=== PATIENT | female | born 1935 | race Caucasian/White ===

== ENCOUNTER → 2016-05-20 | Emergency (ER) | payer OTHER, MEDICARE ==
[~2016-05-20] VITALS: Ht 162.6 cm; Wt 76.2 kg
[~2016-05-20] MED LIST: ADVAIR HFA 45-218 GM IH; ATIVAN0.5 MG PO; AZITHROMYCIN 2250 MG PO; BACLOFEN 10MG T10 MG PO; BENADRYL25 MG PO; BENTYL 10 MG CA10 M1 PO; BENTYL10 MG PO; BIOTIN1 MG PO; BYSTOLIC 5 MG5 M1 PO; CALCIUM 500 +1 EACH PO; CARAFATE 1 GM TA1 G1 PO; CARAFATE1 GM PO; CEFDINIR300 MG PO; CELEXA 20 MG TA20 M1 PO; CELEXA10 MG PO; CELEXA40 MG PO; CITALOPRAM HBR40 MG PO; CLONAZEPAM 1 MG1 M1 PO; CYMBALTA20 MG PO; DICYCLOMINE HCL10 MG PO; DILAUDID 2 MG TA2 MG; DILAUDID 2 MG TA2 MG PO; DILAUDID1 MG/1 ML PO; DILAUDID2 M1 PO; DILAUDID2 MG PO; GABAPENTIN 100100 MG; GABAPENTIN 100100 MG PO; GAVISCON500 MG PO; HYDROXYZINE; HYOSCYAMINE0.125 MG PO; HYOSCYAMINE0.15 MG PO; IBUPROFEN 200200 M1 PO; IBUPROFEN PO; ILEVRO1.7 ML OP; INTRAT INTRATHECA; INTRATHECAL MED; IRON325 PO; KLOR-CON 1010 MEQ PO; LASIX 20 MG TAB20 MG PO; LASIX 40 MG TAB40 M2 PO; LEXAPRO 10 MG T10 M1 PO; LEXAPRO20 MG PO; MIRALAX17 GM PO; NORCO 5-325 TA1 EACH PO; ONDANSETRON HCL4 M2 PO; PEPCID40 MG PO; PERCOCET 10-321 EACH PO; PHENERGAN 25 MG25 M1 PO; PLAVIX 75 MG TA75 MG PO; POTASSIUM20 PO; PREDNISONE 10 M10 MG PO; PREVACID 30MG C30 M1 PO; PRILOSEC 20 MG20 MG PO; PROMETHAZINE/C118 ML PO; PROTONIX40 M1 PO; PROZAC10 MG PO; REFRESH LIQUIGE15 ML OP; REFRESH TEARS15 ML OP; RESTASIS1 EACH OPHTHALMIC; SAVAYSA30 MG PO; SAVAYSA60 MG PO; SENNA-S TABLET1 EACH PO; SENOKOT-S1 TA1 PO; TIMOLOL MA0.25 %/52 OPHTHALMIC; VALIUM5 MG PO; VITAMIN B-12100 MCG PO; VITAMIN D1000 UNI1 PO; WELLBUTRIN 100100 MG PO; ZOFRAN ODT4 MG PO; [UNRECOGNIZED DRUG - REMARK]
[2016-05-20 12:16] VITALS: BP 139/61
== END ==
LOC: ER 12:16
DX: M25.511 Pain in right shoulder (principal); K21.9 Gastro-esophageal reflux disease without esophagitis; G89.29 Other chronic pain; F32.9 Major depressive disorder, single episode, unspecified; I48.91 Unspecified atrial fibrillation; G47.30 Sleep apnea, unspecified; M19.90 Unspecified osteoarthritis, unspecified site; Z87.891 Personal history of nicotine dependence; Z86.2 Personal history of diseases of the blood and blood-forming organs and certain disorders involving the immune mechanism; Z86.73 Personal history of transient ischemic attack (TIA), and cerebral infarction without residual deficits; W01.0XXA Fall on same level from slipping, tripping and stumbling without subsequent striking against object, initial encounter; Y93.89 Activity, other specified; Y92.098 Other place in other non-institutional residence as the place of occurrence of the external cause; Y99.8 Other external cause status

== ENCOUNTER → 2016-06-04 | Outpatient (CLI) | payer OTHER, MEDICARE | LOC: RAD 12:23 | DX: R06.00 Dyspnea, unspecified (principal); R06.02 Shortness of breath ==

== ENCOUNTER → 2016-06-14 | Outpatient (CLI) | payer OTHER, MEDICARE | END | disposition home or self-care (01) | LOC: RAD 09:04 | DX: S46.111A Strain of muscle, fascia and tendon of long head of biceps, right arm, initial encounter (principal); X58.XXXA Exposure to other specified factors, initial encounter ==

== ENCOUNTER → 2016-07-02 | Outpatient (CLI) | payer OTHER, MEDICARE ==
[~2016-07-02] VITALS: Ht 154.9 cm; Wt 82.4 kg
[~2016-07-02] MED LIST changes: +CLONAZEPAM2 MG PO
--- NOTE | ~2016-07-02 | HPC ---
[facility] [place] [address] PAIN MANAGEMENT CONSULTATION Name: LESLEY PANDYA Room #: REG NIKKI Bennett#: [id number] Admission: 07/02/16 Attend Phys: Beau Medina DO Discharge: Date of : 35 Report #: [id number] THIS REPORT FOR: //name// CC: Brandon Medina The patient is a very pleasant 80-year-old female typically treated by Dr. Marcin Hernandez for lumbar radiculopathy status post decompressive laminectomy. She had a right L5-S1 transforaminal epidural injection with Dr. Marcin Hernandez in April with good efficacy, though pain has begun to recur. It is in the right low back, posterior thigh down to the leg. PHYSICAL EXAMINATION: Shows pleasant 80-year-old female, noting her pain is a 5/10. Rises from chair using armrest, modestly antalgic gait. Vital signs are generally stable as noted in the EMR with modest systolic hypertension at 164/78. Positive straight leg raise on the right with slight decreased plantar flexion strength. ASSESSMENT: Symptomatic lumbar radiculopathy. RECOMMENDATION: Proceed with epidural injection under fluoroscopy today, right L4-L5 transforaminal. PROCEDURE NOTE: After written informed consent was obtained, the patient taken to the fluoroscopy suite, placed in prone position. After sterile prep and drape, skin wheal was raised. A 22-gauge 4-1/4 inch Tuohy needle was placed from a right paramedian approach targeting the superior aspect to the right L5-S1 neural foramen. I was unable to get good access. We elected to abort and proceed with an L4-L5 transforaminal PROCEDURE: Transforaminal lumbar epidural injection under fluoroscopy. PROCEDURE NOTE: After both written and informed consent was obtained including risk of spinal cord damage, infection, increased pain and paralysis, the patient agreed to proceed. The patient was taken to the fluoroscopy suite, placed in a prone position with appropriate abdominal bolstering. After sterile prep with ChloraPrep and sterile drape, a skin wheal with 1% Xylocaine was raised. A 22 gauge 4-1/2 inch epidural Tuohy needle was inserted. From an oblique approach into the posterior-superior aspect of the right L4-L5 neural foramen with continuous pressure on the glass syringe plunger for loss of resistance. Glass syringe was filled with 2 cc of 0.1 Xylocaine. The glass loss of resistance syringe was removed. A low volume extension tubing was connected, negative aspiration was accomplished for cerebrospinal fluid or blood. 1 mL of Omnipaque was injected which showed spread both within the epidural space and laterally along the nerve root. This was followed with 80 mg of triamcinolone plus 1 mL of 1.5% preservative-free Xylocaine. Needle was partially withdrawn, 0.5 mL of Xylocaine was injected to clear the needle and the needle was removed. The [address] [address] PAIN MANAGEMENT CONSULTATION Name: MIRIAN PANDYAY Room #: REG NIKKI Bennett#: [id number] Admission: 07/02/16 Attend Phys: Beau Medina DO Discharge: Date of : 35 Report #: [id number] was cleansed, band-aid was applied. The patient was allowed to ambulate to the recovery room, discharged in good and stable condition. <ELECTRONICALLY SIGNED> By: Beau Mednia DO 07/04/16 0758 1549 [id number] Beau Medina DO /nt
[2016-07-02 10:32] VITALS: BP 164/78
== END | disposition home or self-care (01) ==
LOC: PAIN 06:45
DX: M54.16 Radiculopathy, lumbar region (principal); G89.29 Other chronic pain; I50.9 Heart failure, unspecified; Z87.891 Personal history of nicotine dependence; Z98.890 Other specified postprocedural states

== ENCOUNTER → 2016-08-09 | Outpatient (CLI) | payer OTHER, MEDICARE ==
[~2016-08-09] VITALS: Ht 154.9 cm; Wt 83.1 kg
--- NOTE | ~2016-08-09 | HPC ---
[facility] [place] [address] PAIN MANAGEMENT CONSULTATION Name: LESLEY PANDYA Room #: REG NIKKI Sabrina#: [id number] Admission: 08/09/16 Attend Phys: Marcin Hernandez MD Discharge: Date of : 35 Report #: [id number] THIS REPORT FOR: //name// CC: Brandon Hernandez DATE OF SERVICE: 08/09/2016 Followup visit for management of intrathecal infusion of bupivacaine, clonidine and hydromorphone. The patient returns today for refill of her intrathecal pump. This is a new pump placed about 2 years ago, she has 64 remaining months on the battery. Her refill date is 08/15/2016. She has PTM device, which will allow for 6-8 additional activations per day, but she says she does not use it very often. I have told her on many occasions that it will not work like a pill, she will not feel it working, but she can use it to increase her baseline if she would like to. Her dose is moderate. I have been slowly decreasing her dose with a little notice from these adjustments. Intended a repeat reduction again today by slight amount down from 4.6 to 4.1. She reports that she is doing well. She feels tired, although there have been no changes in her medication. She takes gabapentin in addition to her Dilaudid as supplemental medications for her intractable back pain with radiculopathy. Dr. Medina gave her a transforaminal epidural injection under fluoroscopic guidance at last visit. She thinks that might have provided for some relief. I have also given her injection. She had one in April. These seemed to be helpful when her pain becomes more severe allowing her to use less of her hydromorphone, which we are trying to avoid. PHYSICAL EXAMINATION: She is pleasant, alert and oriented. Her affect seems unchanged to me. Her vital signs, her blood pressure is 129/52, heart rate is 64. Her BMI is unchanged at 34.6. She is able to easily move from sitting to standing position and ambulates without difficulty. She has tenderness across her back scar. The pump is in the right lower quadrant, nontender. IMPRESSION: 1. Chronic intractable low back pain with radiculopathy on the right. 2. Intrathecal pump with management of complex infusion. PLAN: Refill on intrathecal infusion pump with a reprogramming session. PROCEDURE: Skin was prepped with ChloraPrep. Skin anesthetized and a 22-gauge non-coring needle advanced in the pump. Old medication removed and discarded and refilled with a combination clonidine, bupivacaine and hydromorphone. The [address] [address] PAIN MANAGEMENT CONSULTATION Name: LESLEY PANDYA Room #: REG NIKKI Bennett#: [id number] Admission: 08/09/16 Attend Phys: Marcin Hernandez MD Discharge: Date of : 35 Report #: [id number] pump was reprogrammed at a rate of 4.1 mg of hydromorphone per day, similarly lowing the other drugs by 9%. She was given a prescription for 60 hydromorphone, which is used only for breakthrough pain when severe. These 4 mg tablets are used very sparingly with good success. Safeguarding precautions under terms of our opioid agreement were reviewed. She will continue to use them carefully. Followup visit planned in 2 months. By: [id number] Marcin Hernandez MD /nt
[2016-08-09 11:12] VITALS: BP 129/52
== END | disposition home or self-care (01) ==
LOC: PAIN 06:42
DX: M54.16 Radiculopathy, lumbar region (principal); G89.29 Other chronic pain; I50.9 Heart failure, unspecified; Z79.899 Other long term (current) drug therapy; Z98.890 Other specified postprocedural states; Z87.891 Personal history of nicotine dependence

== ENCOUNTER → 2016-10-29 | Outpatient (CLI) | payer OTHER, MEDICARE ==
[~2016-10-29] VITALS: Ht 152.4 cm; Wt 83.3 kg
--- NOTE | ~2016-10-29 | HPC ---
[facility] [address] [place] [address] PAIN MANAGEMENT CONSULTATION Name: LESLEY PANDYA Room #: REG NIKKI Arellano.#: [id number] Admission: 10/29/16 Attend Phys: Marcin Hernandez MD Discharge: Date of : 35 Report #: [id number] THIS REPORT FOR: //name// CC: Brandon Hernandez DATE OF SERVICE: 10/29/2016 Followup visit for chronic back pain, post-laminectomy and fusion. SUBJECTIVE: The patient returns to pain clinic today for refill of her intrathecal infusion pump. She remains on relatively high doses of medication and has a PTM device as well. We have tried to minimize her use of systemic opioids and have done pretty good job, but I allowed her to use small doses of hydromorphone when the pain is quite severe. Her pump is infusing a combination of hydromorphone, bupivacaine and clonidine. Refill session is indicated today. For her radicular pain, she has also responded nicely at times to transforaminal epidural injection at L5-S1. This is the level where she had her laminectomy and she has L5-S1 cages in place for fusion. Her pain today radiates in that distribution. MEDICATIONS: Reviewed and reconciled. ALLERGIES: None. PAST MEDICAL HISTORY: The patient has been on Savaysa blood thinning medication. She discontinued it on 10/23 in anticipation of her injection, which is an appropriate interval. PHYSICAL EXAMINATION: GENERAL: She is pleasant and oriented. VITAL SIGNS: Blood pressure 123/43, heart rate is 58. BMI is 35.9. MUSCULOSKELETAL: She walks with pain and antalgic features to her gait. She complains of pain into her right leg. She has positive straight leg raising that radiates into the right buttock and down the right leg all the way to the calf and ankle. Sensation is intact. There is a generalized weakness throughout the right leg. IMPRESSION: 1. Chronic low back pain with radiculopathy, status post L5-S1 fusion. 2. Management of intrathecal infusion pump with complex infusion refill indicated today. 3. History of depression and transient ischemic attack. 4. Sleep apnea. [facility] [address] [place] [address] PAIN MANAGEMENT CONSULTATION Name: LESLEY PANDYA Room #: REG NIKKI Sabrina#: [id number] Admission: 10/29/16 Attend Phys: Marcin Hernandez MD Discharge: Date of : 35 Report #: [id number] 5. Atrial fibrillation. 6. Gastroesophageal reflux disease. PROCEDURE #1: Refill of intrathecal infusion pump. DESCRIPTION OF PROCEDURE: Skin was prepped with ChloraPrep, skin anesthetized and a 22-gauge non-coring needle advanced in the pump. Old medication removed and discarded. Anticipated 8 mL and retrieved the same. The pump was then refilled with a combination of hydromorphone, bupivacaine and clonidine daily dose with maximum activations will be hydromorphone 6.5, bupivacaine 4.3, clonidine 21 mcg per day. Refill interval is roughly 88 days. PROCEDURE #2: Transforaminal epidural injection L5-S1 on the right ____. DESCRIPTION OF PROCEDURE: The patient was taken to fluoroscopic suite, placed prone, skin prepped with ChloraPrep. Skin anesthetized over the L5-S1 neural foramen. Using triplanar fluoroscopic views, I advanced the needle into the neural foramen. A 1 mL of Omnipaque reproduced symptoms into the right leg. Injection was easy. There was no restriction. I then injected 3 mL of 0.5% lidocaine mixed with 80 mg triamcinolone. She tolerated the procedure with some discomfort, but was improved by the time she left the room. Followup visit is scheduled for refill of her intrathecal infusion pump at about 80 days. We will continue to provide her hydromorphone under terms of written opioid agreement. Safeguarding the medications and cautious use has been described at each visit. By: [id number] 0047 Marcin Hernandez MD /nt
[2016-10-29 12:41] VITALS: BP 123/43
== END | disposition home or self-care (01) ==
LOC: PAIN 07:23
DX: Z45.1 Encounter for adjustment and management of infusion pump (principal); M54.16 Radiculopathy, lumbar region; F32.9 Major depressive disorder, single episode, unspecified; Z86.73 Personal history of transient ischemic attack (TIA), and cerebral infarction without residual deficits; Z68.35 Body mass index [BMI] 35.0-35.9, adult; I48.91 Unspecified atrial fibrillation; K21.9 Gastro-esophageal reflux disease without esophagitis; Z87.891 Personal history of nicotine dependence

== ENCOUNTER 2017-02-04 11:16 | Inpatient (IN) | payer OTHER, MEDICARE ==
[~2017-02-04] VITALS: Ht 154.9 cm; Wt 80.7 kg
--- NOTE | ~2017-02-04 | EKG ---
[place] [address] [facility] [employer] [place] [address] ELECTROCARDIOGRAM REPORT Name: LESLEY PANDYA Room #: 433-I ADM IN M.R.#: [id number] Admission: 02/04/17 Attend Phys: Brandon Nascimento MD Discharge: Date of : 35 Report #: [id number] THIS REPORT FOR: //name// [facility] ED Test Date: 2017-02-04 Test Time: 11:38:49 Pat Name: LESLEY PANDYA Department: Room: 433 I Gender: F Peripatologist: GREG : 1935 Requested By: Antony Akins Order Number: [id number] MD: Darnell Yadav Measurements Intervals [place] Rate: 122 P: [place]: QRS: 10 QRSD: 87 T: 36 QT: 298 QTc: 425 Interpretive Statements Atrial fibrillation Ventricular premature complex Low voltage, precordial leads Compared to ECG 01/22/2016 09:09:50 Low QRS voltage now present Electronically Signed On 02-05-2017 8:28:02 ROUTE SPECIALIST by Darnell Yadav [email or web address] <ELECTRONICALLY SIGNED> By: Darnell Yadav MD, [facility] 02/05/17 0828 1138 113 Darnell Yadav MD, [facility] /EPI
[~2017-02-04 11:16] MED LIST changes: +OMEPRAZOLE40 MG PO
[2017-02-04 11:40] VITALS: BP 152/80
[2017-02-04 12:16] LABS: HEMATOCRIT 35.7 % (37.0-47.0); HEMOGLOBIN 11.7 gm/dL (12.0-15.0); MCH 31.2 pg (26.0-34.0); MCHC 32.7 g/dL (28.0-37.0); MCV 95.5 fL (80.0-100.0); RBC 3.74 mil/uL (4.20-5.00); RDW 14.8 % (10.5-14.5); WBC 7.2 thou/uL (4.0-11.0)
[2017-02-04 12:41] LABS: ANION GAP 7 mmol/L (7-16); BUN 20 mg/dL (7-18); CALCIUM 9.2 mg/dL (8.5-10.1); CHLORIDE 104 mmol/L (98-107); CO2 31 mmol/L (21-32); CREATININE 1.3 mg/dL (0.6-1.0); POTASSIUM 4.1 mmol/L (3.5-5.1); SODIUM 142 mmol/L (136-145)
[2017-02-04 12:50] LABS: MAGNESIUM 2.3 mg/dL (1.8-2.4); TROPONIN-I < 0.04 ng/mL (<0.06)
[2017-02-04 12:56] LABS: GLUCOSE 109 mg/dL (74-106)
[2017-02-04 13:18] VITALS: BP 152/80
[2017-02-04 13:53] LABS: URINE BILIRUBIN NEGATIVE (Negative); URINE BLOOD TRACE (Negative); URINE COLOR YELLOW; URINE GLUCOSE-RANDOM* NEGATIVE (Negative); URINE KETONES NEGATIVE (Negative); URINE LEUKOCYTES-REFLEX NEGATIVE (Negative); URINE PROTEIN (DIPSTICK) NEGATIVE (Negative); URINE SPECIFIC GRAVITY <= 1.005 (1.005-1.035); URINE UROBILINOGEN 0.2 E.U./dl (0.2-1.0)
[2017-02-04 14:53] VITALS: BP 132/63
[2017-02-04 17:05] VITALS: BP 121/56
[2017-02-04 20:40] VITALS: BP 121/42
[2017-02-05 00:54] VITALS: BP 113/60
[2017-02-05 06:24] VITALS: BP 120/31
[2017-02-05 06:36] LABS: CREATININE 1.3 mg/dL (0.6-1.0); POTASSIUM 4.6 mmol/L (3.5-5.1)
[2017-02-05 08:00] VITALS: BP 125/49
[2017-02-05 13:27] VITALS: BP 125/49
[2017-02-07] MEDS ORDERED: DILAUDID 2 MG TA2 MG PO (16:22)
[2017-02-14] MEDS ORDERED: DILAUDID 2 MG TA2 MG PO ×3 (14:04→14:07)
== END 2017-02-05 15:45 | disposition home or self-care (01) | DRG 292 ==
LOC: ER 11:16 → 4S 13:12 → EROBS 13:12 → 4S 15:07 → ENTRNSPT 02-05 13:46 → EDTRNSPTSTS 02-05 13:49 → 4S 02-05 15:45
PROVIDERS: Emergency Medicine; Family Medicine
DX: I11.0 Hypertensive heart disease with heart failure (principal); N17.9 Acute kidney failure, unspecified; I50.43 Acute on chronic combined systolic (congestive) and diastolic (congestive) heart failure; J44.9 Chronic obstructive pulmonary disease, unspecified; M19.90 Unspecified osteoarthritis, unspecified site; K21.9 Gastro-esophageal reflux disease without esophagitis; G89.29 Other chronic pain; F32.9 Major depressive disorder, single episode, unspecified; Z96.651 Presence of right artificial knee joint; M06.9 Rheumatoid arthritis, unspecified; I48.0 Paroxysmal atrial fibrillation; N28.9 Disorder of kidney and ureter, unspecified; I87.2 Venous insufficiency (chronic) (peripheral); Z90.49 Acquired absence of other specified parts of digestive tract; Z86.010 Personal history of colon polyps; Z86.73 Personal history of transient ischemic attack (TIA), and cerebral infarction without residual deficits; Z98.41 Cataract extraction status, right eye; Z98.42 Cataract extraction status, left eye; Z87.891 Personal history of nicotine dependence; Z79.01 Long term (current) use of anticoagulants
CPT/HCPCS: 10100

== ENCOUNTER → 2017-02-14 | Outpatient (CLI) | payer OTHER, MEDICARE ==
[~2017-02-14] VITALS: Ht 152.4 cm; Wt 83.9 kg
--- NOTE | ~2017-02-14 | HPC ---
[facility] [place] [address] PAIN MANAGEMENT CONSULTATION Name: LESLEY PANDYA Room #: REG NIKKI Arellano.#: [id number] Admission: 02/14/17 Attend Phys: Marcin Hernandez MD Discharge: Date of : 35 Report #: [id number] THIS REPORT FOR: //name// CC: Brandon Hernandez DATE OF SERVICE: 02/14/2017 Followup visit for chronic back pain and management of intrathecal infusion pump. The patient returns to Pain Clinic today for refill of her pump. She has a combination of Dilaudid, bupivacaine, and clonidine infusing. In addition, I provided with small amounts of hydromorphone, which she uses no more than about 2-3 tablets a day. These 2 mg tablets are helpful when her pain is severe. She has had no significant side effects from the medication. She is on opioid agreement, which we reviewed in detail today. The importance of managing side effects was reviewed and constipation has been managed effectively with Senokot-S. She has numerous medical problems and follows with her primary care physician, Dr. Brandon Nascimento. Dr. Abhilash Watson is her delivery director and helps with the cardiac issues including hypertension. She has COPD and wears nocturnal oxygen at times. PHYSICAL EXAMINATION: She is pleasant, alert and oriented. Blood pressure 124/62, heart rate 65, respirations 16, BMI 36.1. Her obesity was discussed and weight loss measures reviewed. She has tenderness across her low back. Pump is in the right lower quadrant and the abdomen nontender. IMPRESSION: 1. Chronic low back pain. 2. History of depression. 3. Sleep apnea. 4. Atrial fibrillation. 5. Gastroesophageal reflux disease. 6. Osteoarthritis. 7. Management of intrathecal infusion pump. 8. Management of high-risk opioid medication under terms of written opioid agreement. PROCEDURE: Refill and reprogram of intrathecal pump. Skin was prepped with ChloraPrep. Skin anesthetized and a 22-gauge non-coring needle advanced in the pump. Old medication removed and discarded. Pump was refilled with hydromorphone, clonidine and bupivacaine and reprogrammed. [facility] [address] [place] [address] PAIN MANAGEMENT CONSULTATION Name: LESLEY PANDYA Room #: REG CL Sabrina#: [id number] Admission: 02/14/17 Attend Phys: Marcin Hernandez MD Discharge: Date of : 35 Report #: [id number] DISCHARGE INFORMATION: Will be as follows: Maximum daily dose of Dilaudid 6.0, bupivacaine 4.0, clonidine 20 mcg. Refill interval 88 days on 05/13/2017. Estimated NIGEL is 58 months. By: [id number] [id number] Marcin Hernandez MD /nt
[2017-02-14 13:24] VITALS: BP 124/62
== END | disposition home or self-care (01) ==
LOC: PAIN 06:49
DX: Z45.1 Encounter for adjustment and management of infusion pump (principal); M54.5 Low back pain; G89.29 Other chronic pain; I50.9 Heart failure, unspecified; I48.91 Unspecified atrial fibrillation; G47.33 Obstructive sleep apnea (adult) (pediatric); K21.9 Gastro-esophageal reflux disease without esophagitis; M19.90 Unspecified osteoarthritis, unspecified site; Z79.891 Long term (current) use of opiate analgesic; Z79.899 Other long term (current) drug therapy

== ENCOUNTER 2017-02-20 13:06 | Inpatient (IN) | payer OTHER, MEDICARE ==
[~2017-02-20] VITALS: Ht 162.6 cm; Wt 81.7 kg
--- NOTE | ~2017-02-20 | EKG ---
[address] [place] [address] ELECTROCARDIOGRAM REPORT Name: LESLEY PANDYA Room #: 170-10 ADM IN M.R.#: [id number] Admission: 02/20/17 Attend Phys: Brandon Nascimento MD Discharge: Date of : 35 Report #: [id number] THIS REPORT FOR: //name// [facility] ED Test Date: 2017-02-20 Test Time: 13:27:20 Pat Name: LESLEY PANDYA Department: Room: 170 Gender: F Orchid Grower: NOEMY : 1935 Requested By: Antony Akins Order Number: [id number] MD: Carlo Webber Measurements Intervals [place] Rate: 68 P: 56 NC: 184 QRS: 2 QRSD: 117 T: 52 QT: 392 QTc: 417 Interpretive Statements Sinus rhythm Consider left atrial enlargement Nonspecific intraventricular conduction delay Low voltage, extremity and precordial leads Compared to ECG 02/04/2017 11:38:49 Intraventricular conduction delay now present Atrial fibrillation no longer present Ventricular premature complex(es) no longer present Electronically Signed On 02-20-2017 16:20:52 CASHIER COURTESY [employer]OTH by Carlo Webber [email or web address] <ELECTRONICALLY SIGNED> By: Carlo Webber MD 02/20/17 1620 1327 1327 Carlo Webber MD /EPI
[2017-02-20] MEDS ORDERED: RESTASIS1 EACH OPHTHALMIC (13:40)
[2017-02-20 14:14] LABS: HEMATOCRIT 32.9 % (37.0-47.0); HEMOGLOBIN 10.9 gm/dL (12.0-15.0); MCH 31.6 pg (26.0-34.0); MCHC 33.2 g/dL (28.0-37.0); RBC 3.46 mil/uL (4.20-5.00); RDW 14.5 % (10.5-14.5); WBC 7.8 thou/uL (4.0-11.0)
[2017-02-20 14:18] LABS: ANION GAP 8 mmol/L (7-16); BUN 27 mg/dL (7-18); CALCIUM 9.4 mg/dL (8.5-10.1); CHLORIDE 101 mmol/L (98-107); CO2 31 mmol/L (21-32); CREATININE 1.5 mg/dL (0.6-1.0); POTASSIUM 4.5 mmol/L (3.5-5.1); SODIUM 140 mmol/L (136-145)
[2017-02-20 14:28] LABS: TROPONIN-I < 0.04 ng/mL (<0.06)
[2017-02-20 14:37] LABS: GLUCOSE 106 mg/dL (74-106)
[2017-02-20 15:58] VITALS: BP 106/87
[2017-02-20 18:27] VITALS: BP 107/59
[2017-03-21] MEDS ORDERED: DILAUDID 2 MG TA2 MG PO (13:52)
[2017-05-23] MEDS ORDERED: VENTOLIN HFA 1818 GM INH (10:23)
[2017-05-23] MEDS ORDERED: DILAUDID 2 MG TA2 MG PO (10:35)
[2017-06-20] MEDS ORDERED: XARELTO20 MG PO (14:18)
[2017-06-20] MEDS ORDERED: CLONAZEPAM 1 MG1 M1 PO (14:19)
[2017-07-18] MEDS ORDERED: DILAUDID 2 MG TA2 MG PO (10:26)
[2017-08-23] MEDS ORDERED: DILAUDID 2 MG TA2 MG PO (13:05)
[2017-10-17] MEDS ORDERED: DILAUDID 2 MG TA2 MG PO (12:47)
[2017-11-07] MEDS ORDERED: HYDROCODON-ACE1 EAC5 PO (15:34)
[2017-12-02] MEDS ORDERED: HYDROCODON-ACE1 EAC5 PO (09:42)
== END 2017-02-20 18:27 | disposition home or self-care (01) | DRG 206 ==
LOC: ER 13:06 → EROBS 15:39
PROVIDERS: Emergency Medicine
DX: M94.0 Chondrocostal junction syndrome [Tietze] (principal); I48.91 Unspecified atrial fibrillation; J44.9 Chronic obstructive pulmonary disease, unspecified; I50.9 Heart failure, unspecified; F32.9 Major depressive disorder, single episode, unspecified; M19.90 Unspecified osteoarthritis, unspecified site; K21.9 Gastro-esophageal reflux disease without esophagitis; Z96.651 Presence of right artificial knee joint; Z86.73 Personal history of transient ischemic attack (TIA), and cerebral infarction without residual deficits; Z90.49 Acquired absence of other specified parts of digestive tract; Z98.42 Cataract extraction status, left eye; Z98.41 Cataract extraction status, right eye; Z98.1 Arthrodesis status; Z87.891 Personal history of nicotine dependence; Z79.899 Other long term (current) drug therapy

== ENCOUNTER → 2017-03-11 | Outpatient (CLI) | payer OTHER, MEDICARE ==
[~2017-03-11] MED LIST changes: +HYDROCODON-ACE1 EAC5 PO; +LEVAQUIN 500 M500 M2 PO; +SENNA-DOCUSATE1 EACH PO; +VENTOLIN HFA 1818 GM INH; +XARELTO20 MG PO
[2017-03-11 09:16] LABS: HEMOGLOBIN 11.6 gm/dL (12.0-15.0); MCH 30.8 pg (26.0-34.0); MCHC 32.2 g/dL (28.0-37.0); MCV 95.8 fL (80.0-100.0); RBC 3.75 mil/uL (4.20-5.00); RDW 14.6 % (10.5-14.5); WBC 6.7 thou/uL (4.0-11.0)
[2017-03-11 09:29] LABS: ALBUMIN 3.3 g/dL (3.4-5.0); CALCIUM 9.1 mg/dL (8.5-10.1); CREATININE 1.1 mg/dL (0.6-1.0); POTASSIUM 3.9 mmol/L (3.5-5.1); TOTAL BILIRUBIN 0.2 mg/dL (<0.1-1.0); TOTAL PROTEIN 6.2 g/dL (6.4-8.2)
== END ==
LOC: LABMALL 08:44 → 4E 12:38 → LABMALL 12:38
PROVIDERS: Family Medicine
DX: K86.89 Other specified diseases of pancreas (principal); Z90.49 Acquired absence of other specified parts of digestive tract

== ENCOUNTER 2017-03-12 16:57 | Inpatient (IN) | payer OTHER, MEDICARE ==
[~2017-03-12] VITALS: Ht 154.9 cm; Wt 83.5 kg
[~2017-03-12 16:57] MED LIST changes: -HYDROCODON-ACE1 EAC5 PO; -LEVAQUIN 500 M500 M2 PO; -SENNA-DOCUSATE1 EACH PO; -VENTOLIN HFA 1818 GM INH; -XARELTO20 MG PO
[2017-03-12 18:12] VITALS: BP 139/83
[2017-03-12 19:48] VITALS: BP 160/87
[2017-03-12 22:19] LABS: HEMATOCRIT 33.7 % (37.0-47.0); HEMOGLOBIN 11.1 gm/dL (12.0-15.0); MCH 31.5 pg (26.0-34.0); MCHC 32.9 g/dL (28.0-37.0); MCV 95.6 fL (80.0-100.0); RBC 3.52 mil/uL (4.20-5.00); RDW 14.6 % (10.5-14.5); WBC 6.9 thou/uL (4.0-11.0)
[2017-03-12 22:32] LABS: ALBUMIN 2.9 g/dL (3.4-5.0); CALCIUM 8.9 mg/dL (8.5-10.1); CREATININE 1.1 mg/dL (0.6-1.0); POTASSIUM 4.3 mmol/L (3.5-5.1); TOTAL BILIRUBIN 0.1 mg/dL (<0.1-1.0)
[2017-03-12 23:09] LABS: URINE BILIRUBIN NEGATIVE (Negative); URINE BLOOD 2+ (Negative); URINE CLARITY CLEAR; URINE COLOR YELLOW; URINE GLUCOSE-RANDOM* NEGATIVE (Negative); URINE KETONES NEGATIVE (Negative); URINE LEUKOCYTES-REFLEX NEGATIVE (Negative); URINE NITRITE-REFLEX NEGATIVE (Negative); URINE PROTEIN (DIPSTICK) NEGATIVE (Negative); URINE UROBILINOGEN 0.2 E.U./dl (0.2-1.0)
[2017-03-12 23:24] LABS: BACTERIA-REFLEX None Seen /HPF (None Seen); CASTS None Seen /LPF (None Seen); CRYSTALS None Seen /LPF (None Seen); MUCUS None Seen strn/LPF (None Seen); SQUAMOUS None Seen /LPF (0-3); URINE RBC 0-2 Rare /HPF (0-2); URINE WBC-REFLEX None Seen /HPF (0-5)
[2017-03-13 03:35] VITALS: BP 120/53
[2017-03-13 07:50] VITALS: BP 96/80
[2017-03-13 15:37] VITALS: BP 105/51
[2017-03-13 20:45] VITALS: BP 116/61
[2017-03-14 04:08] VITALS: BP 121/75
[2017-03-14 08:26] VITALS: BP 107/50
[2017-03-14 16:32] VITALS: BP 97/81
[2017-03-14 17:01] LABS: HEMATOCRIT 32.4 % (37.0-47.0); HEMOGLOBIN 10.7 gm/dL (12.0-15.0); MCH 31.7 pg (26.0-34.0); MCHC 33.1 g/dL (28.0-37.0); MCV 95.7 fL (80.0-100.0); RBC 3.38 mil/uL (4.20-5.00); RDW 14.6 % (10.5-14.5); WBC 6.8 thou/uL (4.0-11.0)
[2017-03-14 21:13] VITALS: BP 126/56
[2017-03-15 04:44] VITALS: BP 119/50
[2017-03-15] MEDS ORDERED: LEVAQUIN 500 M500 M2 PO (07:34)
[2017-03-15 13:02] VITALS: BP 119/50
[2017-03-21] MEDS ORDERED: DILAUDID 2 MG TA2 MG PO (13:52)
[2017-05-23] MEDS ORDERED: VENTOLIN HFA 1818 GM INH (10:23)
[2017-05-23] MEDS ORDERED: DILAUDID 2 MG TA2 MG PO (10:35)
[2017-06-20] MEDS ORDERED: XARELTO20 MG PO (14:18)
[2017-06-20] MEDS ORDERED: CLONAZEPAM 1 MG1 M1 PO (14:19)
[2017-07-18] MEDS ORDERED: DILAUDID 2 MG TA2 MG PO (10:26)
[2017-08-23] MEDS ORDERED: DILAUDID 2 MG TA2 MG PO (13:05)
[2017-10-17] MEDS ORDERED: DILAUDID 2 MG TA2 MG PO (12:47)
[2017-11-07] MEDS ORDERED: HYDROCODON-ACE1 EAC5 PO (15:34)
[2017-12-02] MEDS ORDERED: HYDROCODON-ACE1 EAC5 PO (09:42)
== END 2017-03-15 14:40 | disposition home health service (06) | DRG 392 ==
LOC: 4S 16:57
PROVIDERS: Family Medicine; Internal Medicine Gastroenterology
DX: K57.92 Diverticulitis of intestine, part unspecified, without perforation or abscess without bleeding (principal); Z96.651 Presence of right artificial knee joint; Z98.42 Cataract extraction status, left eye; K21.9 Gastro-esophageal reflux disease without esophagitis; I48.91 Unspecified atrial fibrillation; G89.29 Other chronic pain; J44.9 Chronic obstructive pulmonary disease, unspecified; I50.9 Heart failure, unspecified; F32.9 Major depressive disorder, single episode, unspecified; I11.0 Hypertensive heart disease with heart failure; K57.90 Diverticulosis of intestine, part unspecified, without perforation or abscess without bleeding; R13.10 Dysphagia, unspecified; K59.00 Constipation, unspecified; K76.0 Fatty (change of) liver, not elsewhere classified; M54.9 Dorsalgia, unspecified; Z79.899 Other long term (current) drug therapy; Z90.49 Acquired absence of other specified parts of digestive tract; Z98.1 Arthrodesis status; Z98.41 Cataract extraction status, right eye; Z86.73 Personal history of transient ischemic attack (TIA), and cerebral infarction without residual deficits; Z87.891 Personal history of nicotine dependence; Z86.010 Personal history of colon polyps
CPT/HCPCS: 10102

== ENCOUNTER → 2017-03-21 | Outpatient (CLI) | payer OTHER, MEDICARE ==
[~2017-03-21] VITALS: Ht 154.9 cm; Wt 82.6 kg
[~2017-03-21] MED LIST changes: +HYDROCODON-ACE1 EAC5 PO; +LEVAQUIN 500 M500 M2 PO; +SENNA-DOCUSATE1 EACH PO; +VENTOLIN HFA 1818 GM INH; +XARELTO20 MG PO
--- NOTE | ~2017-03-21 | HPC ---
[facility] [place] [address] PAIN MANAGEMENT CONSULTATION Name: LESLEY PANDYA Room #: REG RANJEETOfelia Arellano.#: [id number] Admission: 03/21/17 Attend Phys: Marcin Hernandez MD Discharge: Date of : 35 Report #: [id number] THIS REPORT FOR: //name// CC: Brandon Hernandez DATE OF SERVICE: 03/21/2017 DATE OF REGISTRATION: 03/21/2017 Followup visit for chronic pain, now with multiple pain generators. The patient was recently hospitalized with left lower quadrant abdominal pain. At first, it was felt this might be due to her back, but as time went on, it was considered that it may be an intra-abdominal pain. She was placed on Levaquin for possible diverticulitis. Her pain is eased somewhat, but was added on to my clinic today because her pain has continued to bother her at the level of 9/10. She reports it is worse with standing and walking and she will get some relief when she takes Dilaudid and assumes if she is lying in supine position or sits in a comfortable chair. In addition to the left lower quadrant abdominal pain, she complains of osteoarthritis pain of the right shoulder and the left shoulder as well as the left knee. Her son-in-law Dr. Juan Yeager provided her with some cortisone injections in all 3 of those joints with some improvement. She has had multiple surgeries including extensive lumbar surgery, colon resection, joint replacements, cervical fusion and intramedullary jessee of the right tibia following fracture in 2001. She has struggled with intermittent depression, chronic pain and anxiety. She lives with congestive heart failure, COPD, atrial fibrillation, gastroesophageal reflux disease. With all of her medical issues, she has been able to remain independent in her home with her . She has been able to provide for simple activities of daily living such as hygiene with minimal assistance. MEDICATIONS: Reviewed and reconciled, her list includes hydromorphone 2 mg 1-2 tablets as needed for breakthrough pain q. 4 hours, Lexapro 20 mg daily, omeprazole, gabapentin 100 mg t.i.d., potassium, Carafate, Savaysa, Bystolic, Lasix, MiraLax. ALLERGIES: None. PHYSICAL EXAMINATION: GENERAL: Her affect is anxious. This is typical. VITAL SIGNS: Her blood pressure is 117/57, heart rate 63, respirations 16, BMI [facility] [address] [place] [address] PAIN MANAGEMENT CONSULTATION Name: LESLEY PANDYA Room #: REG NIKKI ArellanoBlanca#: [id number] Admission: 03/21/17 Attend Phys: Marcin Hernandez MD Discharge: Date of : 35 Report #: [id number] is 34.4. MUSCULOSKELETAL: Bilateral shoulder pain is noted with restrictions in range of motion in all planes. She has tenderness in her knee with pain leg extension. Weightbearing increases pain dramatically in the back, lower extremities and in the abdomen. Her abdomen is soft. Bowel sounds are present. She has tenderness in the left lower quadrant, but there is no palpable mass. IMPRESSION: 1. Chronic intractable pain with osteoarthritis involving shoulders and the knee. 2. Post-laminectomy syndrome. 3. New onset left lower quadrant abdominal pain, possibly secondary to diverticulitis. She is on antibiotics at this time. 4. Management of intrathecal infusion pump containing a combination of medications, clonidine, bupivacaine, and hydromorphone. 5. Management of high risk opioid medication, hydromorphone. She is on modest doses with an MME at maximum daily dose of roughly 30-40. PLAN: 1. I have renewed her hydromorphone for her. 2. Increased her intrathecal pump by 19% to a total maximum daily dose of 6.8 of hydromorphone, 4.5 of bupivacaine, and 22 of clonidine assuming use of all PTM devices. Her baseline hydromorphone is 5.0 mg per day. 3. Prescribed an additional 60 hydromorphone 2 mg tablets with instructions regarding safeguarding and review of our opioid agreement. 4. I have been discussed by text with Dr. Nascimento the possibility of transitioning to a long-acting oral opioid. We will see what the increase in the intrathecal therapy does. <ELECTRONICALLY SIGNED> By: Marcin Hernandez MD 04/17/17 1640 1419 2249 Marcin Hernandez MD /nt
[2017-03-21 13:36] VITALS: BP 117/57
== END | disposition home or self-care (01) ==
LOC: PAIN 13:21
DX: G89.29 Other chronic pain (principal); M19.011 Primary osteoarthritis, right shoulder; M19.012 Primary osteoarthritis, left shoulder; M17.0 Bilateral primary osteoarthritis of knee; M96.1 Postlaminectomy syndrome, not elsewhere classified; R10.32 Left lower quadrant pain; I50.9 Heart failure, unspecified; I48.91 Unspecified atrial fibrillation; J44.9 Chronic obstructive pulmonary disease, unspecified; K21.9 Gastro-esophageal reflux disease without esophagitis; F41.8 Other specified anxiety disorders; Z98.0 Intestinal bypass and anastomosis status; Z79.891 Long term (current) use of opiate analgesic; Z79.899 Other long term (current) drug therapy; Z98.890 Other specified postprocedural states; Z87.891 Personal history of nicotine dependence

== ENCOUNTER → 2017-05-23 | Outpatient (CLI) | payer OTHER, MEDICARE ==
[~2017-05-23] VITALS: Ht 154.9 cm; Wt 80.7 kg
[~2017-05-23] MED LIST changes: -HYDROCODON-ACE1 EAC5 PO; -SENNA-DOCUSATE1 EACH PO; -XARELTO20 MG PO
--- NOTE | ~2017-05-23 | HPC ---
[facility] [address] [place] [address] PAIN MANAGEMENT CONSULTATION Name: LESLEY PANDYA Room #: REG NIKKI Arellano.#: [id number] Admission: 05/23/17 Attend Phys: Marcin Hernandez MD Discharge: Date of : 35 Report #: [id number] THIS REPORT FOR: //name// CC: Brandon Hernandez DATE OF SERVICE: 05/23/2017 Followup visit for management of chronic back pain and osteoarthritis. The patient returns today for refill of her intrathecal infusion pump. She has hydromorphone, bupivacaine and clonidine infusing. She is doing pretty well supplementing her intrathecal pump with no more than 2-4 mg of breakthrough hydromorphone. She has been on that for years, tolerates it well, has few side effects. There is some push back from family about using the oral opioid, but reflect back to her record, we have been giving her that for almost 10 years. She has shown no misuse, abuse or signs of addiction and seems to be helpful to her. I would suggest that we allow her to have the medication for breakthrough as it seems to be effective. She denies any significant side effects. PHYSICAL EXAMINATION: She is pleasant, alert and oriented, seems unchanged from previous visits and affect. Her blood pressure is 135/88, heart rate is 80. She is able to move independently from sitting to standing position, walks with mild antalgic gait. She has pain across her low back and tenderness from her previous laminectomy scars. She has pain in joints due to osteoarthritis involving mostly her left hip and her knees bilaterally. She describes her pain as "all over" and she has multi-joint arthritis. She has had previous knee replacement on the right in 2007. IMPRESSION: 1. Chronic intractable pain, status post laminectomy. 2. History of depression. 3. Sleep apnea. 4. Atrial fibrillation. 5. Gastroesophageal reflux disease. 6. History of arthritis. 7. Management of intrathecal infusion pump. 8. Management of high risk medications under terms of written opioid agreement. PROCEDURE: Refill and reprogramming of intrathecal pump. Skin prepped with ChloraPrep and anesthetized. A 22-gauge non-coring needle advanced in the pump. Old medication removed and discarded. Pump was refilled with hydromorphone, clonidine and bupivacaine and reprogramming. No changes were made in her medication. Discharge medications will be as follows; [address] [address] PAIN MANAGEMENT CONSULTATION Name: LESLEY PANDYA Room #: REG RANJEETOfelia Bennett#: [id number] Admission: 05/23/17 Attend Phys: Marcin Hernandez MD Discharge: Date of : 35 Report #: [id number] hydromorphone maximum daily dose with PTM 6.8, bupivacaine 4.5, clonidine 22. Low reservoir alarm date is now 08/09/2017 although it may continue out with her PTM if she does not use it frequently. I provided with prescription for 60 tablets of hydromorphone with instructions to use twice a day for breakthrough pain. Follow up as needed. <ELECTRONICALLY SIGNED> By: Marcin Hernandez MD 05/27/17 1408 1629 1947 Marcin Hernandez MD /nt
[2017-05-23 10:25] VITALS: BP 132/67
== END | disposition home or self-care (01) ==
LOC: PAIN 04-11 07:26
DX: Z45.2 Encounter for adjustment and management of vascular access device (principal); G89.29 Other chronic pain; F32.9 Major depressive disorder, single episode, unspecified; I48.91 Unspecified atrial fibrillation; K21.9 Gastro-esophageal reflux disease without esophagitis; M19.90 Unspecified osteoarthritis, unspecified site; Z87.891 Personal history of nicotine dependence

== ENCOUNTER → 2017-06-24 | Outpatient (CLI) | payer OTHER, MEDICARE ==
[~2017-06-24] VITALS: Ht 154.9 cm; Wt 81.4 kg
[~2017-06-24] MED LIST changes: +XARELTO20 MG PO
--- NOTE | ~2017-06-24 | HPC ---
[facility] [place] [address] PAIN MANAGEMENT CONSULTATION Name: LESLEY PANDYA Room #: REG NIKKI Adan.#: [id number] Admission: 06/24/17 Attend Phys: Marcin Hernandez MD Discharge: Date of : 35 Report #: [id number] THIS REPORT FOR: //name// CC: Brandon Hernandez DATE OF SERVICE: 06/24/2017 Followup visit for low back pain and bilateral lumbar radiculopathy. The patient is here today and she has specifically made an appointment to see if she can get an epidural injection, which has been helpful in the past. Over the last few weeks, she had increasing pain in her back that radiates down the posterior aspect of both legs. She is also noted to have increasing edema. Epidural injections have helped all of the above in the past and I have agreed to provide the injection. PAST MEDICAL HISTORY: As above, noted and reviewed on the electronic medical record. MEDICATIONS: Remain unchanged other than the discontinuation of her Xarelto four days ago in anticipation of injection. She takes hydromorphone 2 mg as needed twice a day for breakthrough pain. She has an intrathecal pump. Catheter goes in at L4-L5; to the right, we will need to be cautious in placing the epidural needle. PHYSICAL EXAMINATION: GENERAL: Pleasant female, in some distress. VITAL SIGNS: Blood pressure 138/50, heart rate 66. She is 5 feet 1 with a BMI of 33.9. EXTREMITIES: Examination of the lower extremities reveals 2-3+ pitting edema in bilateral lower extremities to the knee. Straight leg raising bilaterally reproduces pain in the L5-S1 distribution. Sensation is diminished with numbness bilaterally in the legs. IMPRESSION: Lumbar radiculopathy, post laminectomy and fusion. PROCEDURE: Epidural steroid injection L4-L5 under fluoroscopic guidance. PROCEDURE: The patient was taken to the fluoroscopic suite, placed prone, skin prepped with ChloraPrep. Skin anesthetized over L4-L5. A 20-gauge Tuohy epidural needle advanced, first attempt in the epidural space, loss of resistance technique. No blood or CSF aspirated. 1 mL of Omnipaque injected. Good spread of dye observed followed by 3 mL of 0.5% lidocaine mixed with 80 mg [facility] [address] [place] [address] PAIN MANAGEMENT CONSULTATION Name: LESLEY PANDYA Room #: REG [facility].#: [id number] Admission: 06/24/17 Attend Phys: Marcin Hernandez MD Discharge: Date of : 35 Report #: [id number] of triamcinolone. She tolerated the procedure well and was observed for 45 minutes and discharged. Followup as needed. By: [id number] Marcin Hernandez MD /nt
[2017-06-24 14:07] VITALS: BP 138/50
== END | disposition home or self-care (01) ==
LOC: PAIN 05:56
DX: M54.16 Radiculopathy, lumbar region (principal); Z68.33 Body mass index [BMI] 33.0-33.9, adult; Z79.899 Other long term (current) drug therapy; M96.1 Postlaminectomy syndrome, not elsewhere classified; Z98.890 Other specified postprocedural states; Z87.891 Personal history of nicotine dependence

== ENCOUNTER → 2017-07-11 | Outpatient (CLI) | payer OTHER, MEDICARE ==
[~2017-07-11] VITALS: Ht 154.9 cm; Wt 81.2 kg
--- NOTE | ~2017-07-11 | HPC ---
[facility] [place] [address] PAIN MANAGEMENT CONSULTATION Name: LESLEY PANDYA Room #: REG NIKKI Arellano.#: [id number] Admission: 07/11/17 Attend Phys: Marcin Hernandez MD Discharge: Date of : 35 Report #: [id number] THIS REPORT FOR: //name// CC: Brandon Yeager MD Followup visit for chronic low back pain with radiculopathy. The patient returns to pain clinic today and is complaining of pain exclusively in the low back. I gave her a lumbar epidural steroid injection at L4-L5 on 06/24/2017. I am pleased to report that this has completely eliminated the pain in her leg. She now complains of pain across the lumbosacral segment. It is worse on the right. There is localized tenderness in the area of curvature and scoliosis. Pain is worse with back extension. She scores her pain as 10/10. PQRS review shows generalized osteoarthritis with multiple joint aches and pains, a BMI of 33. She has no history of hypertension. She is on an opioid agreement with our clinic. Functional assessment tool is 55/70. She is a fall risk, needs help standing. She uses a walker. Physical exam of the lumbar spine reveals localized tenderness across the lumbosacral segment, pain with back extension. Straight leg raising is negative. IMPRESSION: 1. Chronic intractable low back pain with history of laminectomy and fusion. Fusion is at L5-S1 with interbody screws. 2. Spondylosis with right-sided low back pain. RECOMMENDATION: Medial branch nerve blocks. This may be a prelude to radiofrequency ablation if she responds well. PROCEDURE: She was taken to fluoroscopic suite, placed prone, skin prepped with ChloraPrep. Skin anesthetized on the right with 1% lidocaine. A 25-gauge needles were gently and carefully advanced into position at the L5, L4 and L3 transverse process. This correlates with the L4, L3 and L2 medial branch nerves. After negative aspiration, I injected each nerve with 1 mL of 0.5% bupivacaine mixed with 5 mg of triamcinolone. She tolerated the injections well and was observed for a short time and discharged. Pain score was reduced from 10 to 2 at discharge. Phone call was placed in the evening, but I was unable to [facility] [address] [place] [address] PAIN MANAGEMENT CONSULTATION Name: LESLEY PANDYA Room #: REG NIKKI Bennett#: [id number] Admission: 07/11/17 Attend Phys: Marcin Hernandez MD Discharge: Date of : 35 Report #: [id number] reach her regarding response. We will follow up in 1-2 weeks. May consider radiofrequency if the second diagnostic block is successful. By: [id number] Marcin Hernandez MD /nt
[2017-07-11 10:00] VITALS: BP 111/72
== END | disposition home or self-care (01) ==
LOC: PAIN 07:02
DX: M47.816 Spondylosis without myelopathy or radiculopathy, lumbar region (principal); G89.29 Other chronic pain; M54.5 Low back pain; I50.9 Heart failure, unspecified; Z98.890 Other specified postprocedural states; Z87.891 Personal history of nicotine dependence; Z79.899 Other long term (current) drug therapy; Z88.8 Allergy status to other drugs, medicaments and biological substances

== ENCOUNTER → 2017-08-08 | Outpatient (CLI) | payer OTHER, MEDICARE ==
[~2017-08-08] VITALS: Ht 154.9 cm; Wt 83.5 kg
--- NOTE | ~2017-08-08 | HPC ---
[facility] [address] [place] [address] PAIN MANAGEMENT CONSULTATION Name: LESLEY PANDYA Room #: REG NIKKI Sabrina#: [id number] Admission: 08/08/17 Attend Phys: Marcin Hernandez MD Discharge: Date of : 35 Report #: [id number] THIS REPORT FOR: //name// CC: Brandon Hernandez DATE OF SERVICE: 08/09/2017 Followup visit for chronic low back pain with spondylosis and radiculopathy. The patient returns to pain clinic today following medial branch nerve blocks at L2, L3, L4. I performed these with 5 mg triamcinolone to the joint capsule. She returns now almost a month out from those injections and reports that she has had pain score of 1 ever since! I have had several patients who have responded well to injections in and around the facet joint involving the capsule and the medial branch who had sustained response with local anesthetic and the anti-inflammatories and triamcinolone. When this occurs with such a straightforward injection, I typically wait to see how long the duration of response is. It is clearly diagnostic. She was miserable prior to her injections. She has considerably reduced her use of breakthrough hydromorphone. She continues to receive medication through an intrathecal pump maximizing with PTM at 6.8 mg of Dilaudid, 4.5 mg of bupivacaine and 22.8 mcg of clonidine. She is here today with her daughter, Kori. We reviewed the results of her injections. We discussed her medication in detail and I filled Kori in on the CDC guideline practice we follow. We discussed future plans, which may include a second diagnostic block as required and we will proceed only if we feel it is needed with radiofrequency ablation. Her targets are challenging and finding the exact medial branch nerve is always difficult with so much degenerative disease. PQRS review was completed as we do at each visit. She currently is not a fall risk. She seems to be more stabilized since her injections. She has generalized osteoarthritis involving multiple joints. Her BMI is 34.8 and is noted. She does not smoke nor use alcohol. She has an opioid agreement and has completed a risk assessment tool scoring 0 as well as a functional assessment tool 55/70. IMPRESSION: 1. Chronic low back pain with history of laminectomy and fusion. She has L5-S1 interbody screws. 2. Lumbar radiculopathy. 3. Spondylosis with right-sided low back pain, which has responded beautifully to injections. 4. Management of intrathecal infusion pump. [facility] [address] [place] [address] PAIN MANAGEMENT CONSULTATION Name: LESLEY PANDYA Room #: REG CLI Adan.#: [id number] Admission: 08/08/17 Attend Phys: Marcin Hernandez MD Discharge: Date of : 35 Report #: [id number] 5. Management of high risk medications under terms of written opioid agreement. I did not need to renew her hydromorphone given her reduced use. I plan to see her back in the clinic as needed for possible repeat diagnostic/therapeutic injections of the medial branch nerves. By: [id number] Marcin Hernandez MD /nt
[2017-08-08 12:41] VITALS: BP 99/63
== END | disposition home or self-care (01) ==
LOC: PAIN 07:00
DX: M47.26 Other spondylosis with radiculopathy, lumbar region (principal); Z45.1 Encounter for adjustment and management of infusion pump; M54.5 Low back pain; G89.29 Other chronic pain; I50.9 Heart failure, unspecified; Z79.899 Other long term (current) drug therapy; Z79.891 Long term (current) use of opiate analgesic; Z98.890 Other specified postprocedural states; Z87.891 Personal history of nicotine dependence

== ENCOUNTER → 2017-09-02 | Outpatient (CLI) | payer OTHER, MEDICARE ==
[~2017-09-02] VITALS: Ht 154.9 cm; Wt 80.8 kg
--- NOTE | ~2017-09-02 | HPC ---
[facility] [address] [address] PAIN MANAGEMENT CONSULTATION Name: LESLEY PANDYA Room #: REG NIKKI MBlancaWilfrid.#: [id number] Admission: 09/02/17 Attend Phys: Marcin Hernandez MD Discharge: Date of : 35 Report #: [id number] THIS REPORT FOR: //name// CC: Brandon Hernandez DATE OF SERVICE: 09/02/2017 Followup visit for low back pain with spondylosis. The patient returns to pain clinic today for renewal of her intrathecal infusion pump. She brought with her PTM which we had taken away previously. The batteries were . She even placed new batteries, and it did not start back up. It would have helped because we did not have a PTM programmed into the intrathecal pump. She was talking about possibly increasing oral medications, but I would prefer to use PTM at low dose, and so I have placed new batteries in her PTM, and we will program at basal rate as well as an additional bolus for her to utilize increasing her dose by up to 25% per day. Pain is similar as before, it is in her low back and radiates into her leg. She got great relief with an epidural injection performed in June and would like to get another one, we will schedule for that in a week or two. PQRS reviewed. She notes that she is doing well. She has not been a fall risk since earlier in the year. She has generalized osteoarthritis involving hips, knees and other joints. Her BMI is 34. She denies use of tobacco or alcohol. Her opioid agreement and risk tool were compared together. She has a functional assessment score of 55/70 suggesting significant interference of almost all activities of daily living from her chronic pain. IMPRESSION: 1. Chronic low back pain with history of laminectomy and fusion. 2. Lumbar radiculopathy. 3. Spondylosis with facet mediated lumbosacral pain. 4. Management of intrathecal infusion pump. RECOMMENDATION: 1. Return for an epidural steroid injection in 1-2 weeks. This will be about 3 months between injections. 2. Continue using hydromorphone for breakthrough 2 mg only as needed, lowest effective dose. Safeguard medications carefully per written agreement. 3. Refill and reprogramming of intrathecal infusion pump. DESCRIPTION OF PROCEDURE: Skin was prepped with ChloraPrep and anesthetized. A 22-gauge non-coring needle advanced in the pump. Old medication removed and discarded. Pump was refilled with hydromorphone, bupivacaine and clonidine and [facility] [address] [place] [address] PAIN MANAGEMENT CONSULTATION Name: LESLEY PANDYA Room #: REG NIKKI Sabrina#: [id number] Admission: 09/02/17 Attend Phys: Marcin Hernandez MD Discharge: Date of : 35 Report #: [id number] reprogrammed. Daily dose will be hydromorphone 5.0 mg per day, bupivacaine 3.3 and clonidine 16 mcg per day. She may increase that by 25% with her PTM, which was provided once again with new batteries today at discharge. Followup visit planned in about 2-3 months for pump refill, but I will see her back sooner for repeat lumbar epidural steroid injection when we can get her on the schedule. By: [id number] Marcin Hernandez MD /nt
[2017-09-02 14:35] VITALS: BP 148/55
== END | disposition home or self-care (01) ==
LOC: PAIN 06:42
DX: Z45.1 Encounter for adjustment and management of infusion pump (principal); M47.27 Other spondylosis with radiculopathy, lumbosacral region; G89.29 Other chronic pain; I11.0 Hypertensive heart disease with heart failure; I50.9 Heart failure, unspecified; Z79.899 Other long term (current) drug therapy; Z79.891 Long term (current) use of opiate analgesic; Z87.891 Personal history of nicotine dependence

== ENCOUNTER 2017-09-15 13:19 | Emergency (ER) | payer OTHER, MEDICARE ==
[~2017-09-15] VITALS: Ht 154.9 cm; Wt 79.4 kg
[2017-09-15 14:56] LABS: ABSOLUTE NEUTROPHILS 4.4 thou/uL (1.4-8.2); BASOPHILS 0.8 % (0.0-2.0); EOSINOPHILS 3.2 % (0.0-3.0); HEMATOCRIT 31.5 % (37.0-47.0); HEMOGLOBIN 10.6 gm/dL (12.0-15.0); LYMPHOCYTES 18.8 % (24.0-44.0); MCH 31.6 pg (26.0-34.0); MCHC 33.8 g/dL (28.0-37.0); MCV 93.6 fL (80.0-100.0); MONOCYTES 9.2 % (1.0-8.0); PLATELET COUNT 315 thou/uL (150-400); RBC 3.37 mil/uL (4.20-5.00); RDW 14.9 % (10.5-14.5); WBC 6.5 thou/uL (4.0-11.0)
[2017-09-15 15:07] LABS: POTASSIUM 4.3 mmol/L (3.5-5.1)
[2017-09-15 15:12] LABS: ALBUMIN 3.4 g/dL (3.4-5.0); TOTAL BILIRUBIN 0.5 mg/dL (<0.1-1.0); TOTAL PROTEIN 6.9 g/dL (6.4-8.2)
[2017-09-15 15:19] LABS: URINE BILIRUBIN NEGATIVE (Negative); URINE BLOOD 1+ (Negative); URINE CLARITY CLEAR; URINE COLOR YELLOW; URINE GLUCOSE-RANDOM* NEGATIVE (Negative); URINE KETONES NEGATIVE (Negative); URINE LEUKOCYTES-REFLEX NEGATIVE (Negative); URINE NITRITE-REFLEX NEGATIVE (Negative); URINE PROTEIN (DIPSTICK) NEGATIVE (Negative); URINE UROBILINOGEN 0.2 E.U./dl (0.2-1.0)
[2017-09-15 15:30] LABS: BACTERIA-REFLEX 1-9 Few /HPF (None Seen); CASTS None Seen /LPF (None Seen); CRYSTALS None Seen /LPF (None Seen); SQUAMOUS 0-3 Few /LPF (0-3); URINE RBC 0-2 Rare /HPF (0-2); URINE WBC-REFLEX None Seen /HPF (0-5)
[2017-09-15] MEDS ORDERED: SENNA-DOCUSATE1 EACH PO (17:54)
[2017-09-15 18:40] VITALS: BP 113/40
== END 2017-09-15 18:52 | disposition home or self-care (01) ==
LOC: ER 13:19
PROVIDERS: Emergency Medicine
DX: G89.29 Other chronic pain (principal); R10.32 Left lower quadrant pain; K21.9 Gastro-esophageal reflux disease without esophagitis; I48.91 Unspecified atrial fibrillation; J44.9 Chronic obstructive pulmonary disease, unspecified; F32.9 Major depressive disorder, single episode, unspecified; I11.0 Hypertensive heart disease with heart failure; I50.9 Heart failure, unspecified; Z90.49 Acquired absence of other specified parts of digestive tract; Z87.891 Personal history of nicotine dependence

== ENCOUNTER → 2017-09-19 | Outpatient (CLI) | payer OTHER, MEDICARE ==
[~2017-09-19] VITALS: Ht 154.9 cm; Wt 79.4 kg
[~2017-09-19] MED LIST changes: +SENNA-DOCUSATE1 EACH PO
--- NOTE | ~2017-09-19 | HPC ---
[facility] [address] [place] [address] PAIN MANAGEMENT CONSULTATION Name: LESLEY PANDYA Room #: REG NIKKI Sabrina#: [id number] Admission: 09/19/17 Attend Phys: Marcin Hernandez MD Discharge: Date of : 35 Report #: [id number] THIS REPORT FOR: //name// CC: THOM Hernandez DATE OF SERVICE: 09/19/2017 Followup visit for low back pain with radiculopathy. The patient presents to clinic today and would like an injection. She stopped her Xarelto for 3 days. She has previously done well with epidural injections and have also given her some good relief injecting along the lumbar facet joints. Today, she complains mostly of pain that radiates down into the left leg, although she does have bilateral pain. Pain intensity is as 8-9/10. She has an intrathecal pump and also is taking oral medications, which were reviewed and reconciled. No new medications were written for her today. PQRS review shows a pleasant 81-year-old in a wheelchair. Her affect is pleasant, mildly depressed. She is able to move from a sitting to standing position, but complains of pain on standing. She has pain with forward flexion and extension that radiates from her back to her hips, worse on the left and down into the leg and calf on the left. Straight leg raising is positive. Pump is on the right side and the intrathecal pump is nontender. Scars from her back from previous surgery noted. IMPRESSION: 1. Post-laminectomy syndrome with radiculopathy. 2. Intrathecal infusion pump. 3. Management of high risk oral medications for intractable pain. RECOMMENDATION: Epidural steroid injection under fluoroscopic guidance. PROCEDURE: The patient was taken to fluoroscopic suite, placed prone, skin prepped with ChloraPrep. Skin anesthetized over L4-L5 interspace. A 20-gauge Tuohy epidural needle advanced first attempt, the epidural space with loss of resistance technique. There was no blood or CSF aspirated. 1 mL of Omnipaque injected. Good spread of dye observed in the epidural space followed by 3 mL of [facility] [address] [place] [address] PAIN MANAGEMENT CONSULTATION Name: LESLEY PANDYA Room #: REG CL Adan.#: [id number] Admission: 09/19/17 Attend Phys: Marcin Hernandez MD Discharge: Date of : 35 Report #: [id number] 0.5% lidocaine mixed with 80 mg of triamcinolone. She tolerated the procedure well and was observed for 45 minutes and discharged. Follow up as needed. By: 1344 [id number] Marcin Hernandez MD /nt
[2017-09-19 12:47] VITALS: BP 107/51
== END | disposition home or self-care (01) ==
LOC: PAIN 06:39
DX: M54.16 Radiculopathy, lumbar region (principal); M96.1 Postlaminectomy syndrome, not elsewhere classified

== ENCOUNTER → 2017-11-07 | Outpatient (CLI) | payer OTHER, MEDICARE ==
[~2017-11-07] VITALS: Ht 152.4 cm; Wt 79.4 kg
[~2017-11-07] MED LIST changes: +HYDROCODON-ACE1 EAC5 PO
--- NOTE | ~2017-11-07 | HPC ---
[facility] [place] [place] [address] PAIN MANAGEMENT CONSULTATION Name: LESLEY PANDYA Room #: REG NIKKI ArellanoBlanca#: [id number] Admission: 11/07/17 Attend Phys: Marcin Hernandez MD Discharge: Date of : 35 Report #: [id number] THIS REPORT FOR: //name// CC: THOM Yeager MD DATE OF SERVICE: 11/07/2017 Followup visit for management of chronic intractable low back pain with radiculopathy. The patient returns to pain clinic today in followup. She has fallen twice within the last week or so. I queried her extensively about her falls. She reports that on one of her fall, she felt that she tripped in the bathroom rug. On the other one, she is not sure what happened. She was in the beauty shop and fell backwards. She has had no new medications. She has been on the same medications for chronic pain for a number of years. It is unlikely that these are the cause of her falls. We talked about diet and how much fluid she has been drinking. We talked about the likelihood of an orthostatic change that occurs frequently in elderly patients. I am concerned about her falls specifically due to the fact that she has been on blood thinners. She has been taking a slightly higher dose of oral pain medication because of these falls and increased pain. I would like to take her off of the hydromorphone and placed her on hydrocodone. I gave her hydrocodone tablets a day that will be an MME of 20. She currently is taking a bit higher dose of hydromorphone than prescribed and her daily use is around 30 MME. This would actually be a lower dose of hydrocodone, but opioid rotation typically is recommended with a slightly lower dose. I do not believe that this will be too much for her. Question is whether we will provide adequate relief. She has an intrathecal pump, which was interrogated today. We noted that her next refill is soon and we will reschedule her back in the pain clinic for refill in about 2 weeks. Medications will be ordered. In her intrathecal pump, she has a combination of bupivacaine, clonidine and hydromorphone, which has been stable for some time. PQRS review shows a pleasant female who is a fall risk. Her pain score is 9. She has new pain in her right shoulder. There is localized tenderness there. She has osteoarthritis in multiple joints including shoulders, hips and knees. She has blood pressure of 122/54, heart rate 69, respirations 14, O2 sat 91%. [address] [address] PAIN MANAGEMENT CONSULTATION Name: LESLEY PANDYA Room #: REG NIKKI Bennett#: [id number] Admission: 11/07/17 Attend Phys: Marcin Hernandez MD Discharge: Date of : 35 Report #: [id number] She denies use of tobacco or alcohol. She is on the blood thinner, Xarelto and cautioned regarding her recent falls was important part of her visit discussion today. She will make extra careful movements from sitting to standing. She has a history of hypertension. An opioid agreement has been signed through our clinic and she is at low risk for addiction through the opioid risk tool. BMI is 34.2. Weight loss has been discussed in the past and reviewed again today. IMPRESSION: 1. Chronic low back pain with radiculopathy. Post-laminectomy syndrome. 2. Recent falls. 3. Concern regarding falls and blood thinner. 4. Spondylosis, lumbosacral segment. 5. Osteoarthritis, left shoulder. 7. Management of high risk medications under terms of an opioid agreement. I renewed her medications with important safeguarding recommendations. She was given 1 month of hydrocodone. We will see her back in the pain clinic for pump refill to assess. By: 1644 [id number] Marcin Hernandez MD /nt
[2017-11-07 15:01] VITALS: BP 122/54
== END ==
LOC: PAIN 07:14
DX: M47.27 Other spondylosis with radiculopathy, lumbosacral region (principal); M19.012 Primary osteoarthritis, left shoulder; G89.29 Other chronic pain; M96.1 Postlaminectomy syndrome, not elsewhere classified; W19.XXXA Unspecified fall, initial encounter; Z79.891 Long term (current) use of opiate analgesic

== ENCOUNTER → 2017-12-02 | Outpatient (CLI) | payer OTHER, MEDICARE ==
[~2017-12-02] VITALS: Ht 154.9 cm; Wt 78.0 kg
--- NOTE | ~2017-12-02 | HPC ---
[facility] [address] [place] [address] PAIN MANAGEMENT CONSULTATION Name: LESLEY PANDYA Room #: REG RANJEETOfelia Bennett#: [id number] Admission: 12/02/17 Attend Phys: Teri Forte Discharge: Date of : 35 Report #: [id number] THIS REPORT FOR: //name// CC: Teri Hernandez MD DATE OF SERVICE: 12/02/2017 The patient's followup visit today for intrathecal pump fill for her low back pain with spondylosis. HISTORY OF PRESENT ILLNESS: The patient returns to the clinic today for her intrathecal pump refill for her low back pain. She states that she has fallen recently and was at [facility] and in rehab for a total of about 8 days. She states that she may have been dizzy, but unsure if that was the cause. She said she fell off the couch and hit her walker hurting her knee, so today, she complains of left leg pain and right shoulder pain that is sharp, achy with a pain score of 6/10 at its worse with activity, but better with her medicines and repositioning herself. She does use a walker today, and she is still living at home with her and is doing some therapy there now on her own. ALLERGIES: No known drug allergies. MEDICATIONS: For this patient are hydrocodone 10/325 half to one tablet twice daily, Senokot, clonazepam 1 mg once a day as needed, Xarelto 20 mg once a day, albuterol inhaler if needed, Restasis drops twice daily, Lexapro 20 mg once a day, omeprazole 40 mg once a day, Neurontin 100 mg twice a day, potassium 20 mEq a day, Carafate 1 g 4 times a day, Bystolic 5 mg once a day and Lasix 40 mg daily. The patient's PQRS, she does have a history of osteoarthritis in her bilateral shoulders and her back. Height 5 feet 1 inch, weight 172. The patient's BMI is 32.5. Vital signs 117/63, pulse 65, respirations 16, oxygen level is 97%. Pain score of 6/10. Fall risk. Denies dizziness currently, needs help walking and standing, uses a walker and has fallen in the last 3 months. The patient's blood thinner is Xarelto. She has a history of hypertension, opioid therapy is greater than 6 weeks and has an opioid signed contract on the chart. Her risk assessment tool is low. Her functional assessment is 55/70. Denies recreational drug use. She is a former tobacco smoker and does not use alcohol. [place] and [place], K-TRACS was performed on this patient and the patient is getting appropriate medications from Dr. Marcin Hernandez and no other doctors for narcotics, so they are appropriate with no aberrant behavior. [address] [address] PAIN MANAGEMENT CONSULTATION Name: LESLEY PANDYA Room #: REG [facility] Sabrina#: [id number] Admission: 12/02/17 Attend Phys: Teri Forte Discharge: Date of : 35 Report #: [id number] PHYSICAL EXAMINATION: This is an alert and oriented female. The lumbar spine reveals some tenderness as well as her knee and the patient states she does have some tenderness in both arms. ASSESSMENT: 1. Chronic intractable low back pain secondary to history of her laminectomy and fusion at L5-S1 with interbody screws. 2. Spondylosis, right side, low back pain. PROCEDURE: Today, refill of her intrathecal pump. Her skin was prepped with ChloraPrep and a 22 non-coring needle advanced into the pump. Old medication was removed and discarded. Pump was refilled with hydromorphone 30 mcg, bupivacaine 20 mg and clonidine 100 mcg and reprogrammed daily dose of her medication is Dilaudid 5 mg a day, bupivacaine 3.3 mg per day, clonidine 16.6 mcg a day. She does have a PTM that she is able to use 4 times in a 24-hour period. We did not increase her pump or her PTM today. Her PTM was then also linked to her new alarm date, which is 02/24/2018. The patient warned and instructed to refill her pump before this date. The patient denied any somnolence or irritation of the pump site before discharge. PLAN: Since the patient has had more recent falls, unsure if it was dizziness. We looked over her medications and decided at this time to stop her gabapentin, which is 100 mg twice a day. We told the patient that she could stop this and should not have any problems with side effects.The patient aslo given a script today for hydrocodone 10/325 one tablet twice a day as needed. She may take 1/2 a pill at a time if needed or 1 pill. The patient states this is beneficial and is liking it better than the Dilaudid oral pills that she was previously on while she was in the hospital for her recent fall. She was discharged with a Dilaudid prescription. Once the patient was home, family removed this medicine and she restarted her hydrocodone at that time. 2. The patient was discharged, states that she was feeling fine with no side effects from her pump refill. 3. The patient will return to the clinic as needed for either a possible epidural injection by Dr. Marcin Hernandez or a pump refill in February or earlier if medications are needed. 4. The patient was seen in collaboration with Dr. Marcin Hernandez who performed a pump refill today. <ELECTRONICALLY SIGNED> By: Teri Forte 12/03/17 0744 [id number] Teri Forte /nt
[2017-12-02 09:51] VITALS: BP 117/63
== END | disposition home or self-care (01) ==
LOC: PAIN 07:05
DX: Z45.1 Encounter for adjustment and management of infusion pump (principal); G89.29 Other chronic pain; M19.012 Primary osteoarthritis, left shoulder; M19.011 Primary osteoarthritis, right shoulder; M47.26 Other spondylosis with radiculopathy, lumbar region; I11.0 Hypertensive heart disease with heart failure; I50.9 Heart failure, unspecified; Z98.890 Other specified postprocedural states; Z98.1 Arthrodesis status; Z79.899 Other long term (current) drug therapy; Z79.01 Long term (current) use of anticoagulants; Z87.891 Personal history of nicotine dependence; Z79.891 Long term (current) use of opiate analgesic

== ENCOUNTER → 2018-01-21 | Outpatient (CLI) | payer OTHER, MEDICARE ==
[~2018-01-21] VITALS: Ht 154.9 cm; Wt 79.4 kg
--- NOTE | ~2018-01-21 | HPC ---
[facility] [address] [place] [address] PAIN MANAGEMENT CONSULTATION Name: LESLEY PANDYA Room #: REG NIKKI Arellano.#: [id number] Admission: 01/21/18 Attend Phys: Seun Medina DO Discharge: Date of : 35 Report #: [id number] THIS REPORT FOR: //name// CC: Seun Hernandez MD DATE OF SERVICE: 01/21/2018 CHIEF COMPLAINT: Low back pain, lower extremity pain and paresthesias. HISTORY OF PRESENT ILLNESS: As you know, the patient is an 82-year-old female who follows with my partner, Dr. Marcin Hernandez, for intrathecal pump therapy and intermittent epidural injections. Due to a conflict of schedules, the patient was placed on my clinic schedule to undergo epidural injection as Dr. Hernandez is out of town. She returns indicating a pain today of about 9-10/10. She has stopped her Xarelto in preparation for today's procedure. She returns today to undergo epidural injection under fluoroscopic guidance to address low back and bilateral lower extremity symptoms. ALLERGIES: No known drug allergies. CURRENT MEDICATIONS: Furosemide, Bystolic, sucralfate, potassium chloride, gabapentin, omeprazole, escitalopram, cyclobenzaprine, albuterol, Xarelto, clonazepam, Senokot, hydrocodone. Intrathecally, the patient is receiving clonidine, bupivacaine and hydromorphone. SOCIAL HISTORY: The patient denies tobacco, alcohol, IV or illicit drug use. She is retired, retired years ago, unaccompanied today. PQRS: The patient has known arthritic changes of the weightbearing joints including bilateral hips, bilateral knees and low back, placing pain intensity today at 9-10/10. She is a fall risk. She has had a fall in the last 3 months. She is on Xarelto for a blood thinner. She is treated for hypertension. She has been on opioids for an extended period of time. She reportedly has a low potential for addiction, placing pain impact score of 55/70, severe interference with daily activities secondary to pain. PHYSICAL EXAMINATION: VITAL SIGNS: Blood pressure 137/73, pulse 62, respiratory rate 18 and unlabored, the patient 92% on room air. Height 5 feet 2 inches tall, weighs 175 pounds, BMI calculated 33.1. GENERAL: Well-developed, well-nourished, well-hydrated 82-year-old kyphotic and scoliotic female, appearing stated age, placing current pain score 9-10/10. HEENT: Normocephalic, atraumatic. Pupils equal, round, reactive to light. [address] [address] PAIN MANAGEMENT CONSULTATION Name: LESLEY PANDYA Room #: REG CLOfelia Bennett#: [id number] Admission: 01/21/18 Attend Phys: Seun Medina DO Discharge: Date of : 35 Report #: [id number] EXTREMITIES: Show no clubbing, no cyanosis, no edema. MUSCULOSKELETAL: Lower extremity strength is symmetrical, but diminished bilaterally due to deconditioning. Seated straight leg raising negative. Supine straight leg raising negative. CHRIS test negative. Modified Gaenslen's positive for axial low back pain. Ankle clonus negative. Babinski is negative. ASSESSMENT: 1. Chronic lumbar radiculopathy. 2. Displacement of lumbar intervertebral disk with radiculopathy. 3. Lumbosacral spondylosis with radiculopathy. 4. Failed lumbar spine surgery. 5. Chronic intractable pain. PLAN: 1. The patient returns today in followup visit requesting to undergo a lumbar epidural injection under fluoroscopic guidance. The patient states that this in combination with medication management via intrathecal pump and oral medications works well for pain control. The patient is placing pain today at 9-10/10 and denying any injury or trauma that may have led to symptom recurrence. She returns today requesting this injection today. 2. The patient was provided the risks and benefits of a lumbar epidural injection. These risks include but are not necessarily limited to bleeding, bruising, infection, worsening pain, no relief of pain, also risk of temporary or permanent muscle weakness, temporary or permanent nerve damage, possible paralysis and . The patient states she understood and wished to proceed. 3. No medication changes made at today's visit. The patient to continue current medical therapy as previously prescribed. 4. We will see the patient back in followup visit on an as needed basis for the next in the series of epidural injections. PROCEDURE NOTE: DESCRIPTION OF PROCEDURE: Lumbar epidural steroid injection under fluoroscopic guidance. After obtaining written consent, the patient was taken back to fluoroscopy suite, placed in prone position with pillow under abdomen to decrease lumbar lordosis. Skin overlying lumbosacral area then prepped and draped in aseptic fashion. Lumbar intervertebral spaces were identified by AP fluoroscopy. Skin and subcutaneous tissue overlying target site of injection was anesthetized with 3 mL of 1% lidocaine. A 20-gauge 3-1/2 inch Tuohy needle advanced under fluoroscopic guidance towards the epidural space using a parasagittal approach. Epidural space identified using loss of resistance to air technique. After negative aspiration for heme or cerebrospinal fluid, 1 mL of Omnipaque injected. A lumbar epidurogram was confirmed using both AP and lateral fluoroscopy. After negative aspiration for [address] [address] PAIN MANAGEMENT CONSULTATION Name: LESLEY PANDYA Room #: REG NIKKI Bennett#: [id number] Admission: 01/21/18 Attend Phys: Seun Medina DO Discharge: Date of : 35 Report #: [id number] heme or cerebrospinal fluid, 4 mL of a solution containing 2 mL 40 mg per mL, 80 mg total triamcinolone, 2 mL of lidocaine 1% injected slowly. Needle retracted senior living, flushed with 1 mL of 1% lidocaine and removed. Sterile bandage placed over injection site. No new motor deficits present in lower extremity following the procedure. The patient tolerated procedure well, carefully escorted to recovery room in stable condition. No apparent complications. After meeting discharge criteria, the patient discharged home. By: [id number] Seun Medina DO /nt
[2018-01-21 13:00] VITALS: BP 137/73
== END | disposition home or self-care (01) ==
LOC: PAIN 11:58
DX: M51.16 Intervertebral disc disorders with radiculopathy, lumbar region (principal); M47.27 Other spondylosis with radiculopathy, lumbosacral region; M96.1 Postlaminectomy syndrome, not elsewhere classified; G89.29 Other chronic pain; I11.0 Hypertensive heart disease with heart failure; I50.9 Heart failure, unspecified; M19.90 Unspecified osteoarthritis, unspecified site; Z79.899 Other long term (current) drug therapy; Z79.01 Long term (current) use of anticoagulants; Z79.891 Long term (current) use of opiate analgesic; Z98.890 Other specified postprocedural states

== ENCOUNTER → 2018-03-06 | Outpatient (CLI) | payer OTHER, MEDICARE ==
[~2018-03-06] VITALS: Ht 154.9 cm; Wt 78.5 kg
--- NOTE | ~2018-03-06 | HPC ---
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 The patient returns to pain clinic today with her daughter, Kori. She is here today for refill of her intrathecal infusion pump and further discussion regarding other measures to provide relief for her. She now suffers with multiple pain generators including her low back, her right shoulder and her left knee. Her son-in-law, Dr. Juan Yeager has provided her with some subtherapeutic injections of the afflicted joints, but these have also shown diminishing benefits over the course of the last several months. She now complains regularly of uncontrolled pain despite our aggressive efforts with both intrathecal and systemic opioids and adjunct medications. She is also on gabapentin. She is on an antidepressant, but is not on norepinephrine serotonin antidepressant, I have suggested a low dose of Cymbalta 20 mg as an initiating dose. Rationale for use in pain management as well as depression was reviewed with the patient and Kori. She scores her daily pain as 8/9. She is obese with a BMI of 32.7, which is slightly down actually from previous visits. She is a fall risk and needs help standing and walking. She has been using a walker. This is concerning since she is on Xarelto. She has a history of hypertension. She has received oral opioids and is on an opioid agreement, which has been reviewed and signed. She is at low risk for addiction. Her functional assessment tool is 55/70 showing great interference of her pain with most of her activities of daily living. This has been fairly consistent score for her. She denies tobacco or alcohol. PHYSICAL EXAMINATION: Blood pressure is 114/55, heart rate is 65. She appears to be in some discomfort. She complains of pain across her low back in a broad distribution. She has tenderness there. She has limited motion. She has tenderness of the right shoulder and left knee and restricted motion. IMPRESSION: 1. Chronic intractable pain with multiple pain generators including low back, right shoulder, left knee. 2. Management of intrathecal infusion pump with refill and reprogramming. 3. Management of high risk medications under terms of written opioid agreement. 4. History of atrial fibrillation,, on anticoagulation therapy. [address] [address] PAIN MANAGEMENT CONSULTATION Name: LESLEY PANDYA Room #: REG NIKKI Bennett#: [id number] Admission: 03/06/18 Attend Phys: Marcin Hernandez MD Discharge: Date of : 35 Report #: [id number] 5. Depression. 6. Congestive heart failure. PROCEDURE: Refill reprogramming intrathecal infusion pump. Skin was prepped with ChloraPrep and anesthetized. A 22-gauge non-coring needle advanced in the pump. Old medication removed and discarded. Pump refilled with hydromorphone, clonidine and bupivacaine. An aggressive increase was performed today, but this is equal to what she is allowed currently with her PTM device up to a daily dose of 6.49. Her PTM device will allow her to increase her dose up to 9.4. PLAN: 1. Renewal of hydrocodone. Cautions regarding the dizziness associated with gabapentin and fall risk. 2. New prescription provided for Cymbalta 20 mg 1 tablet daily morning or evening depending on which seems to be preferable for her. The patient is instructed to continue to safeguard her medication carefully and we will see her back in the pain clinic for refill. Programming information provided. By: [id number] Marcin Hernandez MD /luana
[2018-03-06 14:34] VITALS: BP 114/55
--- NOTE | 2018-03-06 14:48 | NUR ---
Pain Clinic Assessment: 1. History of Osteoarthritis: GENERALIZED History of Rheumatoid Arthritis: Not Applicable 2. Height: 5 ft. 1 in. 154.9 cm. Weight: 173.0 lb. oz. 78.472 kg. Patient's BMI: 32.7 3. Vital Signs: BP: 114/55 Pulse: 65 Resp: 16 Temp: 02 Sat: 99 ECG Mon: 4. Pain Intensity: 8-9 5. Fall Risk: Dizziness: N Needs help standing or walking: Y Fallen in the last 3 months: N Fall risk comments: FELL TODAY 6. Patient on Blood Thinner: xarelto 7. History of Hypertension: Y 8. Opioid Therapy greater than 6 weeks: Y Opiate Contract Signed: 03/29/16 9. Risk Assessment Tool Provided: 0/low 10. Functional Assessment Tool: 55/ 11. Recreational Drug Use: Never Drug Type: Tobacco Use: Former Smoker Tobacco Type: Amount or Packs/day: How Many Years: Alcohol Use: No Frequency: Quant:
== END | disposition home or self-care (01) ==
LOC: PAIN 07:19
DX: Z45.1 Encounter for adjustment and management of infusion pump (principal); I48.91 Unspecified atrial fibrillation; F32.9 Major depressive disorder, single episode, unspecified; I50.9 Heart failure, unspecified; M19.011 Primary osteoarthritis, right shoulder; M17.12 Unilateral primary osteoarthritis, left knee; I10 Essential (primary) hypertension; Z79.01 Long term (current) use of anticoagulants; Z79.891 Long term (current) use of opiate analgesic; Z79.899 Other long term (current) drug therapy; Z87.891 Personal history of nicotine dependence

== ENCOUNTER 2018-04-10 13:58 | Inpatient (IN) | payer OTHER, MEDICARE ==
[~2018-04-10] VITALS: Ht 154.9 cm; Wt 76.7 kg
[2018-04-10 13:59] VITALS: BP 145/64
[2018-04-10 15:41] LABS: ABSOLUTE NEUTROPHILS 4.7 thou/uL (1.4-8.2); BASOPHILS 1.3 % (0.0-2.0); EOSINOPHILS 3.4 % (0.0-3.0); HEMATOCRIT 33.1 % (37.0-47.0); HEMOGLOBIN 10.8 gm/dL (12.0-15.0); LYMPHOCYTES 17.1 % (24.0-44.0); MCH 30.4 pg (26.0-34.0); MCHC 32.7 g/dL (28.0-37.0); MONOCYTES 8.7 % (1.0-8.0); PLATELET COUNT 349 thou/uL (150-400); POLYS 69.5 % (36.0-66.0); RBC 3.55 mil/uL (4.20-5.00); RDW 16.1 % (10.5-14.5); WBC 6.8 thou/uL (4.0-11.0)
[2018-04-10 15:48] VITALS: BP 145/64
[2018-04-10 15:49] LABS: CALCIUM 9.5 mg/dL (8.5-10.1); CREATININE 0.9 mg/dL (0.6-1.0); POTASSIUM 4.2 mmol/L (3.5-5.1)
[2018-04-10 15:55] LABS: ALBUMIN 3.5 g/dL (3.4-5.0); TOTAL BILIRUBIN 0.5 mg/dL (<0.1-1.0); TOTAL PROTEIN 7.5 g/dL (6.4-8.2)
[2018-04-10 16:35] VITALS: BP 145/64
[2018-04-10 17:26] VITALS: BP 150/54
[2018-04-10 19:58] VITALS: BP 137/55
[2018-04-11 04:25] VITALS: BP 143/57
--- NOTE | 2018-04-11 04:27 | NUR ---
ASSUMED CARE AT 1900, ASSESSMENT COMPLETED. PT DENIES PAIN EXCEPT WHEN SWALLOWING. DENIES NAUSEA OR SOB. PT HAS SHALLOW BREATHING WITH DIMINISHED LUNG SOUNDS, INITIALLY SATTING AROUND 85% ON RA, WITH DEEP BREATHING SHE CAME UP TO 93% BUT WOULD QUICKLY RETURN TO A SAT HOVERING BETWEEN 88-91%; NO SIGNS OF RESPIRATORY DISTRESS, WAS NOT WINDED WITH ACTIVITY, HANDS WERE WARM TO TOUCH. PLACED ON 2L NC TO MAINTAIN A SAT ABOVE 90%; PT REPORTS SHE VERY OCCASIONALLY WEARS 2L NC AT HOME. OBTAINED ONE TIME DOSE OF IV ATIVAN TO REPLACE HOME DOSE OF PO CLONAZEPAM. C/O ITCHING ON LEFT FOOT AND ANKLE, SITE IS RED BUT NO RASH OR OPEN AREAS PRESENT. NEEDS MODERATE ASSISTANCE TO GET UP AND DOWN FROM BED AND TOILET, MOVES SLOWLY, C/O PAIN AND REDUCED ROM IN RIGHT ARM FROM A TORN ROTATOR CUFF. PT SIGNED CONSENT FOR EGD TODAY, NPO AT MIDNIGHT. NO OTHER CONCERNS, WILL CONTINUE TO MONITOR.
[2018-04-11 07:35] VITALS: BP 133/56
--- NOTE | 2018-04-11 08:28 | NUR ---
PT ALERT XS 4 STATES NO PAIN AT PRESENT. THIS NURSE HELPED PATIENT TO CHANGE GOWN AND THEN ASSISTED TO BEDSIDE CHAIR. PT REMAINS NPO HAVING EDG THIS AM. GIVEN MOUTH SWABS TO WIPE MOUTH. PT PLEASANT AND COOPERATIVE WITH CARE.
--- NOTE | 2018-04-11 10:32 | NUR ---
ASSESSMENT-PT LIVES AT HOME IN A DUPLEX WITH HER WHO IS 85 YEARS OLD USES OXYGEN FOR EXERCISE AND AT NIGHT. HE DRIVES. PT USES A ROLLATOR WALKER TO GET AROUND. PT HAS O2 THAT SHE WEARS AT [facility]. PT HAS A SAT MONITOR AT HOME. DOES MOST OF THE HOUSEHOLD THINGS. THEY HAVE A CLEANING PERSON THAT COMES WEEKLY. PT HAS A LOCAL DTR [facility] AND ANOTHER DTR IN [place]. PT HAS HAD [facility]CS IN THE PAST. PT HAS A SHOWER CHAIR AND GRAB BARS. PT TO HAVE EGD DONE TODAY. FOLLOWING TO ASSIST WITH DC PLANNING.
[2018-04-11 16:19] VITALS: BP 133/56
[2018-04-11 16:59] VITALS: BP 133/56
== END 2018-04-11 17:00 | disposition home or self-care (01) | DRG 380 ==
LOC: ER 13:58 → EROBS 14:59 → 4E 14:59
PROVIDERS: Emergency Medicine; ADMIT Family Medicine
PROC: 0D738ZZ Dilation of Lower Esophagus, Via Natural or Artificial Opening Endoscopic (ICD-10-PCS; principal; 2018-04-11)
PROC: 0DB78ZX Excision of Stomach, Pylorus, Via Natural or Artificial Opening Endoscopic, Diagnostic (ICD-10-PCS; principal; 2018-04-11)
DX: K22.10 Ulcer of esophagus without bleeding (principal); E43 Unspecified severe protein-calorie malnutrition; K22.2 Esophageal obstruction; K44.9 Diaphragmatic hernia without obstruction or gangrene; K29.70 Gastritis, unspecified, without bleeding; G89.29 Other chronic pain; M54.9 Dorsalgia, unspecified; I50.9 Heart failure, unspecified; I10 Essential (primary) hypertension; I48.91 Unspecified atrial fibrillation; Z96.659 Presence of unspecified artificial knee joint; Z86.010 Personal history of colon polyps; Z90.49 Acquired absence of other specified parts of digestive tract; Z79.899 Other long term (current) drug therapy
CPT/HCPCS: 10084; 62110; 62900; 70005

== ENCOUNTER → 2018-05-08 | Outpatient (CLI) | payer OTHER, MEDICARE ==
[~2018-05-08] VITALS: Ht 154.9 cm; Wt 76.2 kg
[~2018-05-08] MED LIST changes: +LIDOCARE1 EACH TRANSDERM; +NORCO 10-325 T1 EACH PO
[2018-05-08 13:10] VITALS: BP 110/61
--- NOTE | 2018-05-08 13:19 | NUR ---
Pain Clinic Assessment: 1. History of Osteoarthritis: GENERALIZED History of Rheumatoid Arthritis: Not Applicable 2. Height: 5 ft. 1 in. 154.9 cm. Weight: 168.0 lb. oz. 76.204 kg. Patient's BMI: 31.8 3. Vital Signs: BP: 110/61 Pulse: 62 Resp: 14 Temp: 02 Sat: 95 ECG Mon: 4. Pain Intensity: 6 5. Fall Risk: Dizziness: N Needs help standing or walking: Y Fallen in the last 3 months: Y Fall risk comments: FELL YESTERDAY- OFF [facility] CAME AND GOT HER UP. SHE REFUSED TO GO TO ER 6. Patient on Blood Thinner: xarelto 7. History of Hypertension: Y 8. Opioid Therapy greater than 6 weeks: Y Opiate Contract Signed: 03/29/16 9. Risk Assessment Tool Provided: 0/low 10. Functional Assessment Tool: 55/70 11. Recreational Drug Use: Never Drug Type: Tobacco Use: Former Smoker Tobacco Type: Amount or Packs/day: How Many Years: Alcohol Use: No Frequency: Quant:
--- NOTE | 2018-05-14 15:29 | HPC ---
[facility] [address] [place] [address] PAIN MANAGEMENT CONSULTATION Name: LESLEY PANDYA Room #: REG NIKKI ArellanoBlanca#: [id number] Admission: 05/08/18 ������������������ Attend Phys: Marcin Hernandez MD Discharge: ������������������ Date of : 35 Report #: [id number] THIS REPORT FOR: //name// CC: Brandon Hernandez DATE OF SERVICE: 05/08/2018 REASON FOR VISIT: Followup visit for chronic low back pain and osteoarthritis, shoulder and knee. HISTORY OF PRESENT ILLNESS: The patient returns to Pain Clinic today for renewal of her intrathecal medications and oral medications. She is here today with her . I will say that this is one of the best visits I have seen from her in the long time. She states she is doing well. She is pleasant, upbeat and positive. She is not complaining of pain much at all today, although this translates to a pain score 6/10 for her. She describes pain in her right shoulder and left leg but states that even though she has fallen twice, she did not injure herself and did not need to go to the Emergency Room. The emergency medical services were called but she did not go. All medications reviewed and reconciled. There is no use of tobacco or alcohol. She is on Xarelto and Bystolic for treatment of hypertension. There is no use of tobacco or alcohol. She is clearly a fall risk. MEDICATIONS: All medications are reviewed and reconciled. PHYSICAL EXAMINATION: GENERAL: Again she is pleasant and upbeat today. VITAL SIGNS: Her blood pressure 110/61, heart rate 62, respirations 14 and BMI is 31.8. Her intrathecal pump is in the right lower abdomen and is nontender. IMPRESSION: 1. Chronic intractable pain with low back, right shoulder, left knee pain. Chronic arthropathy. 2. Management of intrathecal infusion pump with reprogramming. 3. Management of high risk oral medication, which she takes at modest dose for breakthrough hydrocodone 10/325, no more than one to two tablets daily for a morphine milligram equivalent of 20. 4. History of depression. 5. History of atrial fibrillation, on anticoagulation therapy. 6. Congestive heart failure. PROCEDURE: Refill and reprogramming of an intrathecal infusion pump. [facility] [address] [place] [address] PAIN MANAGEMENT CONSULTATION Name: LESLEY PANDYA Room #: REG [facility].#: [id number] Admission: 05/08/18 ������������������ Attend Phys: Marcin Hernandez MD Discharge: ������������������ Date of : 35 Report #: [id number] DESCRIPTION OF PROCEDURE: Skin was prepped with ChloraPrep and anesthetized at her request. A 22-gauge non-coring needle advanced into the pump. Old medication removed and discarded per protocol. Pump was refilled and reprogrammed. A PTM had been discontinued and she asked about it. We reprogrammed it into the mix. Her daily dose without the PTM will be 6.6 mg per day and with the PTM up to 9.6. I do not know if she has a device at home and she did not have it with her. Records show that we had talked about discontinuing altogether. I renewed her oral medication. She will continue to safeguard these medications carefully. She has completed an opioid risk tool and is at low risk for addiction. Followup visit is scheduled in June for refill of her intrathecal pump. ��������������������������������������������� <ELECTRONICALLY SIGNED> ���������������������������������������� By: Marcin Hernandez MD ��������������������������������������������� 05/14/18 1529 [id number] Marcin Hernandez MD /nt
== END | disposition home or self-care (01) ==
LOC: PAIN 06:49
DX: Z45.1 Encounter for adjustment and management of infusion pump (principal); G89.29 Other chronic pain; I48.91 Unspecified atrial fibrillation; F32.9 Major depressive disorder, single episode, unspecified; M17.10 Unilateral primary osteoarthritis, unspecified knee; M19.019 Primary osteoarthritis, unspecified shoulder; I11.0 Hypertensive heart disease with heart failure; I50.9 Heart failure, unspecified; Z79.01 Long term (current) use of anticoagulants; Z87.891 Personal history of nicotine dependence; Z79.899 Other long term (current) drug therapy

== ENCOUNTER 2018-05-13 10:25 | Emergency (ER) | payer OTHER, MEDICARE ==
[~2018-05-13] VITALS: Ht 154.9 cm; Wt 76.2 kg
[~2018-05-13 10:25] MED LIST changes: -LIDOCARE1 EACH TRANSDERM
[2018-05-13 11:37] LABS: ABSOLUTE NEUTROPHILS 4.4 thou/uL (1.4-8.2); BASOPHILS 1.2 % (0.0-2.0); EOSINOPHILS 5.3 % (0.0-3.0); HEMOGLOBIN 10.2 gm/dL (12.0-15.0); LYMPHOCYTES 15.4 % (24.0-44.0); MCH 30.4 pg (26.0-34.0); MCV 92.1 fL (80.0-100.0); MONOCYTES 10.4 % (1.0-8.0); PLATELET COUNT 407 thou/uL (150-400); POLYS 67.7 % (36.0-66.0); RBC 3.36 mil/uL (4.20-5.00); RDW 14.8 % (10.5-14.5); WBC 6.5 thou/uL (4.0-11.0)
[2018-05-13 11:44] LABS: CALCIUM 9.4 mg/dL (8.5-10.1); CREATININE 1.3 mg/dL (0.6-1.0)
[2018-05-13 11:50] LABS: ALBUMIN 3.1 g/dL (3.4-5.0); TOTAL BILIRUBIN 0.2 mg/dL (<0.1-1.0); TOTAL PROTEIN 7.3 g/dL (6.4-8.2)
[2018-05-13 12:36] LABS: URINE BILIRUBIN NEGATIVE (Negative); URINE BLOOD TRACE (Negative); URINE CLARITY CLEAR; URINE COLOR YELLOW; URINE GLUCOSE-RANDOM* NEGATIVE (Negative); URINE KETONES NEGATIVE (Negative); URINE LEUKOCYTES-REFLEX NEGATIVE (Negative); URINE NITRITE-REFLEX NEGATIVE (Negative); URINE PROTEIN (DIPSTICK) NEGATIVE (Negative); URINE UROBILINOGEN 0.2 E.U./dl (0.2-1.0)
[2018-05-13] MEDS ORDERED: LIDOCARE1 EACH TRANSDERM (13:47)
[2018-05-13 13:49] VITALS: BP 107/44
== END 2018-05-13 14:00 | disposition home or self-care (01) ==
LOC: ER 10:25
PROVIDERS: Physician Assistant
DX: N17.9 Acute kidney failure, unspecified (principal); M54.5 Low back pain; G89.29 Other chronic pain; K21.9 Gastro-esophageal reflux disease without esophagitis; J44.9 Chronic obstructive pulmonary disease, unspecified; I50.9 Heart failure, unspecified; I48.91 Unspecified atrial fibrillation; Z87.891 Personal history of nicotine dependence; Z98.890 Other specified postprocedural states; Z86.2 Personal history of diseases of the blood and blood-forming organs and certain disorders involving the immune mechanism; Z90.49 Acquired absence of other specified parts of digestive tract; W18.39XA Other fall on same level, initial encounter; Y93.89 Activity, other specified; Y92.89 Other specified places as the place of occurrence of the external cause; Y99.8 Other external cause status

== ENCOUNTER → 2018-06-09 | Outpatient (CLI) | payer OTHER, MEDICARE ==
[~2018-06-09] VITALS: Ht 154.9 cm; Wt 76.7 kg
[~2018-06-09] MED LIST changes: +LIDOCARE1 EACH TRANSDERM
[2018-06-09 10:42] VITALS: BP 122/65
[2018-06-09 10:44] VITALS: BP 122/65
--- NOTE | 2018-06-09 10:53 | NUR ---
Pain Clinic Assessment: 1. History of Osteoarthritis: GENERALIZED History of Rheumatoid Arthritis: Not Applicable 2. Height: 5 ft. 1 in. 154.9 cm. Weight: 169.0 lb. oz. 76.658 kg. Patient's BMI: 31.9 3. Vital Signs: BP: 122/65 Pulse: 74 Resp: 20 Temp: 02 Sat: 97 ECG Mon: 4. Pain Intensity: 8-9 5. Fall Risk: Dizziness: Y Needs help standing or walking: Y Fallen in the last 3 months: N Fall risk comments: FELL YESTERDAY- OFF [facility] CAME AND GOT HER UP. SHE REFUSED TO GO TO ER 6. Patient on Blood Thinner: xarelto 7. History of Hypertension: Y 8. Opioid Therapy greater than 6 weeks: Y Opiate Contract Signed: 03/29/16 9. Risk Assessment Tool Provided: 0/low 10. Functional Assessment Tool: 55/70 11. Recreational Drug Use: Never Drug Type: Tobacco Use: Former Smoker Tobacco Type: Amount or Packs/day: How Many Years: Alcohol Use: No Frequency: Quant:
--- NOTE | 2018-06-12 12:23 | HPC ---
[facility] [place] [address] PAIN MANAGEMENT CONSULTATION Name: LESLEY PANDYA Room #: REG NIKKI Sabrina#: [id number] Admission: 06/09/18 ������������������ Attend Phys: Marcin Hernandez MD Discharge: ������������������ Date of : 35 Report #: [id number] THIS REPORT FOR: //name// CC: Brandon Hernandez DATE OF SERVICE: 06/09/2018 Followup visit for chronic intractable left knee pain. The patient is here today in consultation. We spent most of the time today discussing her upcoming surgery. Dr. Patrica Garibay will be replacing her left knee. She is very apprehensive about surgery. I spent a lot of time today talking to her about the good things that will happen from knee replacement. After knee has healed, she should see improvements in her day to day pain, significant improvements. There will be a short period of recovery, which will last days, perhaps weeks, but during that time as long she is stoic and goes through her rehabilitation, she should at the end of the day feel better. This is a far different type of pain than the chronic pain she deals with does not have a chance for typically going away. The chance to replace the knee is one of great optimism. She should view it as such. While much of the visit today was cheerleading and hopefully helping her get through the acute pain associated with her surgery, we also discussed her chronic management with intrathecal pump and oral medication. I think she will be fine increasing her use of oral medications during the recovery period. I have counseled her that she will have pain, it is to be expected and this pain will continue to get better each day. The hospital will treat her pain effectively and I know that her daughter, Sangeeta and her son-in-law Juan will make sure that they treat her appropriately during the acute phase of recovery. I reviewed all her medications including the blood thinner, Xarelto and Bystolic she takes for hypertension. She denies use of tobacco and alcohol. She has, however, a fall risk. OBJECTIVE: Her BMI is elevated, she has tried to control weight, BMI is 31.9. She is not hypertensive today. Blood pressure is 122/65, heart rate 74, respirations 20. She moves from sitting to standing position, walks with antalgic features. Her knee is swollen and tender, there is crepitus. IMPRESSION: 1. Chronic intractable low back pain, right shoulder pain and left knee pain. The pain in her right knee is predominant. 2. Management of intrathecal infusion pump. She does not need any adjustment or reprogramming today. She has about a month and a half remaining in her current infusion. [address] [address] PAIN MANAGEMENT CONSULTATION Name: LESLEY PANDYA Room #: REG NIKKI Bennett#: [id number] Admission: 06/09/18 ������������������ Attend Phys: Marcin Hernandez MD Discharge: ������������������ Date of : 35 Report #: [id number] 3. Management of high risk oral medication. She has current hydrocodone. We may switch her back to hydromorphone for the post-surgical period for a short time. 4. History of depression. 5. Atrial fibrillation, on Xarelto. 6. History of congestive heart failure. PLAN: Follow up after surgery. ��������������������������������������������� <ELECTRONICALLY SIGNED> ���������������������������������������� By: Marcin Hernandez MD ��������������������������������������������� 06/12/18 1223 [id number] Marcin Hernandez MD /nt
== END ==
LOC: PAIN 07:09
DX: G89.29 Other chronic pain (principal); M25.562 Pain in left knee; M54.5 Low back pain; M19.011 Primary osteoarthritis, right shoulder; I48.91 Unspecified atrial fibrillation; I50.9 Heart failure, unspecified; F32.9 Major depressive disorder, single episode, unspecified; Z79.899 Other long term (current) drug therapy

== ENCOUNTER → 2018-07-17 | Outpatient (CLI) | payer OTHER, MEDICARE ==
[~2018-07-17] VITALS: Ht 154.9 cm; Wt 75.1 kg
[2018-07-17 13:13] VITALS: BP 125/58
--- NOTE | 2018-07-17 13:16 | NUR ---
Pain Clinic Assessment: 1. History of Osteoarthritis: GENERALIZED History of Rheumatoid Arthritis: Not Applicable 2. Height: 5 ft. 1 in. 154.9 cm. Weight: 165.6 lb. oz. 75.116 kg. Patient's BMI: 31.3 3. Vital Signs: BP: 125/58 Pulse: 64 Resp: 16 Temp: 02 Sat: 90 ECG Mon: 4. Pain Intensity: 8-9 5. Fall Risk: Dizziness: N Needs help standing or walking: Y Fallen in the last 3 months: N Fall risk comments: FELL YESTERDAY- OFF [facility] CAME AND GOT HER UP. SHE REFUSED TO GO TO ER 6. Patient on Blood Thinner: xarelto 7. History of Hypertension: Y 8. Opioid Therapy greater than 6 weeks: Y Opiate Contract Signed: 03/29/16 9. Risk Assessment Tool Provided: 0/low 10. Functional Assessment Tool: 55/70 11. Recreational Drug Use: Never Drug Type: Tobacco Use: Former Smoker Tobacco Type: Amount or Packs/day: How Many Years: Alcohol Use: No Frequency: Quant:
--- NOTE | 2018-07-21 18:13 | HPC ---
[facility] [address] [place] [address] PAIN MANAGEMENT CONSULTATION Name: LESLEY PANDYA Room #: REG NIKKI Sabrina#: [id number] Admission: 07/17/18 ������������������ Attend Phys: Marcin Hernandez MD Discharge: ������������������ Date of : 35 Report #: [id number] THIS REPORT FOR: //name// CC: Brandon Hernandez DATE OF SERVICE: 07/17/2018 Followup visit for management of chronic intractable pain with intrathecal pump. The patient returns to pain clinic today in followup for refill of her intrathecal infusion pump. She is doing much better, I believe. She walked in today with her walker. She has recently had her knee replaced. She is doing well. She still scores her pain as an 8-9/10, but I feel that her demeanor as a more positive and upbeat. She continues on a combination of hydromorphone, bupivacaine and clonidine. It is time for refill of her intrathecal infusion pump. She has generalized osteoarthritis, has done well now with status post knee replacement. Her BMI is 31.3. She is a fall risk. She fell yesterday off her scooter and medics came and got her up. She refused to go to the Emergency Room and this seems to be doing okay today. She is clearly a fall risk concern while on Xarelto. She has a history of hypertension under treatment and we provided with a small amount of hydrocodone when she has been using less, she signed an opioid agreement. She denies use of tobacco and alcohol. She lives in her own home with her . Her daughter, Kori Comfrey, RN checks on her and is a primary family caregiver. PHYSICAL EXAMINATION: Again, she is pleasant, alert and oriented, does not seem to be anxious. Her blood pressure 125/58, heart rate 64, respirations 16. Her pump is in the ____ angle in the right lower abdomen slightly tender. She complains of pain across her low back with some radiating pain into the legs bilaterally. IMPRESSION: 1. Chronic low back pain with radiculopathy. 2. Management of a refill of intrathecal infusion pump. PROCEDURE: Skin was prepped with ChloraPrep and 22-gauge non-coring needle advanced into the intrathecal pump. Old medication was removed and discarded per protocol. Pump was then refilled with a combination of hydromorphone, bupivacaine and clonidine. Reprogramming session was performed. At the conclusion of the process and before she was discharged, she complained [facility] [address] [place] [address] PAIN MANAGEMENT CONSULTATION Name: LESLEY PANDYA Room #: REG NIKKI FrenchRalf#: [id number] Admission: 07/17/18 ������������������ Attend Phys: Marcin Hernandez MD Discharge: ������������������ Date of : 35 Report #: [id number] of some itching the area of the pump refill and complained that she was feeling tired than usual. We watched her for 1 full hour. She did seem a different after the pump refill and perhaps more tired, but certainly there was no significant overdose. Her vital signs were stable. Blood pressure remained unchanged in the range of 120-130/60 with a heart rate is 60-70 in the recovery room, O2 sats also unchanged. She was discharged under the care of her . We called back to the home later and also received a phone call from her daughter, Kori, who said that she was slightly drowsy, but not markedly so. It is a concern of mine that she might have had a partial pocket absorption. Before she was discharged, I did once again prepped the area, placed a 22-gauge non-coring needle within the pump and withdrew a bit over 19 mL what we had anticipated to be returned and then reinstilled back into the pump. It does not appear that she has had a substantial pump pocket fill if any. We will followup through the night with Kori, she has my phone number. ��������������������������������������������� <ELECTRONICALLY SIGNED> ���������������������������������������� By: Marcin Hernandez MD ��������������������������������������������� 07/21/18 1813 1716 [id number] Marcin Hernandez MD /nt
== END | disposition home or self-care (01) ==
LOC: PAIN 07-03 07:01
DX: Z45.1 Encounter for adjustment and management of infusion pump (principal); M54.16 Radiculopathy, lumbar region; G89.29 Other chronic pain; I11.0 Hypertensive heart disease with heart failure; I50.9 Heart failure, unspecified; M19.90 Unspecified osteoarthritis, unspecified site; Z79.891 Long term (current) use of opiate analgesic; Z87.891 Personal history of nicotine dependence; Z96.659 Presence of unspecified artificial knee joint; Z79.01 Long term (current) use of anticoagulants

== ENCOUNTER → 2018-09-15 | Outpatient (CLI) | payer OTHER, MEDICARE ==
[~2018-09-15] VITALS: Ht 154.9 cm; Wt 73.6 kg
--- NOTE | ~2018-09-15 | HPC ---
[facility] [address] [place] [address] PAIN MANAGEMENT CONSULTATION Name: LESLEY PANDYA Room #: REG NIKKI Arellano.#: [id number] Admission: 09/15/18 ������������������ Attend Phys: Marcin Hernandez MD Discharge: ������������������ Date of : 35 Report #: [id number] THIS REPORT FOR: //name// CC: Brandon Hernandez DATE OF SERVICE: 09/15/2018 Followup visit for management of chronic intractable pain with intrathecal infusion pump. The patient returns to pain clinic today for refill. She seems to be doing pretty well today. She and her have recently moved into an assisted living home in [place]. It has been a bit dramatic, but is seeming to settle down a little bit here since the last time I talked to her. She reports today that her pain is fairly stable. She does not need an adjustment in her intrathecal settings. Daily dose currently is hydromorphone 6.6 mg, bupivacaine 4.4 and clonidine 22.1. PQRS REVIEW: 1. Positive for osteoarthritis. She has widespread joint complaints and has had an arthroplasty of the knee. She complains of shoulder pain mostly today. 2. BMI is 30.7. 3. VITAL SIGNS: Blood pressure 119/63, heart rate is 66, O2 sat 93, respirations 16. 4. Pain intensity 8-9 when up walking. 5. She is a fall risk. She fell off her scooter yesterday. She had some assistance returning to her scooter and refused to go to the Emergency Room. 6. She is on blood thinner, Xarelto. 7. She is treated for hypertension by Dr. Nascimento. Medications were reviewed and reconciled. 8. She is on an opioid agreement, last signed in 2017. She has completed also a risk tool and is considered at low risk for addiction score of 0. 9. She denies use of tobacco and alcohol. IMPRESSION: 1. Chronic intractable low back pain with radiculopathy. 2. Widespread degenerative osteoarthritis. 3. Management of intrathecal infusion pump. 4. Management of oral high risk medications. PROCEDURE: Skin was prepped with ChloraPrep. Skin was anesthetized and a 22-gauge non-coring needle advanced into the intrathecal pump. Old medication removed and discarded. There were no discrepancies. Medications were discarded [address] [address] PAIN MANAGEMENT CONSULTATION Name: LESLEY PANDYA Room #: REG [facility] Adan.#: [id number] Admission: 09/15/18 ������������������ Attend Phys: Marcin Hernandez MD Discharge: ������������������ Date of : 35 Report #: [id number] per protocol. Pump was then refilled with a combination of hydromorphone, bupivacaine and clonidine. Reprogramming session was performed. The medication programming was confirmed and initialed by myself, a copy provided to the patient and discharged. She does not need medications, having received those recently from our clinic and we reviewed the importance of safeguarding our opioid agreement. I did renew her clonazepam, which she uses at bedtime and has been on chronically and safely. She will carefully safeguard all medications. ��������������������������������������������� ���������������������������������������� By: ��������������������������������������������� 1823 1351 Marcin Hernandez MD /nt
[2018-09-15 13:34] VITALS: BP 119/63
--- NOTE | 2018-09-15 13:37 | NUR ---
Pain Clinic Assessment: 1. History of Osteoarthritis: GENERALIZED History of Rheumatoid Arthritis: Not Applicable 2. Height: 5 ft. 1 in. 154.9 cm. Weight: 162.2 lb. oz. 73.573 kg. Patient's BMI: 30.7 3. Vital Signs: BP: 119/63 Pulse: 66 Resp: 16 Temp: 02 Sat: 93 ECG Mon: 4. Pain Intensity: 8-9 WHEN UP 5. Fall Risk: Dizziness: N Needs help standing or walking: N Fallen in the last 3 months: N Fall risk comments: FELL YESTERDAY- [facility] CAME AND GOT HER UP. SHE REFUSED TO GO TO ER 6. Patient on Blood Thinner: xarelto 7. History of Hypertension: Y 8. Opioid Therapy greater than 6 weeks: Y Opiate Contract Signed: 03/29/16 9. Risk Assessment Tool Provided: 0/low 10. Functional Assessment Tool: 55/70 11. Recreational Drug Use: Never Drug Type: Tobacco Use: Former Smoker Tobacco Type: Amount or Packs/day: How Many Years: Alcohol Use: No Frequency: Quant:
== END | disposition home or self-care (01) ==
LOC: PAIN 06:58
DX: Z45.1 Encounter for adjustment and management of infusion pump (principal); M54.16 Radiculopathy, lumbar region; G89.29 Other chronic pain; M19.90 Unspecified osteoarthritis, unspecified site; I11.0 Hypertensive heart disease with heart failure; I50.9 Heart failure, unspecified; Z87.891 Personal history of nicotine dependence; Z79.01 Long term (current) use of anticoagulants; Z79.891 Long term (current) use of opiate analgesic; Z87.19 Personal history of other diseases of the digestive system; Z98.890 Other specified postprocedural states; Z79.899 Other long term (current) drug therapy

== ENCOUNTER 2018-10-25 08:42 | Inpatient (IN) | payer OTHER, MEDICARE ==
[~2018-10-25] VITALS: Ht 154.9 cm; Wt 76.5 kg
[2018-10-25 08:42] VITALS: BP 152/59
[2018-10-25 09:22] LABS: URINE BILIRUBIN NEGATIVE (Negative); URINE BLOOD 1+ (Negative); URINE CLARITY CLEAR; URINE COLOR YELLOW; URINE GLUCOSE-RANDOM* NEGATIVE (Negative); URINE KETONES NEGATIVE (Negative); URINE LEUKOCYTES-REFLEX NEGATIVE (Negative); URINE NITRITE-REFLEX NEGATIVE (Negative); URINE PROTEIN (DIPSTICK) TRACE (Negative); URINE UROBILINOGEN 0.2 E.U./dl (0.2-1.0)
[2018-10-25 09:32] LABS: BACTERIA-REFLEX 1-9 Few /HPF (None Seen); CASTS None Seen /LPF (None Seen); CRYSTALS None Seen /LPF (None Seen); SQUAMOUS 0-3 Few /LPF (0-3); URINE RBC 0-2 Rare /HPF (0-2); URINE WBC-REFLEX 0-5 Rare /HPF (0-5)
--- NOTE | 2018-10-25 12:46 | NUR ---
KEYSHA HOLDER (DAUGHTER) [phone]
[2018-10-25 12:56] VITALS: BP 141/53
[2018-10-25 13:47] LABS: HEMATOCRIT 34.5 % (37.0-47.0); HEMOGLOBIN 11.2 gm/dL (12.0-15.0); MCH 30.7 pg (26.0-34.0); MCHC 32.5 g/dL (28.0-37.0); MCV 94.3 fL (80.0-100.0); RBC 3.65 mil/uL (4.20-5.00); RDW 16.5 % (10.5-14.5); WBC 7.9 thou/uL (4.0-11.0)
[2018-10-25 13:54] VITALS: BP 141/53
[2018-10-25 13:55] LABS: CALCIUM 9.2 mg/dL (8.5-10.1); CREATININE 0.9 mg/dL (0.6-1.0); POTASSIUM 5.2 mmol/L (3.5-5.1)
[2018-10-25 14:33] VITALS: BP 147/62
--- NOTE | 2018-10-25 15:35 | NUR ---
Admitted from the Emergency room due to back pain, patient very drowsy but rousable- unable to obtain data from the patient as she falls back to sleep right away. Pt seen by Dr Hernandez at ER as per ER nurse's report. Falls risk- falls bundle in place. On room air. A+O. Vital signs stable. Medication Reconcilation not done at ER as per nurse as patient is drowsy. For Abdomen Ct Scan- patient taken down by Radiology staff via wheelchar.
[2018-10-25 16:06] VITALS: BP 126/41
[2018-10-25 19:24] VITALS: BP 127/59
--- NOTE | 2018-10-26 04:43 | NUR ---
ASSUMED CARE OF PT @1900. PT A&OX4. PT HAD A VERY RESTFUL NIGHT WITH NO C/O PAIN. PT AMBULATES TO THE BR WITH STANDBY ASSIST AND A ROLLING WALKER. FALL PREC IN PLACE. PT RINGS APPROP FOR ASSISTANCE TO THE BR. PT C/O OF A HEADACHE AND WAS GIVEN TYLENOL. PT HAS BEEN SLEEPING SINCE THEN. PT REFUSED AM V/S. WILL ATTEMPT AGAIN AT A LATER TIME. V/S WERE STABLE LAST NIGHT. CALL KANG WITHIN REACH
[2018-10-26 08:00] VITALS: BP 129/55
[2018-10-26] MEDS ORDERED: VALIUM5 MG PO (09:23)
[2018-10-26] MEDS ORDERED: LIDODERM1 EACH TRANSDERM (09:32)
[2018-10-26 11:05] VITALS: BP 129/55
--- NOTE | 2018-10-26 16:53 | NUR ---
PATIENT ALERT AND ORIENTED WITH AT BEDSIDE. PATIENT DISCHARGED HOME IN STABLE CONDITION WITH DISCHARGE ORDERS, INSTRUCTIONS, AND PRESCRIPTIONS AND ALL PERSONAL BELONGINGS. PATIENT DISCHARGED VIA WHEELCHAIR AND HOME WITH .
== END 2018-10-26 14:08 | disposition home or self-care (01) | DRG 552 ==
LOC: ER 08:42 → EROBS 12:54 → 4W 14:33
PROVIDERS: Emergency Medicine; ADMIT Family Medicine
DX: M62.830 Muscle spasm of back (principal); Z98.1 Arthrodesis status; M19.90 Unspecified osteoarthritis, unspecified site; I48.91 Unspecified atrial fibrillation; J44.9 Chronic obstructive pulmonary disease, unspecified; I50.9 Heart failure, unspecified; Z96.651 Presence of right artificial knee joint; K21.9 Gastro-esophageal reflux disease without esophagitis; G89.29 Other chronic pain; F32.9 Major depressive disorder, single episode, unspecified; R10.9 Unspecified abdominal pain; M06.9 Rheumatoid arthritis, unspecified; Z90.89 Acquired absence of other organs; Z90.49 Acquired absence of other specified parts of digestive tract; Z98.42 Cataract extraction status, left eye; Z98.41 Cataract extraction status, right eye; Z86.73 Personal history of transient ischemic attack (TIA), and cerebral infarction without residual deficits; Z99.81 Dependence on supplemental oxygen; Z87.891 Personal history of nicotine dependence; Z79.899 Other long term (current) drug therapy
CPT/HCPCS: 10040

== ENCOUNTER → 2018-11-20 | Outpatient (CLI) | payer OTHER, MEDICARE ==
[~2018-11-20] VITALS: Ht 154.9 cm; Wt 73.1 kg
[~2018-11-20] MED LIST changes: +LIDODERM1 EACH TRANSDERM
[2018-11-20 11:18] VITALS: BP 147/75
--- NOTE | 2018-11-20 11:52 | NUR ---
Pain Clinic Assessment: 1. History of Osteoarthritis: GENERALIZED History of Rheumatoid Arthritis: Not Applicable 2. Height: 5 ft. 1 in. 154.9 cm. Weight: 161.2 lb. oz. 73.120 kg. Patient's BMI: 30.5 3. Vital Signs: BP: 147/75 Pulse: 61 Resp: 20 Temp: 02 Sat: 100 ECG Mon: 4. Pain Intensity: 8-9 WHEN UP 5. Fall Risk: Dizziness: N Needs help standing or walking: Y Fallen in the last 3 months: Y Fall risk comments: FELL YESTERDAY- [facility] CAME AND GOT HER UP. SHE REFUSED TO GO TO ER 6. Patient on Blood Thinner: xarelto 7. History of Hypertension: Y 8. Opioid Therapy greater than 6 weeks: Y Opiate Contract Signed: 03/29/16 9. Risk Assessment Tool Provided: 0/low 10. Functional Assessment Tool: 55/70 11. Recreational Drug Use: Never Drug Type: Tobacco Use: Former Smoker Tobacco Type: Amount or Packs/day: How Many Years: Alcohol Use: Yes Frequency: Quant:
--- NOTE | 2018-11-27 16:52 | HPC ---
[facility] [address] [place] [address] PAIN MANAGEMENT CONSULTATION Name: LESLEY PANDYA Room #: REG NIKKI Sabrina#: [id number] Admission: 11/20/18 Attend Phys: Marcin Hernandez MD Discharge: Date of : 35 Report #: [id number] THIS REPORT FOR: //name// CC: Brandon Hernandez DATE OF SERVICE: 11/20/2018 REASON FOR VISIT: Followup visit for chronic low back pain with radiculopathy, management of intrathecal infusion pump. The patient returns to pain clinic today for refill of her intrathecal infusion pump. She has an additional widespread osteoarthritis. She was in the hospital Emergency Room with back spasms in early October. This was treated with benzodiazepine. We had cautious course with the combination of her opioids and benzodiazepine medications, but something needed to be done. Today, she is doing fairly well. She comes in her walker. She has had one fall since her last visit. Pain is at its usual level of intensity. PQRS REVIEW: 1. Generalized osteoarthritis involving multiple joints including hips, knees, and upper extremity. 2. BMI is 30.5. 3. Blood pressure 147/95, heart rate 61. 4. Pain intensity is 8-9/10 at its worst; it is a 3-4 today. 5. She has fallen and is a fall risk. She fell yesterday and had to have the medics can get her up. She refused to go to the Emergency Room. 6. She is on Xarelto. 7. History of hypertension, under treatment by primary physician 8. She is on an opioid agreement. 9. She has completed an opioid risk tool with a 0 score. 10. Functional assessment score is high at 55/70 suggesting high impact of her pain. 11. She denies tobacco, drinks alcohol on occasion. PHYSICAL EXAMINATION: VITAL SIGNS: As noted above. GENERAL: Pleasant, alert and oriented. She ambulates with a walker. Her gait is steady and she appears stable. CHEST: Clear. CARDIAC: Rhythm is regular. ABDOMEN: Pump is in the right lower quadrant, nontender. MUSCULOSKELETAL: She has pain across her low back and tenderness. Straight leg raising is mildly positive bilaterally, worse on the right. [facility] [address] [place] [address] PAIN MANAGEMENT CONSULTATION Name: LESLEY PANDYA Room #: REG [facility] GillianWilfrid.#: [id number] Admission: 11/20/18 Attend Phys: Marcin Hernandez MD Discharge: Date of : 35 Report #: [id number] IMPRESSION: 1. Chronic low back pain with spondylosis and radiculopathy. 2. Osteoarthritis. 3. Management of intrathecal infusion pump. 4. Management of high-risk breakthrough medication. I provided her with hydrocodone 10/325, 60 tablets, which lasts usually about a month. DESCRIPTION OF PROCEDURE: Refill and reprogramming of intrathecal infusion pump. Skin was prepped with ChloraPrep. Skin was anesthetized and a 22-gauge non-coring needle advanced into the intrathecal pump. Old medication removed and discarded. There were no discrepancies. Medication was discarded per protocol. The pump was then refilled with a combination of hydromorphone, bupivacaine, clonidine and refill programming session was performed. There were no changes. Her maximum daily dose including her PTM device allows her up to a maximum of 6.6 mg of hydromorphone, 4.4 of bupivacaine, and 22 mcg of clonidine per day. Her next scheduled refill is 01/13/2019. Her last prescription for hydrocodone was in August. I provided with hydrocodone /325, #60 tablets 1 tablet p.o. b.i.d. p.r.n. breakthrough pain. <ELECTRONICALLY SIGNED> By: Marcin Hernandez MD 11/27/18 1652 1525 1603 Marcin Hernandez MD /nt
== END | disposition home or self-care (01) ==
LOC: PAIN 06:53
DX: Z45.1 Encounter for adjustment and management of infusion pump (principal); M47.26 Other spondylosis with radiculopathy, lumbar region; G89.29 Other chronic pain; M19.90 Unspecified osteoarthritis, unspecified site; I10 Essential (primary) hypertension; Z87.891 Personal history of nicotine dependence; Z79.899 Other long term (current) drug therapy

== ENCOUNTER → 2018-12-29 | Outpatient (CLI) | payer OTHER, MEDICARE ==
[~2018-12-29] VITALS: Ht 154.9 cm; Wt 71.7 kg
--- NOTE | ~2018-12-29 | HPC ---
[facility] [place] [address] PAIN MANAGEMENT CONSULTATION Name: LESLEY PANDYA Room #: REG NIKKI Arellano.#: [id number] Admission: 12/29/18 Attend Phys: Marcin Hernandez MD Discharge: Date of : 35 Report #: [id number] THIS REPORT FOR: //name// CC: Brandon Hernandez DATE OF SERVICE: 12/29/2018 REASON FOR VISIT: Followup visit for epidural steroid injection. The patient is here today hoping for an injection to provide some relief of the pain in her low back and legs. She has noticed improvement following many of these injections in the past. Today, she scores her pain as an 8/10, worse with walking and standing. Pain radiates into both legs with tingling. She also has pain in her left knee. PQRS REVIEW: 1. Generalized osteoarthritis. 2. BMI of 29.9. 3. Vital signs: Blood pressure 141/54, heart rate 61. 4. Pain intensity 8. 5. She is a fall risk and uses a walker. Her gait seemed pretty stable today during her exam. 6. She is on Xarelto, but discontinued it for 3 days in anticipation of injection. 7. She is under treatment for hypertension. 8. Opioid agreement signed in 2017. She carefully safeguards medication. She is grateful for the pain relief it provides and denies side effects. 9. Opioid risk tool assessment score is 0 and her functional assessment score is 55/70. Pain dramatically affects her day-to-day activities. 10. She denies use of tobacco, drinks alcohol occasionally in social setting. IMPRESSION: Chronic low back pain with spondylosis and radiculopathy. RECOMMENDATION: Epidural steroid injection under fluoroscopic guidance. PROCEDURE: After informed consent, she was taken to fluoroscopic suite, placed prone, skin prepped with ChloraPrep. Skin anesthetized over the L3-L4 interspace. A 20-gauge Tuohy epidural needle was advanced into the epidural space to the left of midline. There was no blood or CSF aspirated. A 1 mL of Omnipaque was injected. Good spread of dye observed into the epidural space followed by 3 mL of 0.5% lidocaine mixed with 80 mg of triamcinolone. She tolerated the procedure well and was observed for 45 minutes and discharged. [address] [address] PAIN MANAGEMENT CONSULTATION Name: LESLEY PANDYA Room #: REG NIKKI Bennett#: [id number] Admission: 12/29/18 Attend Phys: Marcin Hernandez MD Discharge: Date of : 35 Report #: [id number] Followup visit is planned on an as needed basis. She has a scheduled appointment for her intrathecal pump refill. No oral medications were ordered today. By: 14 Marcin Hernandez MD /nt
[2018-12-29 12:43] VITALS: BP 141/54
--- NOTE | 2018-12-29 12:49 | NUR ---
Pain Clinic Assessment: 1. History of Osteoarthritis: GENERALIZED History of Rheumatoid Arthritis: Not Applicable 2. Height: 5 ft. 1 in. 154.9 cm. Weight: 158.0 lb. oz. 71.668 kg. Patient's BMI: 29.9 3. Vital Signs: BP: 141/54 Pulse: 61 Resp: 15 Temp: 02 Sat: 95 ECG Mon: 4. Pain Intensity: 8 WALKING 5. Fall Risk: Dizziness: N Needs help standing or walking: Y Fallen in the last 3 months: N Fall risk comments: WALKER 6. Patient on Blood Thinner: xarelto 7. History of Hypertension: Y 8. Opioid Therapy greater than 6 weeks: Y Opiate Contract Signed: 03/29/16 9. Risk Assessment Tool Provided: 0/low 10. Functional Assessment Tool: 55/70 11. Recreational Drug Use: Never Drug Type: Tobacco Use: Former Smoker Tobacco Type: Amount or Packs/day: How Many Years: Alcohol Use: Yes Frequency: Quant:
== END | disposition home or self-care (01) ==
LOC: PAIN 06:56
DX: M47.26 Other spondylosis with radiculopathy, lumbar region (principal); G89.29 Other chronic pain; I10 Essential (primary) hypertension; Z87.891 Personal history of nicotine dependence; Z79.899 Other long term (current) drug therapy; Z98.890 Other specified postprocedural states

== ENCOUNTER → 2019-02-13 | Outpatient (CLI) | payer OTHER, MEDICARE ==
--- NOTE | 2019-02-13 11:59 | NUR ---
Pain Clinic Assessment: 1. History of Osteoarthritis: GENERALIZED History of Rheumatoid Arthritis: Not Applicable 2. Height: ft. in. cm. Weight: lb. oz. kg. Patient's BMI: 3. Vital Signs: BP: Pulse: Resp: Temp: 02 Sat: ECG Mon: 4. Pain Intensity: 8 WALKING 5. Fall Risk: Dizziness: N Needs help standing or walking: Y Fallen in the last 3 months: N Fall risk comments: WALKER 6. Patient on Blood Thinner: xarelto 7. History of Hypertension: Y 8. Opioid Therapy greater than 6 weeks: Y Opiate Contract Signed: 03/29/16 9. Risk Assessment Tool Provided: 0/low 10. Functional Assessment Tool: 55/70 11. Recreational Drug Use: Never Drug Type: Tobacco Use: Former Smoker Tobacco Type: Amount or Packs/day: How Many Years: Alcohol Use: Yes Frequency: Quant:
--- NOTE | 2019-02-16 12:21 | HPC ---
[facility] [place] [address] PAIN MANAGEMENT CONSULTATION Name: LESLEY PANDYA Room #: REG NIKKI Arellano.#: [id number] Admission: 02/13/19 Attend Phys: Marcin Hernandez MD Discharge: Date of : 35 Report #: [id number] THIS REPORT FOR: //name// CC: Brandon Hernandez Followup visit for chronic intractable low back pain with spondylosis and radiculopathy, osteoarthritis, management of intrathecal infusion pump. The patient returns to pain clinic today late for refill of her intrathecal infusion pump. She had been in and out of the hospital. She missed a refill date. Her pump is near empty. In fact interrogating the pump, we find that her alarm was activated around 02/12/2019. She has not experienced any withdrawal. I am assuming that the pump is continuing to provide some medication with 2 mL puffer. She reports that her pain management is adequate. She wants no adjustments in her intrathecal pump. PQRS REVIEW: 1. Multiple joint osteoarthritis involving hips, knees and upper extremity. 2. BMI is 30.5. 3. Blood pressure is 135/85. 4. Pain score is 8. 5. No falls recently. She uses a walker. 6. The patient is on Xarelto. 7. History of hypertension, treated by Dr. Nascimento. 8. She is on an opioid agreement and is considered at low risk for addiction by the opioid risk tool. 9. Functional assessment score 55. 10. She denies use of tobacco, but occasionally has alcohol, is cautious in her use. PHYSICAL EXAMINATION: VITAL SIGNS: As noted. Pump is in the right lower quadrant, nontender. Her gait is antalgic. She can move with her walker. She does seem a bit unstable. Tenderness across her low back. Bilateral mild straight leg raising, worse on the right than the left. IMPRESSION: 1. Chronic intractable low back pain with spondylosis and radiculopathy. 2. Osteoarthritis, multiple joints. 3. Chronic management with intrathecal infusion pump and management of high risk medications through an opioid agreement. We use hydrocodone as breakthrough and she uses small amounts. [facility] [address] [place] [address] PAIN MANAGEMENT CONSULTATION Name: LESLEY PANDYA Room #: REG RANJEETOfelia Bennett#: [id number] Admission: 02/13/19 Attend Phys: Marcin Hernandez MD Discharge: Date of : 35 Report #: [id number] PROCEDURE: Refill and reprogramming of intrathecal infusion pump. She was taken to the fluoroscopic suite for the procedure due to the fact that her pump was completely dry. I want to ensure that we were in the pump since no volume could be aspirated. The skin was prepped and a 22-gauge non-coring needle advanced in the pump. Old medication removed and discarded per protocol. In fact, there was no medication, only a small amount of liquid was seen in the very starting portion of the tube to indicate. I felt a good loss of resistance through the center of the pump diaphragm. I then carefully aspirated every 5 mL and every 10 mL. The entire volume back to confirm that we were in the pump since there was no confirmatory aspirant. I injected it. The total volume in the pump and reprogramming session of probe was performed. A copy of the information was provided to the patient. Her NIGEL is now 35 months. She will remain on hydromorphone 6.6, bupivacaine 4.4 and clonidine 22.1 on a daily basis. She does have a PTM device, which she can utilize 6 times daily. She was discharged in good condition after checking her pump information. Follow up as needed. <ELECTRONICALLY SIGNED> By: Marcin Hernandez MD 02/16/19 1221 0932 1047 Marcin Hernandez MD /nt
== END | disposition home or self-care (01) ==
LOC: PAIN 01-22 06:52
DX: Z45.1 Encounter for adjustment and management of infusion pump (principal); G89.29 Other chronic pain; M47.26 Other spondylosis with radiculopathy, lumbar region; M19.90 Unspecified osteoarthritis, unspecified site; I50.9 Heart failure, unspecified; Z98.890 Other specified postprocedural states; Z79.899 Other long term (current) drug therapy; Z79.891 Long term (current) use of opiate analgesic; Z79.01 Long term (current) use of anticoagulants; Z87.891 Personal history of nicotine dependence; Z87.19 Personal history of other diseases of the digestive system

== ENCOUNTER 2019-03-21 13:28 | Inpatient (IN) | payer OTHER, MEDICARE ==
[~2019-03-21] VITALS: Ht 154.9 cm; Wt 72.6 kg
[2019-03-21 13:29] VITALS: BP 141/54
[2019-03-21 14:23] LABS: ABSOLUTE NEUTROPHILS 3.2 thou/uL (1.4-8.2); BASOPHILS 1.3 % (0.0-2.0); EOSINOPHILS 8.4 % (0.0-3.0); HEMATOCRIT 30.7 % (37.0-47.0); HEMOGLOBIN 9.9 gm/dL (12.0-15.0); LYMPHOCYTES 22.2 % (24.0-44.0); MCH 30.9 pg (26.0-34.0); MCHC 32.3 g/dL (28.0-37.0); MCV 95.6 fL (80.0-100.0); MONOCYTES 10.2 % (1.0-8.0); PLATELET COUNT 252 thou/uL (150-400); POLYS 57.9 % (36.0-66.0); RBC 3.21 mil/uL (4.20-5.00); RDW 15.5 % (10.5-14.5); WBC 5.5 thou/uL (4.0-11.0)
[2019-03-21 14:41] LABS: ANION GAP < 0 mmol/L (7-16); BUN 20 mg/dL (7-18); CALCIUM 8.7 mg/dL (8.5-10.1); CHLORIDE 102 mmol/L (98-107); CO2 35 mmol/L (21-32); GLUCOSE 97 mg/dL (74-106); POTASSIUM 4.6 mmol/L (3.5-5.1); SODIUM 136 mmol/L (136-145)
[2019-03-21 14:45] LABS: ALBUMIN 3.3 g/dL (3.4-5.0); LIPASE 24 U/L (73-393); SGOT 15 U/L (15-37); SGPT 13 U/L (30-65); TOTAL BILIRUBIN 0.3 mg/dL (<0.1-1.0)
[2019-03-21 17:55] VITALS: BP 155/51
[2019-03-21 18:42] VITALS: BP 135/66
--- NOTE | 2019-03-21 20:29 | NUR ---
Received report from ER at 1835. Transferred to room safely, vital signs taken. With pain pump at right abdomen. Kept safe and comfortable. On clear liquids. Report given to rn night nurse, to start admission protocol on patient.
[2019-03-21 20:30] VITALS: BP 138/59
--- NOTE | 2019-03-21 23:41 | NUR ---
PT WAS ADMITTED TO THE UNIT FROM ER AT APPROX 1855 IN A STABLE CONDITION.ADMISSION HX,EDUCATION AND ASSESSMENT COMPLETED.MED REC DONE BY AM NURSE.PT RECEIVED MAG CITRATE.PT UP TO BSC WITH ASSIST X1.PT C/O PAIN ON HER RLQ,MANAGED WITH MED.NO BM YET.PT RESTING ON HER BED AT THIS TIME.FALL PRECAUTIONS IN PLACE,CALL LIGHT WITHIN REACH.
[2019-03-22 03:00] VITALS: BP 136/52
[2019-03-22 03:38] LABS: URINE BILIRUBIN NEGATIVE (Negative); URINE BLOOD TRACE (Negative); URINE CLARITY CLEAR; URINE COLOR YELLOW; URINE GLUCOSE-RANDOM* NEGATIVE (Negative); URINE KETONES NEGATIVE (Negative); URINE LEUKOCYTES-REFLEX NEGATIVE (Negative); URINE NITRITE-REFLEX NEGATIVE (Negative); URINE PROTEIN (DIPSTICK) NEGATIVE (Negative); URINE UROBILINOGEN 0.2 E.U./dl (0.2-1.0)
[2019-03-22 04:52] LABS: HEMATOCRIT 31.6 % (37.0-47.0); HEMOGLOBIN 10.2 gm/dL (12.0-15.0); MCHC 32.3 g/dL (28.0-37.0); RBC 3.29 mil/uL (4.20-5.00); RDW 15.6 % (10.5-14.5); WBC 6.8 thou/uL (4.0-11.0)
[2019-03-22 05:08] LABS: CALCIUM 9.2 mg/dL (8.5-10.1); CREATININE 0.8 mg/dL (0.6-1.0); POTASSIUM 4.6 mmol/L (3.5-5.1)
[2019-03-22 08:13] VITALS: BP 124/60
[2019-03-22 10:47] VITALS: BP 124/60
--- NOTE | 2019-03-22 13:40 | NUR ---
Assumed care of pt at 0700. Pt a&ox4. Denies pain. Able to have a bowel movement. Provider saw pt in am. States pt ok to discharge to home. Call light within reach. Fall precautions in place.
== END 2019-03-22 11:00 | disposition home or self-care (01) | DRG 392 ==
LOC: ER 13:28 → EROBS 17:46 → 4S 18:59
PROVIDERS: Physician Assistant; ADMIT Hospitalist
DX: K59.00 Constipation, unspecified (principal); I50.9 Heart failure, unspecified; I48.91 Unspecified atrial fibrillation; J44.9 Chronic obstructive pulmonary disease, unspecified; M19.90 Unspecified osteoarthritis, unspecified site; K21.9 Gastro-esophageal reflux disease without esophagitis; K44.9 Diaphragmatic hernia without obstruction or gangrene; M54.9 Dorsalgia, unspecified; G89.29 Other chronic pain; F32.9 Major depressive disorder, single episode, unspecified; Z90.49 Acquired absence of other specified parts of digestive tract; Z79.01 Long term (current) use of anticoagulants; Z90.89 Acquired absence of other organs; Z98.1 Arthrodesis status; Z98.42 Cataract extraction status, left eye; Z98.41 Cataract extraction status, right eye; Z89.511 Acquired absence of right leg below knee; Z99.81 Dependence on supplemental oxygen; Z79.899 Other long term (current) drug therapy; Z87.891 Personal history of nicotine dependence
CPT/HCPCS: 10100

== ENCOUNTER → 2019-04-13 | Outpatient (CLI) | payer OTHER, MEDICARE ==
[~2019-04-13] VITALS: Ht 154.9 cm; Wt 77.7 kg
[2019-04-13 15:30] VITALS: BP 121/77
--- NOTE | 2019-04-13 15:45 | NUR ---
Pain Clinic Assessment: 1. History of Osteoarthritis: GENERALIZED History of Rheumatoid Arthritis: Not Applicable 2. Height: 5 ft. 1 in. 154.9 cm. Weight: 171.2 lb. oz. 77.656 kg. Patient's BMI: 32.4 3. Vital Signs: BP: 121/77 Pulse: 74 Resp: 20 Temp: 02 Sat: 99 ECG Mon: 4. Pain Intensity: 7-8 5. Fall Risk: Dizziness: N Needs help standing or walking: Y Fallen in the last 3 months: N Fall risk comments: WALKER 6. Patient on Blood Thinner: xarelto 7. History of Hypertension: Y 8. Opioid Therapy greater than 6 weeks: Y Opiate Contract Signed: 03/29/16 9. Risk Assessment Tool Provided: 0/low 10. Functional Assessment Tool: 55/70 11. Recreational Drug Use: Never Drug Type: Tobacco Use: Former Smoker Tobacco Type: Amount or Packs/day: How Many Years: Alcohol Use: Yes Frequency: Quant:
--- NOTE | 2019-04-16 14:31 | HPC ---
[facility] [place] [address] PAIN MANAGEMENT CONSULTATION Name: LESLEY PANDYA Room #: REG NIKKI Arellano.#: [id number] Admission: 04/13/19 Attend Phys: Marcin Hernandez MD Discharge: Date of : 35 Report #: [id number] THIS REPORT FOR: cc: Brandon Nascimento MD, Neal A. MD Morgan,Marcin Sanz MD ~ THIS REPORT FOR: //name// CC: Brandon Hernandez DATE OF SERVICE: 04/13/2019 Followup visit for chronic intractable pain, management of intrathecal infusion pump. The patient returns to pain clinic today and was quite patient waiting. We had a long afternoon and I did not see her for about an hour. She was quite pleasant. She reports that her pain score is about a 6/10 and this is stable for her. PQRS: She has a history of generalized osteoarthritis involving multiple joints. Her BMI is stable at 32.4. Pain intensity is 7-8/10 and she is a fall risk, using a walker. She is on Xarelto, need to be cautious about any falls. She is treated for hypertension. I provided with a small amount of opioids, but she has really limited dose for the most part of the last several months. She is at low risk for addiction by the ORT. Her functional assessment score is high at 55/70. This would suggest significant impact of her pain on day-to-day activities and interactions with others. She denies tobacco, but still uses a little bit of alcohol in the social setting with her . PHYSICAL EXAMINATION: VITAL SIGNS: Blood pressure 121/77, heart rate 74, respirations 20, O2 sat 99. HEENT: Pupils are equal, round, reactive to light. EOMs are intact. Mucous membranes are moist. NECK: Supple. CHEST: Clear. CARDIAC: Rhythm regular. MUSCULOSKELETAL: She moves independently from sitting to standing position, walks with antalgic gait. She has some difficulty getting up into the bed. ABDOMEN: Examination of the abdomen reveals pump in the right lower quadrant and nontender. IMPRESSION: 1. Chronic intractable low back pain with spondylosis and radiculopathy. [facility] [address] [place] [address] PAIN MANAGEMENT CONSULTATION Name: LESLEY PANDYA Room #: REG [facility].#: [id number] Admission: 04/13/19 Attend Phys: Marcin Hernandez MD Discharge: Date of : 35 Report #: [id number] 2. Multi-joint osteoarthritis. 3. Management of intrathecal infusion pump. PROCEDURE: Refill and reprogramming. After informed consent, the skin was prepped with ChloraPrep and a 22-gauge non-coring needle advanced without local anesthetic into the pump upon the first attempt. Old medication was removed and discarded per protocol. The pump was then refilled with hydromorphone, bupivacaine and clonidine. Reprogramming session performed. It was checked by myself and the nurse. Her daily dose will be hydromorphone 6.6, bupivacaine 4.4 and clonidine 22. She does have a PTM device which allows her additional doses up to 6 per 24 hours and she does use them. She activated her PTM 19 times since 02/13, states she does not use it all that often. She is scheduled for a refill of her intrathecal pump in 2-3 months. No medications were ordered at today's visit. Followup visit planned in June. <ELECTRONICALLY SIGNED> By: Marcin Hernandez MD 04/16/19 1431 [id number] 0000 Marcin Hernandez MD /nt
== END | disposition home or self-care (01) ==
LOC: PAIN 06:47
DX: Z45.1 Encounter for adjustment and management of infusion pump (principal); G89.29 Other chronic pain; M47.22 Other spondylosis with radiculopathy, cervical region; M19.90 Unspecified osteoarthritis, unspecified site; Z98.890 Other specified postprocedural states; Z79.891 Long term (current) use of opiate analgesic; Z79.899 Other long term (current) drug therapy

== ENCOUNTER 2019-04-30 15:17 | Inpatient (IN) | payer OTHER, MEDICARE ==
[~2019-04-30] VITALS: Ht 154.9 cm; Wt 72.6 kg
[~2019-04-30 15:17] MED LIST changes: +BYSTOLIC10 MG PO; +HYDROMORPHONE INTRATHECA; +[UNRECOGNIZED DRUG - OTHER] INTRATHECA
[2019-04-30 16:55] VITALS: BP 114/49
--- NOTE | 2019-04-30 20:25 | NUR ---
ASSUMMED PT CARE AT APPROXIMATELY 1700. PT A&O X4. ASSESSMENT CHARTED. FALL PRECAUTIONS IN PLACE. PT DENIES HAVING CHEST PAIN. PT DENIES HAVING SOB. PT DENIED HAVING ACUTE PAIN. PT STATED SHE HAD OCCASIONAL CHRONIC LOWER BACK PAIN. PT IN ISOLATION CONTACT/A[place]NE/ENHANCED FOR POSSIBLE COVID-19. PT AND PT'S FAMILY EDUCATED ABOUT POC. PT AND PT'S FAMILY STATED UNDERSTANDING. PT STATED SHE WAS UNSURE WHY SHE WAS HERE BEING TESTED. INFORMED DR. DELGADO OF PT NOT UNDERSTANDING WHY SHE WAS HERE. DR. DELGADO STATED UNDERSTANDING AND STATED "SHE'S PROBABLY JUST TIERD." INFECTIOUS DISEASE RN STATED TO COLLECT NASAL, THROAT, AND SPEUTUM CULTURES. CULTURES OBTAINED. PT STATED SHE HAD NOT BEEN COUGHING UP A LOT OF SPEUTUM. INFECTIOUS DISEASE RN STATED TO ASK PT THE CDC QUESTIONARE AND TO SEND THE QUESTIONARE C LABS. QUESTIONARE AND CULTURES DELIEVERED TO LAB. PT REQUESTING TO NOT BE STUCK IN CERTAIN PLACES AND TO COMPLETE ADL'S WITHOUT INTERRUPTION. THIS IS WHY FLUIDS, ABX, AND BLOOD LABS HAVE NOT BEEN STARTED/COLLECTED. VITAL SIGNS STABLE. PT AFEBRILE. PT DENIES HAVING FURTHER CONCERNS. PT'S COMPUTER IN THE ROOM WAS NOT WORKING. TO COMPLETE ADMISSION, I CALLED ROSE MUSTAFA ON THE FLOOR TO ENTER THE ADMISSION INTO THE COMPUTER AT THE NURSING STATION WHILE I DICTATED THE ADMISSION AND PT'S ADMISSION VITAL SIGNS.
[2019-04-30 21:25] VITALS: BP 97/46
[2019-04-30 23:40] VITALS: BP 124/52
[2019-05-01 00:24] LABS: HEMATOCRIT 29.7 % (37.0-47.0); HEMOGLOBIN 9.6 gm/dL (12.0-15.0); MCH 31.2 pg (26.0-34.0); MCHC 32.5 g/dL (28.0-37.0); MCV 96.1 fL (80.0-100.0); RBC 3.09 mil/uL (4.20-5.00); RDW 15.8 % (10.5-14.5); WBC 3.8 thou/uL (4.0-11.0)
[2019-05-01 00:36] LABS: ALBUMIN 3.3 g/dL (3.4-5.0); CREATININE 1.8 mg/dL (0.6-1.0); TOTAL BILIRUBIN 0.3 mg/dL (<0.1-1.0); TOTAL PROTEIN 6.7 g/dL (6.4-8.2)
[2019-05-01 00:46] LABS: URINE BILIRUBIN NEGATIVE (Negative); URINE BLOOD 1+ (Negative); URINE CLARITY CLEAR; URINE COLOR YELLOW; URINE GLUCOSE-RANDOM* NEGATIVE (Negative); URINE KETONES NEGATIVE (Negative); URINE LEUKOCYTES-REFLEX NEGATIVE (Negative); URINE NITRITE-REFLEX NEGATIVE (Negative); URINE PROTEIN (DIPSTICK) NEGATIVE (Negative); URINE UROBILINOGEN 0.2 E.U./dl (0.2-1.0)
[2019-05-01 00:54] LABS: CASTS None Seen /LPF (None Seen); MUCUS 0-3 Light strn/LPF (None Seen); SQUAMOUS 0-3 Few /LPF (0-3); URINE RBC 0-2 Rare /HPF (0-2); URINE WBC-REFLEX None Seen /HPF (0-5)
[2019-05-01 00:55] LABS: BACTERIA-REFLEX None Seen /HPF (None Seen); CRYSTALS None Seen /LPF (None Seen); TRANSITIONAL EPITHEL CELL 0-3 Few /LPF (None Seen)
[2019-05-01 04:15] VITALS: BP 142/68
--- NOTE | 2019-05-01 05:30 | NUR ---
ASSUMED PT CARE AROUND 1900. PT IN ROOM EATING. PT HAD NO C/O PAIN, SOA, N/V/D. PATIENT STARTED ON ANTIBIOTICS, LABS COLLECTED AND SENT TO LAB. ASSESSMENTS CHARTED. PT RESTED THRU NIGHT ONLY AWAKENED TO PROVIDE CARES ACCORDING TO ORDERS. EDUCATED PATIENT ON WHY CARES ARE BEING PROVIDED. PT EXPRESSED UNDERSTANDING. PT OXYGEN SATURATION LEVEL DROPPED TO 88% PT PLACED ON 2-3L OF OXYGEN AND LEVEL INCREASED TO 98-100%. PT ABLE TO WALK WITH WALKER TO BATHROOM. WILL CONTINUE TO CLOSELY MONITOR.
[2019-05-01 08:30] VITALS: BP 115/47
--- NOTE | 2019-05-01 10:43 | NUR ---
PATIENT UP TO THE BATHROOM WITH ASSIST X1 AND WALKER. SLOW MOVING IN THE AM AFTER THE NIGHT IS HER TYPICAL. GAIT STEADY. VOIDED ADEQUATELY, CLEAR YELLOW UNINE. SAT ON THE EDGE ON THE BED AND ATE BREAKFAST, 80%. TOOK MORNING MEDS. GAVE TYLENOL FOR BODY ACHES. BACK TO BED, ADEQUATE STRENGTH. REDRESSED PIV DUE TO LEAKING. PIV REMAINS INTACT. PATIENT O2 CHECK ON ROOM AIR, 88%, 99% ON 2L. NO RESP DISTRESS NOTED. COUGHING UP CLEAR/PALE YELLOW SPUTUM. SPOKE TO WHO IS UPSTAIRS ON THE 3RD FLOOR. SEE REASSESSMENT FOR DETAILS. CONTINUE TO MONITOR.
--- NOTE | 2019-05-01 13:28 | NUR ---
Chart reviewed and case discussed with the care team. Pt is in enhanced isolation for r/o covid 19. Tests are pending. Pt's spouse is also here on another floor. Space And Storage Clerk spoke with the pt's dtr Kori. Cm role introduced and assessment completed with her via phone. The pt lives in indep living apt with her spouse at [facility]. She uses a rollator walker and is normally indep with transfers, gait and basic adl's. They have 2/3 meals in the dinning room and dinner in their apt. The pt has home o2 per [place] and uses 2Lnc PRN d/t COPD. Nursing notes she is sba for transfers and seems to move slower in the mornings. The pt has not had any hh needs in the past 6mos although her spouse has therapy coming in 2xwkly. No cm interventions indicated at this time. Will follow along for possible therapy evals/or hh referral at [facility].
[2019-05-01 15:27] VITALS: BP 109/49
--- NOTE | 2019-05-01 16:38 | NUR ---
PT CARE ASSUMED APPROX 0900. ASSESSMENT CHARTED. PT DENIES SOA. REPORTS ADEQUATE PAIN MANAGEMENT OF HEADACHE. VSS. UP WITH MIN ASSIST AND WALKER. MAINTAINING ENHANCED ISOLATION PRECAUTIONS. PT DENIES QUESTIONS OR CONCERNS REGARDING POC. PROGRAM DIRECTOR/MORNING SHOW HOST AND ADMINISTRATION HAD LENGTHY CONVERSATION WITH PT'S DAUGHTER THIS SHIFT REGARDING HER CONCERNS FOR TESTING AND PROTOCOLS. PT'S DAUGHTER ALSO RECEIVED CLINICAL UPDATE. AFTER DISCUSSION SHE DENIED QUESTIONS AND/OR CONCERNS. NO DISTRESS NOTED.
[2019-05-01 20:10] VITALS: BP 124/57
--- NOTE | 2019-05-02 04:30 | NUR ---
ASSUMED PT CARE AT 1900. PT IS ALERT AND ORIENTED. NO SIGN OF DISTRESS NOTED. PT IS ON ISOLATION. NO FAMILY AT BEDSIDE. PT IS STABLE, PT COMPLIANS OF A HEADACHE. TYLENOL ADMINISTERED. NO FEVER NOTED. ASSESSMENT COMPLETED AND DOCUMENTED. OXYGEN ON. SCHEDULED MEDS ADMINISTERED TO PT. CONTINUE SUPPORTIV CARE AND MONITOR PT.
[2019-05-02 04:44] LABS: HEMATOCRIT 27.8 % (37.0-47.0); HEMOGLOBIN 8.9 gm/dL (12.0-15.0); RBC 2.87 mil/uL (4.20-5.00); RDW 15.7 % (10.5-14.5); WBC 3.6 thou/uL (4.0-11.0)
[2019-05-02 04:54] LABS: CALCIUM 8.3 mg/dL (8.5-10.1); POTASSIUM 4.3 mmol/L (3.5-5.1)
[2019-05-02 04:55] LABS: CREATININE 0.8 mg/dL (0.6-1.0)
[2019-05-02 06:10] VITALS: BP 110/48
[2019-05-02 08:30] VITALS: BP 114/59
[2019-05-02] MEDS ORDERED: CEFDINIR300 MG PO (08:37)
[2019-05-02 08:38] VITALS: BP 114/59
[2019-05-02] MEDS ORDERED: AZITHROMYCIN 2250 MG PO (08:38)
--- NOTE | 2019-05-02 09:34 | NUR ---
REPORT RECEIVED FROM ROSE JEAN. PT ASLEEP AT CHANGE OF SHIFT. [address] DELGADO, REVIEWED POC, PT AWARE OF PLAN FOR DISCHARGE LATER THIS AFTERNOON, VERBALIZED UNDERSTANDING, MEDS GIVEN, VSS, PT EATING MEAL TRAY, UP TO BEDSIDE COMMODE WITH ASSIST. PCXR DONE. SPOKE WITH DAUGHTER, ROSALINA. LEFT MESSAGE WITH DAUGHTER, KEYSHA. WILL MONITOR.
[2019-05-02 11:59] VITALS: BP 132/61
--- NOTE | 2019-05-02 12:44 | HC ---
[facility] [place] [address] CONSULTATION Name: LESLEY PANDYA Room #: 200-I ADM IN M.R.#: [id number] Admission: 04/30/19 Attend Phys: Brandon Nascimento MD Discharge: Date of : 35 Report #: [id number] THIS REPORT FOR: cc: Brandon Nascimento MD, Neal A. MD Geha, Daniel J. MD ~ CC: Brandon Nascimento DATE OF SERVICE: 04/30/2019 INFECTIOUS DISEASE CONSULTATION REASON FOR CONSULTATION: I was asked to evaluate concerning community-acquired pneumonia in the setting of COPD and congestive heart failure. HISTORY OF PRESENT ILLNESS: The patient is an 83 year old with underlying history of COPD, atrial fibrillation and a compensated congestive heart failure. She was hospitalized last month for abdominal pain. She was in for 1 day, found to have constipation, which was corrected. She now notes a 2-day history of progressive shortness of breath associated with cough, occasional yellow sputum production. No hemoptysis. No pleuritic chest pain. Denies any fever, chills or sweats. She lives in assisted living with her who is immunosuppressed. He has developed similar symptoms. They have had no travel. There children visit them, but review of their history notes no recent respiratory tract infections or recent travel outside the [place]. They have been vaccinated for influenza. She reports no headache, chest pain, nausea, vomiting or diarrhea. No dysuria or frequency. She has chronic low back and arthritis pain. ALLERGIES: None known. MEDICATIONS: As noted on her MAR, now on azithromycin and ceftriaxone. Previously on Xarelto, Lasix, potassium, Neurontin, Bystolic, Protonix, Cymbalta and Restasis. PAST MEDICAL AND SURGICAL HISTORY: Tonsillectomy, cervical fusion, low back surgery, colon resection for polyps, right tib-fib intramedullary nailing, bilateral cataract surgery, right total knee arthroplasty, anemia, right rotator cuff repair, intrathecal pump, gastroesophageal reflux, degenerative joint disease, chronic pain syndrome, cholecystectomy, TIA, depression, incisional herniorrhaphy, atrial fibrillation, hiatal hernia, COPD on 2 liters of oxygen per nasal cannula as needed, congestive heart failure. FAMILY HISTORY: No tuberculosis. SOCIAL HISTORY: Past smoker. Drinks on occasion. No tuberculosis exposure. [address] [address] CONSULTATION Name: LESLEY PANDYA Room #: 200-I [facility] IN M.R.#: [id number] Admission: 04/30/19 Attend Phys: Brandon Nascimento MD Discharge: Date of : 35 Report #: [id number] REVIEW OF SYSTEMS: 14-point review was negative other than what has been described above. PHYSICAL EXAMINATION: VITAL SIGNS: Afebrile and hemodynamically stable. GENERAL: She was alert and cooperative and pleasant, in no acute distress. She was on room air with adequate oxygen saturation. SKIN: Without rash or decubitus. No palpable adenopathy. She was of normal weight. HEENT: Eyes without scleral icterus or conjunctivitis. Mouth without mucositis. NECK: Supple with no thyromegaly or mass. LUNGS: Crackles heard in the bases bilaterally. No consolidation or rub. HEART: Irregular without murmur, gallop or rub. ABDOMEN: Soft, nontender, no hepatosplenomegaly or mass appreciated. GENITAL RECTAL: Not performed. BACK: Spine was nontender to percussion. No CVA tenderness. EXTREMITIES: Without clubbing, cyanosis or edema. NEUROLOGIC: Cranial nerves intact with strength in the upper and lower extremities, symmetric and within normal limits. Sensation to touch in the upper and lower extremities was within normal limits and symmetric. Mood was without anxiety or depression. LABORATORY AND DIAGNOSTIC DATA: Laboratory and chest x-ray are pending. IMPRESSION: An 83 year old with community-acquired pneumonia in the setting of chronic obstructive pulmonary disease, cardiomyopathy and atrial fibrillation along with degenerative arthritis and chronic pain syndrome. We will evaluate for both bacterial and viral etiologies. Currently, experiencing epidemic of coronavirus and influenza in our region. RECOMMENDATIONS: We will continue evaluation for etiology. Await chest x-ray and initial blood studies. Control atrial fibrillation. Serial laboratory studies and chest x-ray. Continue with broad antibiotic coverage, pending studies. I have discussed with nursing staff and patient's family. We will discuss with [facility] regarding coronavirus testing. <ELECTRONICALLY SIGNED> By: Shashank Lim MD 05/02/19 1244 [id number] Shashank Lim MD /nt
--- NOTE | 2019-05-02 16:37 | NUR ---
IV REMOVED, TELE REMOVED, DISCHARGE INSTRUCTIONS REVIEWED, PT'S DAUGHTER AND PT VERBALIZED UNDERSTANDING, PT LEFT WITH DAUGHTER AND TOOK ALL BELONGINGS.
== END 2019-05-02 16:23 | disposition home or self-care (01) | DRG 190 ==
LOC: 2N 15:17
PROVIDERS: Specialist; ADMIT Family Medicine
DX: J44.0 Chronic obstructive pulmonary disease with (acute) lower respiratory infection (principal); J18.9 Pneumonia, unspecified organism; I48.20 Chronic atrial fibrillation, unspecified; I42.9 Cardiomyopathy, unspecified; I13.0 Hypertensive heart and chronic kidney disease with heart failure and stage 1 through stage 4 chronic kidney disease, or unspecified chronic kidney disease; R09.02 Hypoxemia; G89.4 Chronic pain syndrome; Z96.651 Presence of right artificial knee joint; K21.9 Gastro-esophageal reflux disease without esophagitis; M19.90 Unspecified osteoarthritis, unspecified site; F32.9 Major depressive disorder, single episode, unspecified; F41.9 Anxiety disorder, unspecified; I50.9 Heart failure, unspecified; D63.8 Anemia in other chronic diseases classified elsewhere; N18.9 Chronic kidney disease, unspecified; Z90.49 Acquired absence of other specified parts of digestive tract; Z98.42 Cataract extraction status, left eye; Z98.41 Cataract extraction status, right eye; Z86.73 Personal history of transient ischemic attack (TIA), and cerebral infarction without residual deficits; Z87.891 Personal history of nicotine dependence
CPT/HCPCS: 10081

== ENCOUNTER 2019-06-06 16:47 | Inpatient (IN) | payer OTHER, MEDICARE ==
[~2019-06-06] VITALS: Ht 152.4 cm; Wt 69.9 kg
--- NOTE | ~2019-06-06 | HC ---
[facility] [place] [address] CONSULTATION Name: LESLEY PANDYA Room #: 447-P ADM IN M.R.#: [id number] Admission: 06/06/19 Attend Phys: Josh Zepeda MD Discharge: Date of : 35 Report #: [id number] THIS REPORT FOR: cc: Brandon Nascimento MD, Neal A. MD Thesing, John A. MD ~ CC: Josh Nascimento MD REASON FOR CONSULTATION: The patient is an 83-year-old woman with complaints of right lateral mid abdominal pain. HISTORY OF PRESENT ILLNESS: The patient known to me from previous evaluations and interventions. She has a longstanding history of chronic abdominal pain. As a matter of fact, going through the radiology file, the patient has had 16 CTs of the abdomen and pelvis since 2004. I did not read all the reports, but the most recent ones were all nondiagnostic. She does have a history of multiple abdominal surgeries including what sounds like a colon resection for diverticular disease many years ago at ____ [facility]. She has also had a cholecystectomy and appendectomy. She had complaints of left lower quadrant abdominal pain on her most recent admission to [facility]. CT at that time was nondiagnostic. She reports that 3 days ago she started with what she called a new pain. It is a deep throbbing pain in the right mid abdomen in the vicinity of her pain pump. It is not high in the subcostal area. It is not low deep in the pelvis. The pain at times is quite intense. She has not had any nausea or vomiting. She has not had any fever or chills. She presented to [facility] and labs were obtained, which revealed a white count of 5.5, hemoglobin 10.1 and platelet count of 351,000. Electrolytes unremarkable. Creatinine 1.2, BUN of 24. AST and ALT are normal, alkaline phosphatase slightly elevated at 135, bilirubin normal at 0.3, albumin 3.8, lipase of 32. Again, she had a CT of the abdomen and pelvis. This was done with IV contrast. She does have mild bile duct dilation which has been noted in the past and was consistent with previous cholecystectomy. Gallbladder has been removed. No adenopathy or fluid was seen. She does have spondylosis and scoliosis. There were no findings of obstruction. There is stool within the colon. The patient does report she has problems with constipation. She does use some MiraLax and also does use Senokot. She reports her last stool was yesterday. She does report that that stool was small in size. She has not had any rectal bleeding. It is noted she does have chronic back pain and has had a chronic hydromorphone pump and she also has hydromorphone which she takes at home as well for severe [facility] [address] [place] [address] CONSULTATION Name: LESLEY PANDYA Room #: 447-P ADM IN M.R.#: [id number] Admission: 06/06/19 Attend Phys: Josh Zepeda MD Discharge: Date of : 35 Report #: [id number] pain. PAST MEDICAL HISTORY: Chronic back pain with pain pump; degenerative joint disease; scoliosis; spondylosis; depression; atrial fibrillation, on anticoagulation; COPD, former cigarette smoker, quit 30 years ago. She does have chronic lung disease and requires 2 liters of oxygen at night. She has also been treated for congestive heart failure in the past. Reflux disease. PAST SURGICAL HISTORY: Tonsillectomy, cervical fusion, back fusion, colon resection, right tib-fib fracture repair, bilateral cataract extractions. Right total knee, I believe, also a left total knee, right rotator cuff surgery, pain pump placement, degenerative joint disease, cholecystectomy, incisional hernia repair. MEDICATIONS: Potassium chloride 40 mEq daily, gabapentin 100 mg daily, Xarelto 20 mg daily, pantoprazole 40 mg daily, Cymbalta 20 mg at bedtime, clonazepam as needed for anxiety, Restasis eyedrops twice daily, furosemide 40 mg daily, Bystolic 10 mg daily, hydromorphone pump. She also uses Advil 2 daily. FAMILY HISTORY: Notable for heart disease. No family history of colon cancer. SOCIAL HISTORY: Occasional alcohol use, 1 or 2 monthly. She quit smoking more than 30 years ago. She lives at home with her . REVIEW OF SYSTEMS: GENERAL: She may have lost a few pounds. No fever or chills. HEENT: No recent change in vision, hearing, or sores in the mouth. PULMONARY: Chronic lung disease, oxygen dependent at nighttime. No history of tuberculosis. CARDIOVASCULAR: Has had congestive heart failure in the past. She sees Dr. Watson on a regular basis, has not had any recent problems. GASTROINTESTINAL: No nausea or vomiting. She has had reflux. She has had issues with constipation. Her recall for colonoscopy is in 2020. GENITOURINARY: Without dysuria, pyuria, kidney stones, contracture or infections. MUSCULOSKELETAL: Degenerative joint disease, chronic back pain. SKIN: Without rashes. PSYCHIATRIC: No depression, anxiety or bipolar illness. ENDOCRINE: No thyroid problems or diabetes. HEMATOLOGIC: No bleeding, bruising or malignancies. PHYSICAL EXAMINATION: GENERAL: The patient is a well-developed, well-nourished, pleasant woman. She is in no acute distress, but she is very anxious about her pain. VITAL SIGNS: Blood pressure 139/70, pulse of 99. HEENT: Anicteric. Pupils equal and round. Oropharynx clear. [facility] [address] [place] [address] CONSULTATION Name: LESLEY PANDYA Room #: 447-P ADM IN M.R.#: [id number] Admission: 06/06/19 Attend Phys: Josh Zepeda MD Discharge: Date of : 35 Report #: [id number] NECK: Supple. CHEST: Clear. HEART: Regular rate and rhythm, normal S1, normal S2. ABDOMEN: Little obese, soft with normal bowel sounds. No bruits. Pain pump is in the mid right lateral abdomen. There is mild tenderness around the pain pump, but above and below the pain pump there is no significant tenderness. No masses or hernias were felt. RECTAL: Not done. EXTREMITIES: Without cyanosis, clubbing or edema. NEUROLOGIC: Oriented to person, place, and time. Moves all 4 extremities well. ASSESSMENT: 1. Right mid lateral abdominal pain. 2. History of chronic abdominal pain. 3. History of multiple abdominal surgeries. 4. History of chronic use of narcotics with intrathecal pump and oral narcotics. 5. Chronic obstructive pulmonary disease, oxygen dependent. 6. History of congestive heart failure. 7. Atrial fibrillation, on anticoagulation. 8. History of dysphagia with last dilation in 03/2018. Etiology of pain is not entirely clear. She has had chronic pain and interestingly going back to old notes and reports, location of the pain varies. She reports this is a new pain. She has a completely benign abdomen. CT was nondiagnostic. She does have constipation which may be an issue. Her narcotics may be a contributing factor as well. She does take nonsteroidals. RECOMMENDATIONS: 1. We will have her use MiraLax twice daily. 2. Try to reduce narcotics if at all possible. 3. Cautious with nonsteroidals. 4. Continue PPI. 5. If no better, consider upper endoscopy, although I doubt it would add much at this point in time. By: [id number] Agustin Sands MD /luana
[2019-06-06 16:51] VITALS: BP 184/92
[2019-06-06 17:17] LABS: ABSOLUTE NEUTROPHILS 2.6 thou/uL (1.4-8.2); BASOPHILS 1.3 % (0.0-2.0); EOSINOPHILS 8.4 % (0.0-3.0); HEMATOCRIT 30.8 % (37.0-47.0); HEMOGLOBIN 10.1 gm/dL (12.0-15.0); LYMPHOCYTES 29.8 % (24.0-44.0); MCH 31.6 pg (26.0-34.0); MCHC 32.9 g/dL (28.0-37.0); MONOCYTES 12.3 % (1.0-8.0); PLATELET COUNT 351 thou/uL (150-400); POLYS 48.2 % (36.0-66.0); RBC 3.21 mil/uL (4.20-5.00); RDW 15.5 % (10.5-14.5); WBC 5.5 thou/uL (4.0-11.0)
[2019-06-06 17:24] LABS: ANION GAP 7 mmol/L (7-16); BUN 24 mg/dL (7-18); CALCIUM 9.3 mg/dL (8.5-10.1); CHLORIDE 101 mmol/L (98-107); CO2 31 mmol/L (21-32); CREATININE 1.2 mg/dL (0.6-1.0); GLUCOSE 113 mg/dL (74-106); POTASSIUM 4.6 mmol/L (3.5-5.1); SODIUM 139 mmol/L (136-145)
[2019-06-06 17:34] LABS: ALBUMIN 3.8 g/dL (3.4-5.0); LIPASE 32 U/L (73-393); SGOT 20 U/L (15-37); SGPT 17 U/L (30-65); TOTAL BILIRUBIN 0.3 mg/dL (<0.1-1.0); TROPONIN-I <0.06 ng/mL (<0.06)
[2019-06-06 18:32] LABS: URINE BILIRUBIN NEGATIVE (Negative); URINE BLOOD 1+ (Negative); URINE CLARITY CLEAR; URINE COLOR YELLOW; URINE GLUCOSE-RANDOM* NEGATIVE (Negative); URINE KETONES NEGATIVE (Negative); URINE LEUKOCYTES-REFLEX NEGATIVE (Negative); URINE NITRITE-REFLEX NEGATIVE (Negative); URINE PROTEIN (DIPSTICK) NEGATIVE (Negative); URINE UROBILINOGEN 0.2 E.U./dl (0.2-1.0)
[2019-06-06 18:55] LABS: BACTERIA-REFLEX None Seen /HPF (None Seen); CASTS None Seen /LPF (None Seen); CRYSTALS None Seen /LPF (None Seen); SQUAMOUS 0-3 Few /LPF (0-3)
[2019-06-06 18:56] LABS: URINE RBC 0-2 Rare /HPF (0-2); URINE WBC-REFLEX 0-5 Rare /HPF (0-5)
--- NOTE | 2019-06-06 20:20 | NUR ---
ATTEMPTED TO CALL PT'S W/O ANY SUCCESS. WILL TRY AGAIN IN 15 MINS.
--- NOTE | 2019-06-06 20:42 | NUR ---
PT'S DAUGHTER MRS.RITA SHAHPADMINI WHO IS ALSO DPOA CALLED FOR HER CURRENT UPDATES.
[2019-06-06 21:54] VITALS: BP 130/55
[2019-06-06 22:14] VITALS: BP 143/63
--- NOTE | 2019-06-06 23:50 | NUR ---
2229 ASSUMED CARE OF PT AFTER REPORT FROM BERNARD ROSE, PT RESTING IN BED AND FALLING ASLEEP DURING ADMISSION ASSESSMENT, ABD SOFT WITH PAIN PUMP PALPABLE TO RLQ, PT IS UP TO BEDSIDE COMMODE AND PASSING FLATUS, ATATES PAIN TO ABDOMEN IS A CRAMPING FEELING. DENIES N/V. LAST BM TODAY STATES SOFT. NO OTHER COMPLAINTS AT THIS TIME, BILAT LOWER LEGS RED, WITH TRACE EDEMA. PT STATES LEGS HAVE BEEN THAT WAY FOR A COUPLE MONTHS, FALL PRECAUTIONS IN PLACE, SCD'S ON, WILL CONTINUE TO MONITOR WITH HOURLY ROUNDING.
[2019-06-07 04:26] VITALS: BP 133/86
[2019-06-07 07:23] VITALS: BP 139/70
[2019-06-07 09:59] LABS: POTASSIUM 4.3 mmol/L (3.5-5.1)
--- NOTE | 2019-06-07 11:15 | EKG ---
[facility] [place] [address] ELECTROCARDIOGRAM REPORT Name: LESLEY PANDYA Room #: 447-P ADM IN M.R.#: [id number] Admission: 06/06/19 Attend Phys: Josh Zepeda MD Discharge: Date of : 35 Report #: [id number] THIS REPORT FOR: cc: Brandon Nascimento MD, Neal A. MD Lundgren,Darnell Mullins MD [facility] ~ THIS REPORT FOR: //name// [facility] ED Test Date: 2019-06-06 Test Time: 19:59:48 Pat Name: LESLEY PANDYA Department: Room: [facility] Gender: F Gm Video: katherine martin : 1935 Requested By: Laureen Gamez Order Number: [id number] MD: Darnell Yadav Measurements Intervals [place] Rate: 71 P: 73 VA: 185 QRS: 2 QRSD: 96 T: 35 QT: 389 QTc: 423 Interpretive Statements Sinus rhythm Low voltage, precordial leads Compared to ECG 02/20/2017 13:27:20 No significant change was found Electronically Signed On 06-07-2019 11:14:15 CDT by Darnell Yadav [email or web address] <ELECTRONICALLY SIGNED> By: Darnell Yadav MD, [facility] 06/07/19 1114 58 58 Darnell Yadav MD, [facility] /EPI
[2019-06-07] MEDS ORDERED: MIRALAX17 GM PO (13:37)
[2019-06-07] MEDS ORDERED: SENNA-TIME S T1 EACH PO (13:37)
[2019-06-07 13:46] VITALS: BP 139/70
== END 2019-06-07 15:01 | disposition home or self-care (01) | DRG 683 ==
LOC: ER 16:47 → EROBS 19:19 → 4S 21:54
PROVIDERS: Nurse Practitioner Family; ADMIT Hospitalist
DX: N17.9 Acute kidney failure, unspecified (principal); J96.11 Chronic respiratory failure with hypoxia; R65.10 Systemic inflammatory response syndrome (SIRS) of non-infectious origin without acute organ dysfunction; K59.00 Constipation, unspecified; K21.9 Gastro-esophageal reflux disease without esophagitis; M54.9 Dorsalgia, unspecified; G89.29 Other chronic pain; F32.9 Major depressive disorder, single episode, unspecified; M19.90 Unspecified osteoarthritis, unspecified site; F41.9 Anxiety disorder, unspecified; I48.91 Unspecified atrial fibrillation; K44.9 Diaphragmatic hernia without obstruction or gangrene; J44.9 Chronic obstructive pulmonary disease, unspecified; I50.9 Heart failure, unspecified; I11.0 Hypertensive heart disease with heart failure; Z98.41 Cataract extraction status, right eye; Z79.2 Long term (current) use of antibiotics; Z79.01 Long term (current) use of anticoagulants; Z90.49 Acquired absence of other specified parts of digestive tract; Z90.89 Acquired absence of other organs; Z98.1 Arthrodesis status; Z98.42 Cataract extraction status, left eye; Z99.81 Dependence on supplemental oxygen; Z79.899 Other long term (current) drug therapy; Z87.891 Personal history of nicotine dependence
CPT/HCPCS: 10195

== ENCOUNTER → 2019-06-11 | Outpatient (CLI) | payer OTHER, MEDICARE ==
[~2019-06-11] VITALS: Ht 154.9 cm; Wt 72.2 kg
[~2019-06-11] MED LIST changes: +SENNA-TIME S T1 EACH PO
--- NOTE | ~2019-06-11 | HPC ---
[facility] [place] [address] PAIN MANAGEMENT CONSULTATION Name: LESLEY PANDYA Room #: REG NIKKI Arellano.#: [id number] Admission: 06/11/19 Attend Phys: Marcin Hernandez MD Discharge: Date of : 35 Report #: [id number] THIS REPORT FOR: cc: Brandon Nascimento MD, Neal A. MD Morgan,Marcin Sanz MD ~ CC: Brandon Hernandez DATE OF SERVICE: 06/11/2019 Followup visit for chronic intractable pain with refill and reprogramming of intrathecal infusion pump. The patient returns to clinic today for refill of her pump. Her pump is currently infusing bupivacaine, clonidine and hydromorphone. Her last refill was on 04/13/2019. She reports that she currently is doing fine. She did have some difficulties during April. We are trying to retrieve the records from her hospitalization. She was in for just a few days, returned home back close to baseline. She reports today that her pain management is adequate. No adjustment or increases in medication through the pump or orally are requested. PQRS: Positive for diffuse osteoarthritis. BMI of 30.1. Vital signs: Blood pressure 142/70, heart rate 66, respirations 20, O2 sat 98. Pain intensity 7-8/10. She needs help walking, standing and uses a walker. She is a fall risk, but has not fallen in the last 3 months by her report. She is on Xarelto, is treated for hypertension by her primary care physician. She does have an opioid agreement on her chart. We periodically provided with oral opioids, which she is taking carefully under the prescription monitoring program. Functional assessment score remains high at 55, suggesting high impact of her pain on day-to-day activities and mood. She denies use of tobacco and alcohol. IMPRESSION: 1. Chronic intractable low back pain with spondylosis and radiculopathy. 2. Multi-joint arthritis. 3. Management of intrathecal pump with refill and reprogramming. PROCEDURE: After informed consent, she was taken to the procedure area, where the skin was prepped with ChloraPrep. Skin was anesthetized with lidocaine at her request. A 22-gauge non-coring needle advanced in pump. Old medication removed and discarded per protocol. Pump refilled then with her current medications, the combination of hydromorphone, bupivacaine and clonidine. No adjustments were made in volume. Her next refill is scheduled for 08/04/2019. She will be receiving 6.6 mg of hydromorphone, 4.4 mg of bupivacaine, and 22 [place] [address] PAIN MANAGEMENT CONSULTATION Name: LESLEY PANDYA Room #: REG NIKKI Bennett#: [id number] Admission: 06/11/19 Attend Phys: Marcin Hernandez MD Discharge: Date of : 35 Report #: [id number] of clonidine. Followup visit planned in the pain clinic at that time, she was discharged with a copy of reprogramming information for her records. It was confirmed by myself and the nurse prior to discharge. By: 1618 [id number] Marcin Hernandez MD /nt
[2019-06-11 13:43] VITALS: BP 142/70
--- NOTE | 2019-06-11 13:53 | NUR ---
Pain Clinic Assessment: 1. History of Osteoarthritis: GENERALIZED History of Rheumatoid Arthritis: Not Applicable 2. Height: 5 ft. 1 in. 154.9 cm. Weight: 159.2 lb. oz. 72.213 kg. Patient's BMI: 30.1 3. Vital Signs: BP: 142/70 Pulse: 66 Resp: 20 Temp: 02 Sat: 98 ECG Mon: 4. Pain Intensity: 7-8 5. Fall Risk: Dizziness: N Needs help standing or walking: Y Fallen in the last 3 months: N Fall risk comments: WALKER 6. Patient on Blood Thinner: xarelto 7. History of Hypertension: Y 8. Opioid Therapy greater than 6 weeks: Y Opiate Contract Signed: 03/29/16 9. Risk Assessment Tool Provided: 0/low 10. Functional Assessment Tool: 55/70 11. Recreational Drug Use: Never Drug Type: Tobacco Use: Never Smoker Tobacco Type: Amount or Packs/day: How Many Years: Alcohol Use: No Frequency: Quant:
== END | disposition home or self-care (01) ==
LOC: PAIN 12:56
DX: Z45.1 Encounter for adjustment and management of infusion pump (principal); G89.29 Other chronic pain; M47.26 Other spondylosis with radiculopathy, lumbar region; M19.90 Unspecified osteoarthritis, unspecified site; I10 Essential (primary) hypertension; Z98.890 Other specified postprocedural states; Z79.01 Long term (current) use of anticoagulants; Z79.899 Other long term (current) drug therapy; Z79.891 Long term (current) use of opiate analgesic

== ENCOUNTER → 2019-06-18 | Outpatient (CLI) | payer OTHER, MEDICARE ==
[~2019-06-18] VITALS: Ht 154.9 cm; Wt 70.8 kg
--- NOTE | 2019-06-19 08:26 | P ---
[facility] [place] [address] PROCEDURE REPORT Name: LESLEY PANDYA Room #: REG NIKKI Jayne.#: [id number] Admission: 06/18/19 Attend Phys: Agustin Sands MD Discharge: Date of : 35 Report #: [id number] THIS REPORT FOR: cc: Brandon Nascimento MD, Neal A. MD Thesing,Agustin Horton MD ~ CC: Agustin Nascimento DATE OF SERVICE: 06/18/2019 OUTPATIENT COLONOSCOPY REPORT BRIEF HISTORY: The patient is an 83-year-old woman with multiple medical problems including previous surgery for diverticular disease as well as chronic abdominal pain. She has an indwelling pain pump. She has had recent change in bowel habits with change in stool caliber and frequency. PREOPERATIVE DIAGNOSIS: Change in bowel habits. POSTOPERATIVE DIAGNOSES: 1. Diverticulosis coli. 2. Unremarkable rectosigmoid anastomosis. MEDICATIONS: Deep sedation with propofol per anesthesia. SPECIMEN: None. ESTIMATED BLOOD LOSS: None. PROCEDURE: Colonoscopy to cecum. FINDINGS: Prior to propofol sedation, procedure of colonoscopy discussed with the patient as well as potential risks and its complications. She indicates she understands and desires to proceed. DESCRIPTION OF PROCEDURE: With the patient in left lateral decubitus position, digital examination was completed, which revealed no abnormalities. Subsequently, the Olympus video colonoscope was introduced into the rectum, advanced under direct vision to the cecum. Done with minimal difficulty. Cecum was identified by the ileocecal valve and the appendiceal orifice. I attempted to advance the scope into the distal terminal ileum. However, due to looping the scope, I could not cross the ileocecal valve. I was briefly able to see the mouth of the ileocecal valve and see a villous pattern, but we could not intubate. I believe this is secondary to looping. Obvious obstructing lesion [facility] [address] [place] [address] PROCEDURE REPORT Name: LESLEY PANDYA Room #: REG NIKKI Arellano.#: [id number] Admission: 06/18/19 Attend Phys: Agustin Sands MD Discharge: Date of : 35 Report #: [id number] was not seen. At that point, the scope was slowly withdrawn and careful circumferential views were obtained. Overall, the prep was good. The mucosa within normal limits, normal vascular pattern, normal light reflex. As we withdrew the scope, an occasional diverticulum was seen in the proximal colon. There was no endoscopic evidence of diverticulitis. No neoplastic lesions were seen. She has somewhat of a tortuous colon, but no obstructing lesions were seen. In the descending colon, a few scattered diverticula were seen as well. At the rectosigmoid junction, a double barrel surgical anastomosis was seen. The anastomosis was unremarkable. There is no evidence of ulcerations or neoplastic changes. The blind end of the anastomosis was entered and noted to be unremarkable other than a few scattered diverticula. The scope was withdrawn into the rectum, no abnormalities were seen. Upon retroflexion, no abnormalities were seen. Scope was withdrawn. The patient tolerated the procedure well. CONDITION OF THE PATIENT UPON DISCHARGE: Following procedure, the patient drowsy and arousable. She will be discharged home when fully ambulatory. INSTRUCTIONS TO THE PATIENT AND FAMILY AT THE TIME OF DISCHARGE: The patient with findings as noted above. I do not see any obstructing lesions or neoplastic lesions. She has chronic abdominal pain, but more recently she has had problems with bowel habits with change in bowel habits. Her pain pump is likely contributing fact with regard to both her chronic abdominal pain as well as her change in bowel habits and worsening constipation. She has used a number of things in the past and right now she is trying to lie on senna. She thinks Linzess was helpful in the past and suggests she use Linzess rather than senna. May also use MiraLax as well. She has had Linzess in the past and I believe she has some at home. I do not know the dosage, will have to clarify with her or her daughter. We will have her return to see me in followup in the office in about 6 weeks. As far as her chronic abdominal pain, hopefully improvement of her bowel function will result in improvement of pain. I would like to avoid anticholinergics in this 83-year-old patient. <ELECTRONICALLY SIGNED> By: Agustin Sands MD 06/19/19 0826 [id number] [id number] Agustin Sands MD /nt
== END | disposition home or self-care (01) ==
LOC: GI 08:47
DX: R19.4 Change in bowel habit (principal); K57.30 Diverticulosis of large intestine without perforation or abscess without bleeding; I11.0 Hypertensive heart disease with heart failure; I50.9 Heart failure, unspecified; I48.91 Unspecified atrial fibrillation; J43.9 Emphysema, unspecified; E78.5 Hyperlipidemia, unspecified; K21.9 Gastro-esophageal reflux disease without esophagitis; M19.90 Unspecified osteoarthritis, unspecified site; F32.9 Major depressive disorder, single episode, unspecified; F41.9 Anxiety disorder, unspecified; Z98.890 Other specified postprocedural states; Z79.899 Other long term (current) drug therapy; Z86.73 Personal history of transient ischemic attack (TIA), and cerebral infarction without residual deficits; Z96.653 Presence of artificial knee joint, bilateral; Z98.41 Cataract extraction status, right eye; Z98.42 Cataract extraction status, left eye; Z98.0 Intestinal bypass and anastomosis status; Z90.49 Acquired absence of other specified parts of digestive tract; Z79.01 Long term (current) use of anticoagulants
CPT/HCPCS: 62110; 62900

== ENCOUNTER → 2019-08-06 | Outpatient (CLI) | payer OTHER, MEDICARE ==
[~2019-08-06] VITALS: Ht 154.9 cm; Wt 75.4 kg
[~2019-08-06] MED LIST changes: +LINZESS72 MCG PO
[2019-08-06 11:06] VITALS: BP 111/52
--- NOTE | 2019-08-06 11:27 | NUR ---
Pain Clinic Assessment: 1. History of Osteoarthritis: GENERALIZED History of Rheumatoid Arthritis: Not Applicable 2. Height: 5 ft. 1 in. 154.9 cm. Weight: 166.2 lb. oz. 75.388 kg. Patient's BMI: 31.4 3. Vital Signs: BP: 111/52 Pulse: 62 Resp: 16 Temp: 02 Sat: 100 ECG Mon: 4. Pain Intensity: 1-2 5. Fall Risk: Dizziness: N Needs help standing or walking: Y Fallen in the last 3 months: Y Fall risk comments: WALKER 6. Patient on Blood Thinner: xarelto 7. History of Hypertension: Y 8. Opioid Therapy greater than 6 weeks: Y Opiate Contract Signed: 03/29/16 9. Risk Assessment Tool Provided: 0/low 10. Functional Assessment Tool: 55/70 11. Recreational Drug Use: Never Drug Type: Tobacco Use: Never Smoker Tobacco Type: Amount or Packs/day: How Many Years: Alcohol Use: Yes Frequency: Special Occasions Quant:
--- NOTE | 2019-08-14 15:51 | HPC ---
[facility] [place] [place] [address] PAIN MANAGEMENT CONSULTATION Name: LESLEY PANDYA Room #: REG NIKKI EwelinaWilfrid.#: [id number] Admission: 08/06/19 Attend Phys: Marcin Hernandez MD Discharge: Date of : 35 Report #: [id number] THIS REPORT FOR: cc: Brandon Nascimento MD, Neal A. MD Morgan,Marcin Sanz MD ~ CC: Brandon Hernandez DATE OF SERVICE: 08/06/2019 Followup visit for chronic intractable pain refill and reprogramming of intrathecal infusion pump. The patient returns to pain clinic today with her daughter. 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 She is nearly completely eliminated it. She still has quite a bit of daily complaint; however, her intrathecal pump has a PTM device, which she does not use it as often as she could in order to control pain. We talked about the importance of exercise and physical therapy and see if we can arrange for some of that. PQRS: Positive for generalized diffuse osteoarthritis. Her BMI is 31.4, blood pressure is 111/52, heart rate 62, respirations 16, and O2 sat 100. She has a low pain score today 1-2/10. She needs some help standing or walking. She is using a walker, so aggressively that her shoulders have really taken a beating and she is possibly in line for some sort of shoulder procedure. We talked about it today, but Kori her daughter who is a registered nurse is not interested in surgery for her mother and is discouraging surgical approaches. Reverse shoulder would require some period of recovery. She did have her knee replaced and recovered effectively. She is on Xarelto and has a history of hypertension. She is on an opioid agreement, which was signed last in 2017. Her ORT score is 0. Functional assessment score is 55. She denies use of tobacco, occasionally has alcohol in a social setting. IMPRESSION: 1. Chronic intractable low back pain, post-laminectomy syndrome. 2. 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 3. Intrathecal infusion pump. PROCEDURE: Refill and reprogramming of intrathecal infusion pump. Skin was prepped with ChloraPrep. A 22-gauge non-coring needle advanced in the pump. Old medication removed and discarded per protocol. Pump was then [facility] [address] [place] [address] PAIN MANAGEMENT CONSULTATION Name: LESLEY PANDYA Room #: REG NIKKI Bennett#: [id number] Admission: 08/06/19 Attend Phys: Marcin Hernandez MD Discharge: Date of : 35 Report #: [id number] refilled with a combination of clonidine, bupivacaine and hydromorphone. Her hydromorphone dose is relatively high at 6.6, but this is adequate for her, clonidine at 22.15, and bupivacaine 4.4. Reprogramming session was checked and she will be followed up in 1 month. <ELECTRONICALLY SIGNED> By: Marcin Hernandez MD 08/14/19 1551 1703 1941 Marcin Hernandez MD /nt
== END | disposition home or self-care (01) ==
LOC: PAIN 07:59
PROVIDERS: ATTEND Anesthesiology Pain Medicine
DX: Z45.1 Encounter for adjustment and management of infusion pump (principal); G89.29 Other chronic pain; M54.5 Low back pain; M96.1 Postlaminectomy syndrome, not elsewhere classified; M19.011 Primary osteoarthritis, right shoulder; M19.012 Primary osteoarthritis, left shoulder; I11.0 Hypertensive heart disease with heart failure; I50.9 Heart failure, unspecified; M19.90 Unspecified osteoarthritis, unspecified site; Z98.890 Other specified postprocedural states; Z79.899 Other long term (current) drug therapy; Z79.891 Long term (current) use of opiate analgesic; Z79.01 Long term (current) use of anticoagulants

== ENCOUNTER → 2019-08-14 | Outpatient (CLI) | payer OTHER, MEDICARE | LOC: SJCVC 12:27 | PROVIDERS: ATTEND Internal Medicine Cardiovascular Disease | DX: I48.0 Paroxysmal atrial fibrillation (principal); R94.31 Abnormal electrocardiogram [ECG] [EKG]; I87.2 Venous insufficiency (chronic) (peripheral); I11.0 Hypertensive heart disease with heart failure; I50.33 Acute on chronic diastolic (congestive) heart failure; R53.83 Other fatigue; J44.9 Chronic obstructive pulmonary disease, unspecified; D68.59 Other primary thrombophilia; M19.90 Unspecified osteoarthritis, unspecified site; Z86.73 Personal history of transient ischemic attack (TIA), and cerebral infarction without residual deficits; Z79.899 Other long term (current) drug therapy; Z87.891 Personal history of nicotine dependence; Z82.49 Family history of ischemic heart disease and other diseases of the circulatory system ==

== ENCOUNTER → 2019-09-28 | Outpatient (CLI) | payer OTHER, MEDICARE ==
[~2019-09-28] VITALS: Ht 154.9 cm; Wt 73.8 kg
--- NOTE | ~2019-09-28 | HPC ---
[facility] [place] [address] PAIN MANAGEMENT CONSULTATION Name: LESLEY PANDYA Room #: REG NIKKI EwelinaWilfrid.#: [id number] Admission: 09/28/19 Attend Phys: Marcin Hernandez MD Discharge: Date of : 35 Report #: [id number] THIS REPORT FOR: cc: Brandon Nascimento MD, Neal A. MD Morgan,Marcin Sanz MD ~ CC: BRANDON Hernandez DATE OF SERVICE: 09/28/2019 Followup visit for chronic low back pain with radiculopathy, the patient returns to pain clinic today specifically for an epidural steroid injection. This is part of the protocol we have utilized to provide pain relief for her chronic low back pain with post-laminectomy syndrome. When she develops radicular symptoms, which for her is numbness and pain into the legs, weakness; an epidural steroid injection has provided relief for her. Today, she has presented with those symptoms and has asked for an injection. She discontinued her Xarelto for 3 days in anticipation of the injection. PQRS: Positive for diffuse osteoarthritis with lumbar spondylosis. BMI is 30.8, blood pressure 136/61, heart rate 72, respirations 20, pain intensity 8/10; pain with walking and standing. She has had a fall within the last several weeks, landing on her right side. She did not go to the hospital. She uses a walker and we discussed the importance of being cautious, particularly in light of the fact that she is using Xarelto. She has a history of hypertension. She is on opioid therapy. We provided some preventative medicine for her, which she uses very carefully and cautiously; the doses have been reduced over the years as we rely more heavily on her intrathecal pump. She denies use of tobacco, denies use of alcohol. All medications have been reviewed and are reconciled. Her risk score for opioids is 1. IMPRESSION: Chronic low back pain, post-laminectomy syndrome with radiculopathy. PROCEDURE: L3-L4 epidural injection under fluoroscopic guidance. Using guidance from previous injections she was taken to the fluoroscopic suite and placed in the prone position. Skin was prepped with ChloraPrep. Skin was anesthetized over the L3-L4 interspace. A 20-gauge Tuohy epidural needle was advanced in the epidural space with loss of resistance. There was no blood or CSF aspirated. A 1 mL of Omnipaque injected. Good spread of dye was observed [address] [address] PAIN MANAGEMENT CONSULTATION Name: LESLEY PANDYA Room #: REG RANJEETOfelia Bennett#: [id number] Admission: 09/28/19 Attend Phys: Marcin Hernandez MD Discharge: Date of : 35 Report #: [id number] into the epidural space. It was then followed by 3 mL of 0.5% lidocaine mixed with 80 mg of triamcinolone. She tolerated the procedure well. There were no complications. She was taken to recovery room for short observation and discharged. Followup visit planned as needed. By: 1536 1643 Marcin Hernandez MD /nt
[2019-09-28 14:44] VITALS: BP 136/61
--- NOTE | 2019-09-28 14:57 | NUR ---
Pain Clinic Assessment: 1. History of Osteoarthritis: GENERALIZED History of Rheumatoid Arthritis: Not Applicable 2. Height: 5 ft. 1 in. 154.9 cm. Weight: 162.8 lb. oz. 73.846 kg. Patient's BMI: 30.8 3. Vital Signs: BP: 136/61 Pulse: 72 Resp: 20 Temp: 02 Sat: 96 ECG Mon: 4. Pain Intensity: 8 5. Fall Risk: Dizziness: N Needs help standing or walking: Y Fallen in the last 3 months: Y Fall risk comments: WALKER 6. Patient on Blood Thinner: xarelto 7. History of Hypertension: Y 8. Opioid Therapy greater than 6 weeks: Y Opiate Contract Signed: 03/29/16 9. Risk Assessment Tool Provided: LOW RISK 02/20 10. Functional Assessment Tool: 11. Recreational Drug Use: Never Drug Type: Tobacco Use: Never Smoker Tobacco Type: Amount or Packs/day: How Many Years: Alcohol Use: Yes Frequency: Weekly Quant: 1
== END ==
LOC: PAIN 06:59
PROVIDERS: ATTEND Anesthesiology Pain Medicine
DX: M54.16 Radiculopathy, lumbar region (principal); M96.1 Postlaminectomy syndrome, not elsewhere classified; G89.29 Other chronic pain; I50.9 Heart failure, unspecified; Z87.891 Personal history of nicotine dependence; Z79.899 Other long term (current) drug therapy; Z98.890 Other specified postprocedural states

== ENCOUNTER → 2019-10-29 | Outpatient (CLI) | payer OTHER, MEDICARE ==
[~2019-10-29] VITALS: Ht 154.9 cm; Wt 73.9 kg
--- NOTE | ~2019-10-29 | HPC ---
[facility] [place] [address] PAIN MANAGEMENT CONSULTATION Name: LESLEY PANDYA Room #: REG NIKKI Arellano.#: [id number] Admission: 10/29/19 Attend Phys: Marcin Hernandez MD Discharge: Date of : 35 Report #: [id number] THIS REPORT FOR: cc: Brandon Nascimento MD, Neal A. MD Morgan,Marcin Sanz MD ~ CC: Brandon Hernandez DATE OF SERVICE: 10/29/2019 Followup visit for management of intrathecal infusion pump. The patient returns to pain clinic today for refill of her intrathecal infusion pump. She is doing fine. She does not need an adjustment in her dose. PQRS REVIEW: Positive for generalized arthritis. Her BMI is 30.8, blood pressure 116/50, heart rate 67, respirations 20, pain intensity is 5/10. She walks with a walker and has fallen once within the last 3 months, but did not need to go to the Emergency Room. She is on Xarelto and has a history of hypertension. She is on an opioid agreement signed in 2017 and is low risk on the opioid risk tool. She denies use of tobacco, drinks alcohol occasionally in social settings. IMPRESSION: 1. Chronic low back pain, post-laminectomy syndrome with radiculopathy. The radiculopathy has been improved since her injection in September. 2. Management of intrathecal infusion pump with refill and reprogramming session. PROCEDURE: Skin was prepped with ChloraPrep and a 22-gauge non-coring needle advanced into the intrathecal pump. Old medication was removed and discarded per protocol. The pump was then refilled with a combination of hydromorphone, bupivacaine and clonidine and reprogramming session was performed. No change in dose of medication. A followup visit is scheduled for her next refill in the next 3 months. By: 1735 04 Marcin Hernandez MD /nt
[2019-10-29 14:53] VITALS: BP 116/50
--- NOTE | 2019-10-29 15:15 | NUR ---
Pain Clinic Assessment: 1. History of Osteoarthritis: GENERALIZED History of Rheumatoid Arthritis: Not Applicable 2. Height: 5 ft. 1 in. 154.9 cm. Weight: 163.0 lb. oz. 73.936 kg. Patient's BMI: 30.8 3. Vital Signs: BP: 116/50 Pulse: 67 Resp: 20 Temp: 02 Sat: 100 ECG Mon: 4. Pain Intensity: 10 5. Fall Risk: Dizziness: N Needs help standing or walking: Y Fallen in the last 3 months: Y Fall risk comments: WALKER 6. Patient on Blood Thinner: xarelto 7. History of Hypertension: Y 8. Opioid Therapy greater than 6 weeks: Y Opiate Contract Signed: 03/29/16 9. Risk Assessment Tool Provided: LOW RISK 02/20 10. Functional Assessment Tool: 11. Recreational Drug Use: Never Drug Type: Tobacco Use: Never Smoker Tobacco Type: Amount or Packs/day: How Many Years: Alcohol Use: Yes Frequency: Special Occasions Quant: 1
== END | disposition home or self-care (01) ==
LOC: PAIN 06:49
PROVIDERS: ATTEND Anesthesiology Pain Medicine
DX: M54.5 Low back pain (principal); G89.29 Other chronic pain; M96.1 Postlaminectomy syndrome, not elsewhere classified; M54.16 Radiculopathy, lumbar region; Z79.899 Other long term (current) drug therapy; Z88.8 Allergy status to other drugs, medicaments and biological substances

== ENCOUNTER → 2020-01-04 | Outpatient (CLI) | payer OTHER, MEDICARE ==
[~2020-01-04] VITALS: Ht 154.9 cm; Wt 72.7 kg
[~2020-01-04] MED LIST changes: +DIAZEPAM 10 MG10 M1 PO; +DULOXETINE HCL20 MG PO; +NEURONTIN100 MG PO
[2020-01-04 13:14] VITALS: BP 119/51
--- NOTE | 2020-01-04 13:46 | NUR ---
Pain Clinic Assessment: 1. History of Osteoarthritis: GENERALIZED History of Rheumatoid Arthritis: Not Applicable 2. Height: 5 ft. 1 in. 154.9 cm. Weight: 160.2 lb. oz. 72.666 kg. Patient's BMI: 30.3 3. Vital Signs: BP: 119/51 Pulse: 60 Resp: 16 Temp: 02 Sat: 96 ECG Mon: 4. Pain Intensity: 6-7 5. Fall Risk: Dizziness: N Needs help standing or walking: Y Fallen in the last 3 months: N Fall risk comments: WALKER 6. Patient on Blood Thinner: xarelto 7. History of Hypertension: Y 8. Opioid Therapy greater than 6 weeks: Y Opiate Contract Signed: 03/29/16 9. Risk Assessment Tool Provided: LOW RISK 02/20 10. Functional Assessment Tool: 11. Recreational Drug Use: Never Drug Type: Tobacco Use: Never Smoker Tobacco Type: Amount or Packs/day: How Many Years: Alcohol Use: Yes Frequency: Quant:
== END | disposition home or self-care (01) ==
LOC: PAIN 06:57
PROVIDERS: ATTEND Anesthesiology Pain Medicine
DX: Z45.1 Encounter for adjustment and management of infusion pump (principal); M54.5 Low back pain; G89.29 Other chronic pain; M47.26 Other spondylosis with radiculopathy, lumbar region; M96.1 Postlaminectomy syndrome, not elsewhere classified; I11.0 Hypertensive heart disease with heart failure; I50.9 Heart failure, unspecified; Z98.890 Other specified postprocedural states; Z79.899 Other long term (current) drug therapy; Z79.01 Long term (current) use of anticoagulants

== ENCOUNTER → 2020-01-11 | Outpatient (CLI) | payer OTHER, MEDICARE ==
[~2020-01-11] VITALS: Ht 154.9 cm; Wt 72.6 kg
[2020-01-11 15:33] VITALS: BP 108/50
--- NOTE | 2020-01-11 15:50 | NUR ---
Pain Clinic Assessment: 1. History of Osteoarthritis: GENERALIZED History of Rheumatoid Arthritis: Not Applicable 2. Height: 5 ft. 1 in. 154.9 cm. Weight: 160.0 lb. oz. 72.576 kg. Patient's BMI: 30.2 3. Vital Signs: BP: 108/50 Pulse: 70 Resp: 16 Temp: 02 Sat: 96 ECG Mon: 4. Pain Intensity: 6-7 5. Fall Risk: Dizziness: N Needs help standing or walking: Y Fallen in the last 3 months: N Fall risk comments: WALKER 6. Patient on Blood Thinner: xarelto 7. History of Hypertension: Y 8. Opioid Therapy greater than 6 weeks: Y Opiate Contract Signed: 03/29/16 9. Risk Assessment Tool Provided: LOW RISK 02/20 10. Functional Assessment Tool: 11. Recreational Drug Use: Never Drug Type: Tobacco Use: Never Smoker Tobacco Type: Amount or Packs/day: How Many Years: Alcohol Use: Yes Frequency: Weekly Quant: 1-2 glasses wine
== END | disposition home or self-care (01) ==
LOC: PAIN 06:58
PROVIDERS: ATTEND Anesthesiology Pain Medicine
DX: M54.16 Radiculopathy, lumbar region (principal); M96.1 Postlaminectomy syndrome, not elsewhere classified; I10 Essential (primary) hypertension; M19.90 Unspecified osteoarthritis, unspecified site; Z98.890 Other specified postprocedural states; Z79.899 Other long term (current) drug therapy; Z79.01 Long term (current) use of anticoagulants

== ENCOUNTER → 2020-02-22 | Outpatient (CLI) | payer OTHER, MEDICARE ==
[~2020-02-22] VITALS: Ht 154.9 cm; Wt 69.8 kg
[2020-02-22 09:56] VITALS: BP 124/60
--- NOTE | 2020-02-22 10:18 | NUR ---
Pain Clinic Assessment: 1. History of Osteoarthritis: GENERALIZED History of Rheumatoid Arthritis: Not Applicable 2. Height: 5 ft. 1 in. 154.9 cm. Weight: 153.8 lb. oz. 69.763 kg. Patient's BMI: 29.1 3. Vital Signs: BP: 124/60 Pulse: 63 Resp: 20 Temp: 02 Sat: 95 ECG Mon: 4. Pain Intensity: 7 5. Fall Risk: Dizziness: Y Needs help standing or walking: Y Fallen in the last 3 months: Y Fall risk comments: WALKER 6. Patient on Blood Thinner: xarelto 7. History of Hypertension: Y 8. Opioid Therapy greater than 6 weeks: Y Opiate Contract Signed: 03/29/16 9. Risk Assessment Tool Provided: LOW RISK 02/20 10. Functional Assessment Tool: 11. Recreational Drug Use: Never Drug Type: Tobacco Use: Never Smoker Tobacco Type: Amount or Packs/day: How Many Years: Alcohol Use: Yes Frequency: Quant:
== END | disposition home or self-care (01) ==
LOC: PAIN 06:58
PROVIDERS: ATTEND Anesthesiology Pain Medicine
DX: M54.16 Radiculopathy, lumbar region (principal); G89.29 Other chronic pain; I10 Essential (primary) hypertension; Z98.890 Other specified postprocedural states; Z79.899 Other long term (current) drug therapy; Z79.891 Long term (current) use of opiate analgesic

== ENCOUNTER → 2020-03-03 | Outpatient (CLI) | payer OTHER, MEDICARE ==
[~2020-03-03] VITALS: Ht 154.9 cm; Wt 77.5 kg
[2020-03-03 12:58] VITALS: BP 132/68
--- NOTE | 2020-03-03 13:06 | NUR ---
Pain Clinic Assessment: 1. History of Osteoarthritis: GENERALIZED History of Rheumatoid Arthritis: Not Applicable 2. Height: 5 ft. 1 in. 154.9 cm. Weight: 170.8 lb. oz. 77.474 kg. Patient's BMI: 32.3 3. Vital Signs: BP: 132/68 Pulse: 75 Resp: 18 Temp: 02 Sat: 92 ECG Mon: 4. Pain Intensity: 8 5. Fall Risk: Dizziness: N Needs help standing or walking: N Fallen in the last 3 months: Y Fall risk comments: FELL ONE MONTH AGO WHEN SHE LOST HER BALANCE. DENIES INJURY 6. Patient on Blood Thinner: xarelto 7. History of Hypertension: Y 8. Opioid Therapy greater than 6 weeks: Y Opiate Contract Signed: 03/29/16 9. Risk Assessment Tool Provided: LOW RISK 02/20 10. Functional Assessment Tool: 58/ 11. Recreational Drug Use: Never Drug Type: Tobacco Use: Never Smoker Tobacco Type: Amount or Packs/day: How Many Years: Alcohol Use: Yes Frequency: Weekly Quant: 1
== END | disposition home or self-care (01) ==
LOC: PAIN 06:56
PROVIDERS: ATTEND Anesthesiology Pain Medicine
DX: Z45.1 Encounter for adjustment and management of infusion pump (principal); G89.29 Other chronic pain; I11.0 Hypertensive heart disease with heart failure; I50.9 Heart failure, unspecified; Z98.890 Other specified postprocedural states; Z79.899 Other long term (current) drug therapy; Z79.01 Long term (current) use of anticoagulants

== ENCOUNTER 2020-03-23 22:44 | Inpatient (IN) | payer OTHER, MEDICARE ==
[~2020-03-23] VITALS: Ht 154.9 cm; Wt 78.0 kg
[2020-03-23 22:44] VITALS: BP 124/38
[2020-03-23 23:28] LABS: ABSOLUTE NEUTROPHILS 2.2 thou/uL (1.4-8.2); BASOPHILS 1.2 % (0.0-2.0); EOSINOPHILS 4.3 % (0.0-3.0); HEMATOCRIT 26.6 % (37.0-47.0); HEMOGLOBIN 8.5 gm/dL (12.0-15.0); LYMPHOCYTES 25.9 % (24.0-44.0); MCH 32.2 pg (26.0-34.0); MCHC 32.2 g/dL (28.0-37.0); MCV 100.3 fL (80.0-100.0); MONOCYTES 15.4 % (1.0-8.0); PLATELET COUNT 184 thou/uL (150-400); POLYS 53.2 % (36.0-66.0); RBC 2.65 mil/uL (4.20-5.00); RDW 15.6 % (10.5-14.5); WBC 4.2 thou/uL (4.0-11.0)
[2020-03-23 23:44] LABS: ANION GAP 8 mmol/L (7-16); BUN 44 mg/dL (7-18); CALCIUM 8.3 mg/dL (8.5-10.1); CHLORIDE 101 mmol/L (98-107); CO2 34 mmol/L (21-32); CREATININE 1.4 mg/dL (0.6-1.0); GLUCOSE 118 mg/dL (74-106); POTASSIUM 4.1 mmol/L (3.5-5.1); SODIUM 143 mmol/L (136-145)
[2020-03-23 23:49] LABS: ALBUMIN 3.5 g/dL (3.4-5.0); SGOT 17 U/L (15-37); SGPT 15 U/L (30-65); TOTAL BILIRUBIN 0.3 mg/dL (0.2-1.0); TOTAL PROTEIN 6.8 g/dL (6.4-8.2); TROPONIN-I <0.06 ng/mL (<0.06)
[2020-03-24 00:30] LABS: URINE BILIRUBIN NEGATIVE (Negative); URINE BLOOD TRACE (Negative); URINE CLARITY CLEAR; URINE COLOR YELLOW; URINE GLUCOSE-RANDOM* NEGATIVE (Negative); URINE KETONES NEGATIVE (Negative); URINE LEUKOCYTES-REFLEX NEGATIVE (Negative); URINE NITRITE-REFLEX NEGATIVE (Negative); URINE PROTEIN (DIPSTICK) NEGATIVE (Negative); URINE SPECIFIC GRAVITY 1.015 (1.005-1.035); URINE UROBILINOGEN 0.2 E.U./dl (0.2-1.0)
[2020-03-24 00:34] LABS: INR 1.1; PROTIME 11.6 Seconds (9.3-11.4)
[2020-03-24 02:51] VITALS: BP 116/50
[2020-03-24 03:03] VITALS: BP 108/46
--- NOTE | 2020-03-24 05:04 | NUR ---
PATIENT WAS A NEW ADMISSION TO THE UNIT THIS SHIFT. SHE ARRIVED VIA CART FROM THE ER AND WAS ABLE TO AMBULATE TO THE BED WITH MODERATE ASSISTANCE INCIDENT FREE. PATIENT IS FULLY ALERT AND ORIENTED AND ABLE TO PARTICIPATE IN ADMISSION. PATIENT HAS MILD COMPLAINTS OF PAIN IN BACK AND LOWER QUADRANT OF ABDOMEN. NURSE TO COMPLETE ADMISSION AND INITIATE PLAN OF CARE.
[2020-03-24] MEDS ORDERED: TORSEMIDE20 MG PO (06:04)
[2020-03-24] MEDS ORDERED: TENORMIN25 MG PO (06:06)
[2020-03-24] MEDS ORDERED: OMEPRAZOLE40 MG PO (06:10)
--- NOTE | 2020-03-24 07:25 | EKG ---
[place] [address] [place] [address] ELECTROCARDIOGRAM REPORT Name: LESLEY PANDYA Room #: 204-P ADM IN M.R.#: [id number] Admission: 03/24/20 Attend Phys: Brandon Nascimento MD Discharge: Date of : 35 Report #: [id number] [facility] ED Test Date: 2020-03-24 Test Time: 01:02:54 Pat Name: LESLEY PANDYA Department: Room: 204 Gender: F Evs Attendant: TABBY : 1935 Requested By: Amie Mariano Order Number: [id number] MD: Roman Wilkins Measurements Intervals [place] Rate: 76 P: 77 [place]: 197 QRS: 10 QRSD: 101 T: 42 QT: 403 QTc: 454 Interpretive Statements Sinus rhythm Low voltage, extremity and precordial leads Compared to ECG 06/06/2019 19:59:48 No significant changes Electronically Signed On 03-24-2020 7:25:20 [employer] 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
[2020-03-24 08:04] VITALS: BP 105/48
[2020-03-24 08:19] LABS: HEMATOCRIT 23.5 % (37.0-47.0); HEMOGLOBIN 7.7 gm/dL (12.0-15.0); MCH 32.9 pg (26.0-34.0); MCHC 32.8 g/dL (28.0-37.0); MCV 100.4 fL (80.0-100.0); RBC 2.34 mil/uL (4.20-5.00); RDW 15.6 % (10.5-14.5); WBC 3.7 thou/uL (4.0-11.0)
[2020-03-24 08:55] LABS: ABSOLUTE RETIC COUNT 0.0386 10^6/uL; OBSERVED RETIC COUNT 1.61 % (0.6-2.6)
[2020-03-24 09:04] LABS: % SATURATION 18 % (20-39); IRON 61 ug/dL (50-170); TIBC 330 ug/dL (250-450)
--- NOTE | 2020-03-24 10:00 | 2DMMODE ---
[facility] [place] [address] 2 D/M-MODE ECHOCARDIOGRAM Name: LESLEY PANDYA Room #: 204-P ADM IN M.R.#: [id number] Admission: 03/24/20 Attend Phys: Brandon Nascimento MD Discharge: Date of : 35 Report #: [id number] THIS REPORT FOR: cc: Brandon Nascimento MD, Neal A. MD Santiago, Patrick MD [facility] ~ APPROVED REPORT Study performed: 03/24/2020 08:53:50 EXAM: Comprehensive 2D, Doppler, and color-flow Echocardiogram Patient Location: Bedside Room #: 204 Status: routine BSA: 1.75 HR: 75 bpm BP: 105/48 mmHg Rhythm: Atrial Fibrillation Other Information Study Quality: Good Indications COPD Atrial Fibrillation Hypertension/HDD 2D Dimensions RVDd: 44.76 mm IVSd: 9.71 (7-11mm) LVOT Diam: 18.03 (18-24mm) LVDd: 50.49 mm PWd: 7.95 (7-11mm) LVDs: 25.73 (25-40mm) Aortic Root: 29.48 mm IVC: 14.00 mm Volumes Left Atrial Volume (Systole) Single Plane 4CH: 74.44 mL Single Plane 2CH: 60.82 mL LA ESV Index: 42.00 mL/m2 Aortic Valve AoV Peak Dash.: 1.36 m/s AO Peak Gr.: 7.42 mmHg LVOT Max P.62 mmHg LVOT Max V: 1.08 m/s [facility] [address] [place] [address] 2 D/M-MODE ECHOCARDIOGRAM Name: LESLEY PANDYA Room #: 204-P ADM IN M.R.#: [id number] Admission: 03/24/20 Attend Phys: Brandon Nascimento, Discharge: Date of : 35 Report #: [id number] [id number] Vmax: 2.01 cm2 Pulmonary Valve PV Peak Dash.: 0.92 m/s PV Peak Gr.: 3.41 mmHg Tricuspid Valve TR Peak Dash.: 2.76 m/s TR Peak Gr.: 30.55 mmHg PA Pressure: 36.00 mmHg Left Ventricle The left ventricle is normal size. There is normal LV segmental wall motion. There is normal left ventricular wall thickness. The left ventricular systolic function is normal. The left ventricular ejection fraction is within the normal range. LVEF is 55-60%. This study is not technically sufficient to allow evaluation of the LV diastolic function due to atrial fibrillation. Right Ventricle The right ventricle is normal size. The right ventricular systolic function is normal. Atria Left atrium is dilated. Right atrium is dilated. Aortic Valve The aortic valve is normal in structure. The Aortic valve is sclerotic. No aortic regurgitation is present. There is no aortic valvular stenosis. Mitral Valve The mitral valve is normal in structure. Mild mitral regurgitation. No evidence of mitral valve stenosis. Tricuspid Valve The tricuspid valve is normal in structure. There is moderate tricuspid regurgitation. Estimated PAP 36 mmHg. There is mild pulmonary hypertension. Pulmonic Valve The pulmonary valve is normal in structure. There is no pulmonic valvular regurgitation. Great Vessels The aortic root is normal in size. IVC is normal in size and collapses >50% with inspiration. [facility] [address] [place] [address] 2 D/M-MODE ECHOCARDIOGRAM Name: LESLEY PANDYA Room #: 204-P [facility] IN M.R.#: [id number] Admission: 03/24/20 Attend Phys: Brandon Nascimento, Discharge: Date of : 35 Report #: [id number] Pericardium There is no pericardial effusion. <Conclusion> Normal left ventricular size/wall thickness Ejection fraction 60% Normal right ventricular size/function Mild biatrial enlargement Color-flow Doppler study was performed;aortic/mitral/tricuspid/pulmonary valve Mild aortic valve sclerosis without stenosis Normal mitral valve structure. Mild central mitral valve insufficiency Moderate/eccentric tricuspid valve insufficiency Pulmonary systolic pressure estimated at 36 mmHg No pericardial effusion Normal aortic root size. <ELECTRONICALLY SIGNED> By: Roman Wilkins MD, [facility] 03/24/20 1000 1000 [facility] Roman Wilkins MD, FACC /INF
--- NOTE | 2020-03-24 14:47 | NUR ---
Met with patient who plans to discharge today. Orders for discharge in chart. Patient lives with spouse at [facility]. New snf community consists of independent, assisted and memory care. Patient lives in independent living. She uses a walker and has a scooter as well. Meals provided. Patient/spouse do not drive. Family or [facility] assist. Sp with physical therapist no needs noted. PCP Dr Nascimento. Patient to have another hemoglobin drawn to determine dc today.
[2020-03-24 15:30] VITALS: BP 105/48
--- NOTE | 2020-03-25 06:40 | NUR ---
PATIENT D/C PRIOR TO OT EVAL
== END 2020-03-24 16:02 | disposition home or self-care (01) | DRG 378 ==
LOC: ER 22:44 → EROBS 03-24 01:21 → 2N 03-24 01:21
PROVIDERS: Emergency Medicine; Nurse Practitioner Adult Health; ADMIT Family Medicine; ATTEND Family Medicine
DX: K92.2 Gastrointestinal hemorrhage, unspecified (principal); N17.9 Acute kidney failure, unspecified; D64.9 Anemia, unspecified; K21.9 Gastro-esophageal reflux disease without esophagitis; M19.90 Unspecified osteoarthritis, unspecified site; G89.29 Other chronic pain; F41.9 Anxiety disorder, unspecified; J44.9 Chronic obstructive pulmonary disease, unspecified; I50.9 Heart failure, unspecified; I48.0 Paroxysmal atrial fibrillation; E78.5 Hyperlipidemia, unspecified; I87.2 Venous insufficiency (chronic) (peripheral); I11.0 Hypertensive heart disease with heart failure; F32.9 Major depressive disorder, single episode, unspecified; I25.10 Atherosclerotic heart disease of native coronary artery without angina pectoris; M54.9 Dorsalgia, unspecified; K59.09 Other constipation; T40.605A Adverse effect of unspecified narcotics, initial encounter; Z96.653 Presence of artificial knee joint, bilateral; Y92.89 Other specified places as the place of occurrence of the external cause; Z98.42 Cataract extraction status, left eye; Z98.41 Cataract extraction status, right eye; Z90.49 Acquired absence of other specified parts of digestive tract; Z86.73 Personal history of transient ischemic attack (TIA), and cerebral infarction without residual deficits; Z87.891 Personal history of nicotine dependence
CPT/HCPCS: 10081

== ENCOUNTER → 2020-04-19 | Outpatient (CLI) | payer OTHER, MEDICARE ==
[~2020-04-19] MED LIST changes: +LINZESS PO; +TENORMIN25 MG PO; +TORSEMIDE20 MG PO
[2020-04-19 11:08] VITALS: BP 123/38
[2020-04-19 12:40] VITALS: BP 128/50
--- NOTE | 2020-04-19 13:42 | NUR ---
ARRIVED FOR INJECTAFER INFUSION. TEACHING DONE ON MEDICATION. REVIEWED HEALTH HISTORY AND HOME MEDS. APPX 20 MINUTES AFTER INFUSION COMPLETED PATIENT BEGAN TO COMPLAIN OF ITCHING. NO HIVES SEEN. DENIES DIFFICULTY SWALLOWING. CALL PLACED TO 'S OFFICE. PATIET WANTING TO LEAVE AND TAKE BENADRYL WHEN SHE GETS HOME. OFFICE RETURNED CALL AND WILL CONTACT PATIENT ONCE SHE IS HOME ABOUT POSSIBLY PRETREATING WITH BENADRYL FOR NEXT INFUSION. PATIENT DISCHARGED WITH SON AND NURSE TOOK TO FRONT ENTRANCE. SON PURCHASED BENADRYL FROM PHARMACY AND GAVE PATIENT 50 MG PRIOR TO LEAVING [address] DRIVE IN FRONT OF HOSPITAL. PATIENT DC IN STABLE CONDITION EXCEPT FOR COMPLAINT OF ITCHING. RESPIRATIONS REGULAR AND NONLABORED. PATIENT TO RETURN IN ONE WEEK FOR NEXT INFUSION.
== END ==
LOC: OPONC 10:17
PROVIDERS: ATTEND Internal Medicine Cardiovascular Disease
DX: D50.9 Iron deficiency anemia, unspecified (principal)
CPT/HCPCS: 95000

== ENCOUNTER → 2020-04-26 | Outpatient (CLI) | payer OTHER, MEDICARE ==
[2020-04-26 10:15] VITALS: BP 99/43
[2020-04-26 11:45] VITALS: BP 107/46
--- NOTE | 2020-04-26 12:04 | NUR ---
IN FOR 2ND AND FINAL INJECTAFER INFUSION FOR IRON DEFICIENCY ANEMIA. STATED HAS HAD NO FURTHER ITCHING SINCE LAST WEEK AND SHE TOOK 2 BENADRYL TABLETS PRIOR TO COMING IN TODAY. PREDNISONE GIVEN HERE IN CLINIC. IV PLACED IN RIGHT ARM. TOLERATED INFUSION WITHOUT INCIDENT. OBSERVED FOR 30 MINUTES WITH NO ITCHING OR ADVERSE REACTION NOTED. POST BP GOOD. REMOVED IV AND DISMISSED IN STABLE CONDITION.
== END ==
LOC: OPONC 11:34
PROVIDERS: ATTEND Internal Medicine Cardiovascular Disease
DX: D50.9 Iron deficiency anemia, unspecified (principal)
CPT/HCPCS: 95000

== ENCOUNTER → 2020-05-02 | Outpatient (CLI) | payer OTHER, MEDICARE ==
[~2020-05-02] VITALS: Ht 154.9 cm; Wt 70.3 kg
[2020-05-02 12:45] VITALS: BP 109/52
--- NOTE | 2020-05-02 12:54 | NUR ---
Pain Clinic Assessment: 1. History of Osteoarthritis: GENERALIZED History of Rheumatoid Arthritis: Not Applicable 2. Height: 5 ft. 1 in. 154.9 cm. Weight: 155.0 lb. oz. 70.308 kg. Patient's BMI: 29.3 3. Vital Signs: BP: 109/52 Pulse: 80 Resp: 18 Temp: 02 Sat: 93 ECG Mon: 4. Pain Intensity: 9-10 WORSE SITTING 3-4 5. Fall Risk: Dizziness: N Needs help standing or walking: Y Fallen in the last 3 months: N Fall risk comments: FELL ONE MONTH AGO WHEN SHE LOST HER BALANCE. DENIES INJURY 6. Patient on Blood Thinner: xarelto 7. History of Hypertension: Y 8. Opioid Therapy greater than 6 weeks: Y Opiate Contract Signed: 03/29/16 9. Risk Assessment Tool Provided: LOW RISK 02/20 10. Functional Assessment Tool: 11. Recreational Drug Use: Never Drug Type: Tobacco Use: Former Smoker Tobacco Type: Amount or Packs/day: How Many Years: Alcohol Use: Yes Frequency: Quant:
== END | disposition home or self-care (01) ==
LOC: PAIN 04-28 06:50
PROVIDERS: ATTEND Anesthesiology Pain Medicine
DX: Z45.1 Encounter for adjustment and management of infusion pump (principal); G89.29 Other chronic pain; R10.9 Unspecified abdominal pain; I10 Essential (primary) hypertension; Z98.890 Other specified postprocedural states; Z79.899 Other long term (current) drug therapy; Z79.891 Long term (current) use of opiate analgesic

== ENCOUNTER 2020-07-21 12:09 | Observation (INO) | payer OTHER, MEDICARE ==
[~2020-07-21] VITALS: Ht 154.9 cm; Wt 68.9 kg
[2020-07-21 16:45] VITALS: BP 141/53
[2020-07-21 18:13] LABS: HEMATOCRIT 31.1 % (37.0-47.0); HEMOGLOBIN 10.2 gm/dL (12.0-15.0); MCH 34.3 pg (26.0-34.0); MCV 103.9 fL (80.0-100.0); RBC 2.99 mil/uL (4.20-5.00); RDW 14.4 % (10.5-14.5); WBC 4.2 thou/uL (4.0-11.0)
[2020-07-21 18:21] LABS: CALCIUM 8.7 mg/dL (8.5-10.1); CREATININE 1.2 mg/dL (0.6-1.0); POTASSIUM 4.4 mmol/L (3.5-5.1)
--- NOTE | 2020-07-21 18:34 | NUR ---
ASSUMED PT CARE AT 1645. PT IS ALERT & ORIENTED X4. PT IS UP WITH ASSIST X1 AND USES WALKER TO AMBULATE. PT HAS IV SITE ON L WRIST. PT HAS PAIN PUMP ON R ABDOMEN. PT LAST BM WAS TODAY. PT IS ON ROOM AIR. FINISHED ADMISSION AND MEDICATION RECONCILIATION. PT IS ON CLEAR LIQUID DIET. PT TOLERATED MEDICATION AND DIET WELL. NO C/O OF PAIN, NAUSEA AND VOMITING DURING SHIFT. PT ON THE BED WATCHING TV, BED ON THE LOWEST POSITION, SIDE RAILS UP, CALL LIGHT WITHIN REACH. WILL CONTINUE TO MONITOR PT. FOLLOW POC.
[2020-07-21 20:28] VITALS: BP 144/63
--- NOTE | 2020-07-22 03:37 | NUR ---
UPON SHIFT ASSESSMENT, PT AOX4 WITH INTERMITTENT FORGETFULNESS. PT REPORTS 3/10 THROAT PAIN. PT EXPRESSES ITCHING THROAT AFTER TAKING PO MEDICATIONS FOR CONSTIPATION. ATTENDING PROVIDER NOTIFIED BY DAYSHIFT NURSE, NEW ORDERS ENTERED. PT RECEIVING PRN PO BENADRYL Q4HR. PT DENIES SOB WHILE ON ROOM AIR. PT TOLERATING PO INTAKE OF FLUIDS AND CLEAR LIQUID DIET WITHOUT ISSUE. PT WITHOUT NAUSEA OR EMESIS, REQUESTING ADMINISTRATION OF ANTIEMETIC TO PREVENT NAUSEA. PT RECEIVING PRN IV ZOFRAN Q4HR. PT AMBULATING WITH X1 ASSIST AND WALKER TO BATHROOM. PT REPORTS CHRONIC NUMBNESS AND TINGLING IN BLE. CAPILLARY REFILL LESS THAN 3SEC, PERIPHERAL PULSES PALPABLE IN ALL EXTREMITIES. PT ENCOURAGED TO NOTIFY STAFF FOR ALL NEEDS, CALL LIGHT WITHIN REACH, BED ALARM ON, BED LOCKED IN LOWEST POSITION, FREQUENT MONITORING WILL CONTINUE.
[2020-07-22 08:04] VITALS: BP 126/56
--- NOTE | 2020-07-22 09:02 | NUR ---
ASSESSMENT: CM REVIEWED CHART AND MET WITH PATIENT AT THE BEDSIDE. PT IS ALERT AND ORIENTED X4. PT WAS ADMITTED DUE TO ABDOMINAL PAIN. PT FOLLOWS AT THE PAIN CLINIC FOR INTRATHECAL INFUSION PUMP AND WAS THERE WITH ABDOMINAL PAIN. PT REPORTS THAT SHE LIVES AT THE [facility] WHICH IS AN INDEPENDENT LIVING APTARTMENT WHERE SHE STAYS WITH HER . SHE REPORTS ALL THEIR MEALS ARE SUPPLIED THERE. PT REPORTS THAT SHE USES A WALKER FOR AMBULATION AND ALSO HAS A SCOOTER. PT REPORTS HAVING GRAB BARS IN THE SHOWER AND IS INDEPENDENT WITH ADLS. PT REPORTS SHE HAS NOT HAD HH IN THE PAST OR BEEN TO A POST ACUTE CARE STAY. PT IS HOPEFUL SHE WILL BE ABLE TO GO [place]. CM WILL CONTINUE TO FOLLOW TO ASSIST NEEDED, ANTICIPATE NO NEEDS AT DISCHARGE.
[2020-07-22 09:20] VITALS: BP 126/56
--- NOTE | 2020-07-22 11:19 | NUR ---
Assumed pt care at 7am.Pt in bed sleeping but arousable.Dr Nascimento here early this shift.Dc order noted.Assessment completed.vss.Am meds given with breakfast.Pt dtr notified about picking pt up around 1030.Dc summary compile and reviewed with pt.Saline lock dc'd.Around 1035,pt dc home in [place] with dtr accompanied by office systems technology instructor.
== END 2020-07-22 10:56 | disposition home or self-care (01) ==
LOC: 4S 12:09
PROVIDERS: ADMIT Family Medicine; ATTEND Family Medicine
DX: R10.9 Unspecified abdominal pain (principal); K59.00 Constipation, unspecified; M54.9 Dorsalgia, unspecified; G89.29 Other chronic pain; I50.9 Heart failure, unspecified; Z79.899 Other long term (current) drug therapy
CPT/HCPCS: 10102

== ENCOUNTER 2020-10-03 15:08 | Emergency (ER) | payer OTHER, MEDICARE ==
[~2020-10-03] VITALS: Ht 154.9 cm; Wt 68.0 kg
[2020-10-03 15:31] LABS: ABSOLUTE NEUTROPHILS 1.7 thou/uL (1.4-8.2); BASOPHILS 1.1 % (0.0-2.0); EOSINOPHILS 1.8 % (0.0-3.0); HEMATOCRIT 32.2 % (37.0-47.0); HEMOGLOBIN 10.7 gm/dL (12.0-15.0); LYMPHOCYTES 34.8 % (24.0-44.0); MCH 34.1 pg (26.0-34.0); MCHC 33.3 g/dL (28.0-37.0); MCV 102.2 fL (80.0-100.0); MONOCYTES 11.2 % (1.0-8.0); PLATELET COUNT 93 thou/uL (150-400); POLYS 51.1 % (36.0-66.0); RBC 3.15 mil/uL (4.20-5.00); RDW 14.5 % (10.5-14.5); WBC 3.4 thou/uL (4.0-11.0)
[2020-10-03 15:39] LABS: CALCIUM 8.9 mg/dL (8.5-10.1); CREATININE 1.1 mg/dL (0.6-1.0); POTASSIUM 4.4 mmol/L (3.5-5.1)
[2020-10-03 15:45] LABS: ALBUMIN 3.8 g/dL (3.4-5.0); DIRECT BILIRUBIN 0.1 mg/dL (<0.1-0.2); TOTAL BILIRUBIN 0.6 mg/dL (0.2-1.0); TOTAL PROTEIN 7.3 g/dL (6.4-8.2)
[2020-10-03 16:17] LABS: URINE BILIRUBIN NEGATIVE (Negative); URINE BLOOD 1+ (Negative); URINE CLARITY CLEAR; URINE COLOR YELLOW; URINE GLUCOSE-RANDOM* NEGATIVE (Negative); URINE KETONES NEGATIVE (Negative); URINE LEUKOCYTES-REFLEX NEGATIVE (Negative); URINE NITRITE-REFLEX NEGATIVE (Negative); URINE PROTEIN (DIPSTICK) NEGATIVE (Negative); URINE SPECIFIC GRAVITY <= 1.005 (1.005-1.035); URINE UROBILINOGEN 0.2 E.U./dl (0.2-1.0)
[2020-10-03 16:44] LABS: SQUAMOUS 0-3 Few /LPF (0-3); URINE WBC-REFLEX 0-5 Rare /HPF (0-5)
[2020-10-03 16:45] LABS: BACTERIA-REFLEX 1-9 Few /HPF (None Seen); CASTS None Seen /LPF (None Seen); CRYSTALS None Seen /LPF (None Seen)
[2020-10-03 16:53] LABS: APTT 28.2 Seconds (24.5-32.8); INR 1.04; PROTIME 11.3 Seconds (10.5-12.1)
[2020-10-03] MEDS ORDERED: KRISTALOSE20 GM PO (18:25)
[2020-10-03 18:39] VITALS: BP 110/61
--- NOTE | 2020-10-04 07:26 | EKG ---
[facility] [place] [address] ELECTROCARDIOGRAM REPORT Name: LESLEY PANDYA Room #: DEP Sabrina#: [id number] Admission: 10/03/20 Attend Phys: Discharge: 10/03/20 Date of : 35 Report #: [id number] [facility] ED Test Date: 2020-10-03 Test Time: 15:50:40 Pat Name: LESLEY PANDYA Department: Room: Gender: F Reformatory Attendant: deirdre : 1935 Requested By: Juan Waldrop Order Number: [id number] MD: Roman Wilkins Measurements Intervals [place] Rate: 114 P: PA: QRS: 1 QRSD: 89 T: 19 QT: 312 QTc: 430 Interpretive Statements Atrial fibrillation Borderline low voltage, extremity leads Artifact in lead(s) aVF,V1 and baseline wander in lead(s) III Compared to ECG 03/24/2020 01:02:54 Sinus rhythm no longer present Electronically Signed On 10-04-2020 7:26:13 CDT by Roman Wilkins [email or web address] <ELECTRONICALLY SIGNED> By: Roman Wilkins MD, [facility] 10/04/20 0726 1550 1550 Roman Wilkins MD, [facility] /EPI
== END 2020-10-03 18:39 | disposition home or self-care (01) ==
LOC: ER 15:08
PROVIDERS: Emergency Medicine; Nurse Practitioner
DX: K59.00 Constipation, unspecified (principal); Z20.822 Contact with and (suspected) exposure to COVID-19; I48.91 Unspecified atrial fibrillation; K21.9 Gastro-esophageal reflux disease without esophagitis; F41.9 Anxiety disorder, unspecified; F32.9 Major depressive disorder, single episode, unspecified; J44.9 Chronic obstructive pulmonary disease, unspecified; I11.0 Hypertensive heart disease with heart failure; I50.9 Heart failure, unspecified; Z90.49 Acquired absence of other specified parts of digestive tract; Z90.89 Acquired absence of other organs; Z98.890 Other specified postprocedural states; Z79.899 Other long term (current) drug therapy; Z87.891 Personal history of nicotine dependence

== ENCOUNTER → 2020-10-13 | Outpatient (CLI) | payer OTHER, MEDICARE ==
[~2020-10-13] VITALS: Ht 154.9 cm; Wt 63.8 kg
[~2020-10-13] MED LIST changes: +KRISTALOSE20 GM PO; +NARCAN4 MG NARES
[2020-10-13 10:21] VITALS: BP 121/50
--- NOTE | 2020-10-13 10:38 | NUR ---
Pain Clinic Assessment: 1. History of Osteoarthritis: GENERALIZED History of Rheumatoid Arthritis: Not Applicable 2. Height: 5 ft. 1 in. 154.9 cm. Weight: 140.6 lb. oz. 63.776 kg. Patient's BMI: 26.6 3. Vital Signs: BP: 121/50 Pulse: 59 Resp: 18 Temp: 02 Sat: 100 ECG Mon: 4. Pain Intensity: 8 5. Fall Risk: Dizziness: N Needs help standing or walking: Y Fallen in the last 3 months: N Fall risk comments: FELL ONE MONTH AGO WHEN SHE LOST HER BALANCE. DENIES INJURY 6. Patient on Blood Thinner: xarelto 7. History of Hypertension: Y 8. Opioid Therapy greater than 6 weeks: Y Opiate Contract Signed: 03/29/16 9. Risk Assessment Tool Provided: LOW RISK 02/20 10. Functional Assessment Tool: 58/ 11. Recreational Drug Use: Never Drug Type: Tobacco Use: Former Smoker Tobacco Type: Amount or Packs/day: How Many Years: Alcohol Use: Yes Frequency: Special Occasions Quant: 1-2
== END | disposition home or self-care (01) ==
LOC: PAIN 06:53
PROVIDERS: ATTEND Anesthesiology Pain Medicine
DX: Z45.1 Encounter for adjustment and management of infusion pump (principal); M47.26 Other spondylosis with radiculopathy, lumbar region; M54.5 Low back pain; R10.9 Unspecified abdominal pain; G89.29 Other chronic pain; I10 Essential (primary) hypertension; Z98.890 Other specified postprocedural states; Z79.899 Other long term (current) drug therapy; Z87.891 Personal history of nicotine dependence; Z79.01 Long term (current) use of anticoagulants; Z79.891 Long term (current) use of opiate analgesic; Z88.8 Allergy status to other drugs, medicaments and biological substances

== ENCOUNTER 2020-10-15 18:58 | Observation (INO) | payer OTHER, MEDICARE ==
[~2020-10-15] VITALS: Ht 154.9 cm; Wt 63.5 kg
--- NOTE | ~2020-10-15 | EMS ---
[address] [address] EMS Patient Care Report Name: LESLEY PANDYA Room #: 444-P [facility] Alban Bennett#: [id number] Admission: 10/15/20 Attend Phys: Brandon Nascimento MD Discharge: Date of : 35 Report #: [id number] THIS REPORT FOR: //name// Report Transmitted: 10/17/2020 09:44 EMS Care Summary [place], [place]/[facility] Incident [phone] @ 10/15/2020 18:20 Incident Location [address] [place] [address] Patient LESLEY PANDYA Female, 84 Years 1935 Patient Address [address] [place], [place] [id number] Patient History Chronic Obstructive Pulmonary Disease (COPD),Back Pain (Chronic), Patient Allergies No known allergies, Patient Medications Other, Chief Complaint ABD PAIN AND CONSTIPATION Disposition Transported No Lights/[place] Dispatch Reason Sick Person Transported To [facility] Narrative UPON ARRIVAL WE FOUND OUR 84 YEAR OLD FEMALE PATIENT, 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 THE PATIENT STATES SHE WAS SEEN AT THE [facility] ER ON SATURDAY AND HER PAIN WAS TEMPORARILY RELIEVED WITH MORPHINE. THE PATIENT REQUESTS TRANSPORT BACK TO [facility] FOR ANOTHER MORPHINE INJECTION. Initial Vitals @18:45P: 96,R: 18,BP: 180/76,Pain: 8/10,GCS: 15,SpO2: 95,Revised Trauma: 12, @18:53P: 96,R: 18,BP: 188/70,Pain: 8/10,GCS: 15,SpO2: 94,Revised Trauma: 12, Assessments @18:37MENTAL:Event Oriented,Time Oriented,Person Oriented,Place Oriented,SKIN:HEENT:Eyes: Right Pupil: 4-mm,Eyes: Left Pupil: 4-mm,Head/Face: No Abnormalities,Neck/Airway: No Abnormalities,LUNG SOUNDS:General: Nausea,Left Lower: Tenderness,General: Vomiting,Right Lower: Tenderness,ABDOMEN:General: Nausea,Left Lower: Tenderness,General: Vomiting,Right Lower: Tenderness,PELVIS//GI:No Abnormalities,EXTREMITIES:Left Arm: No Abnormalities,Right Arm: No Abnormalities,Left Leg: No Abnormalities,Right Leg: No Abnormalities,PULSE:Radial: 2+ Normal,NEURO:No Abnormalities, Impression Abdominal Pain Procedures @18:37ALS AssessmentResponse: UnchangedSucceeded Timeline 18:16,Call Received 18:16,Dispatch Notified 18:20,Dispatched 18:20,En Route 18:34,On Scene 18:37,At Patient 18:37,ALS Assessment,Response: UnchangedSucceeded, 18:42,Depart Scene 18:45,BP: 180/76 M,PULSE: 96,RR: 18 R,SPO2: 95 Ox,ETCO2: ,BG: ,PAIN: 8,GCS: 15, 18:53,BP: 188/70 M,PULSE: 96,RR: 18 R,SPO2: 94 Ox,ETCO2: ,BG: ,PAIN: 8,GCS: 15, 18:55,At Destination 19:06,Call Closed Disclaimer v1.1 Copyright 2020 [employer] This EMS Care Summary contains data elements from the applicable legal record (which may be displayed differently). It is designed to provide pertinent information for the following purposes: continuity of care, clinical quality, and state data reporting. The complete legal record is available to ED staff and administrators of the receiving hospital in [facility]'s Patient [place] [address] EMS Patient Care Report Name: LESLEY PANDYA Room #: 444-P [facility] Alban TheodoreRBlanca#: [id number] Admission: 10/15/20 Attend Phys: Brandon Nascimento MD Discharge: Date of : 35 Report #: [id number] is provided "as is."
[~2020-10-15 18:58] MED LIST changes: -NARCAN4 MG NARES
[2020-10-15 18:59] VITALS: BP 119/61
[2020-10-15 19:11] LABS: BASOPHILS 0.8 % (0.0-2.0); EOSINOPHILS 0.5 % (0.0-3.0); HEMATOCRIT 27.8 % (37.0-47.0); HEMOGLOBIN 9.2 gm/dL (12.0-15.0); LYMPHOCYTES 35.9 % (24.0-44.0); MONOCYTES 9.7 % (1.0-8.0); PLATELET COUNT 66 thou/uL (150-400); POLYS 53.1 % (36.0-66.0); RDW 14.6 % (10.5-14.5); WBC 3.8 thou/uL (4.0-11.0)
[2020-10-15 19:21] LABS: CALCIUM 8.9 mg/dL (8.5-10.1); CREATININE 1.1 mg/dL (0.6-1.0); POTASSIUM 4.1 mmol/L (3.5-5.1)
[2020-10-15 19:27] LABS: ALBUMIN 3.8 g/dL (3.4-5.0); TOTAL BILIRUBIN 0.8 mg/dL (0.2-1.0); TOTAL PROTEIN 7.1 g/dL (6.4-8.2)
[2020-10-15 20:31] LABS: URINE BILIRUBIN NEGATIVE (Negative); URINE BLOOD 1+ (Negative); URINE CLARITY CLEAR; URINE COLOR YELLOW; URINE GLUCOSE-RANDOM* NEGATIVE (Negative); URINE KETONES NEGATIVE (Negative); URINE LEUKOCYTES-REFLEX TRACE (Negative); URINE NITRITE-REFLEX NEGATIVE (Negative); URINE PROTEIN (DIPSTICK) NEGATIVE (Negative); URINE SPECIFIC GRAVITY <= 1.005 (1.005-1.035); URINE UROBILINOGEN 0.2 E.U./dl (0.2-1.0)
[2020-10-15 20:35] LABS: SQUAMOUS 0-3 Few /LPF (0-3)
[2020-10-15 20:36] LABS: BACTERIA-REFLEX None Seen /HPF (None Seen); CASTS None Seen /LPF (None Seen); CRYSTALS None Seen /LPF (None Seen); URINE RBC 1-2 Rare /HPF (NONE SEEN); URINE WBC-REFLEX 6-15 Few /HPF (0-5)
--- NOTE | 2020-10-15 22:13 | NUR ---
THIS NURSE TO ROOM TO DISCUSS ADMISSION STATUS WITH PATIENT AND DAUGHTER. DAUGHTER IS INSITANT ON PATIENT BEING ADMITTED FOR PAIN CONTROL. PATIENT STATES SHE WANTS TO GO HOME AND DOES NOT WANT TO BE ADMITTED. PATIENT DOES NOT WANT TO STAY IF SHE CAN NOT BE GIVEN AN INPATIENT BED IMMEDIATELY. EDUCATION PROVIDED THAT AN INPATIENT BED MAY BE CHALLENGING TO ACCOMPLISH ACCORDING TO THEIR TIMELINE. HOWEVER, WE WILL DO OUR BEST TO KEEP HER COMFORTABLE BY PLACING HER INTO AN INPATIENT BED UNTIL A ROOM BECOMES AVAILABLE. PATIENT STATES "DON'T I HAVE A SAY IN THIS?" "I WANT TO GO HOME". PATIENT AND DAUGHTER DISCUSSING AT BEDSIDE.
--- NOTE | 2020-10-16 04:14 | NUR ---
PT WAS ADMITTED TO THE UNIT FROM THE ER IN A STABLE CONDITION.ADMISSION COMPLETED.PT C/O PAIN TO HER BACK AND ABD,HYDROGEN CELL TENDER ON DUTY NOTIFIED,ORDER NOTED AND CARRIED OUT.PAIN PUMP NOTED TO HER RL ABD.BRUISING NOTED UNDER HER LLE.PT ABLE TO MAKE HER NEEDS KNOWN.CALL LIGHT WITHIN REACH.
--- NOTE | 2020-10-16 11:05 | NUR ---
ASSUMED CARE OF PT AT 0700 THIS MORNING. PT IS A/OX4 AND COMPLAINING OF ABD CRAMPING. PT DOESN'T HAVE ANY PAIN THIS MORNING. ASSESSMENTS NOTED IN CHART AND OTHERWISE UNREMARKABLE. PT IS SB ASST TO BEDSIDE COMODE. IV IN RT AC SL. FALL PRECAUTIONS ARE IN PLACE AND CALL LIGHT AND OTHER NEEDS ARE WITHIN REACH. MEDS AND TX GIVEN NEEDED AND SCHEDULED. WILL MONITOR AND NOTE ANY CHANGES.
--- NOTE | 2020-10-16 12:52 | EKG ---
[address] [place] [address] ELECTROCARDIOGRAM REPORT Name: LESLEY PANDYA Room #: 444- ADM IN M.R.#: [id number] Admission: 10/15/20 Attend Phys: Lucas Gibbons MD Discharge: Date of : 35 Report #: [id number] [facility] ED Test Date: 2020-10-15 Test Time: 19:09:23 Pat Name: LESLEY PANDYA Department: Room: 444 Gender: F Eeg Technologist: NHI : 1935 Requested By: Rosi Cuenca Order Number: [id number] MD: Darnell Yadav Measurements Intervals [place] Rate: 88 P: 45 PA: 154 QRS: 8 QRSD: 96 T: 45 QT: 335 QTc: 406 Interpretive Statements Sinus rhythm Borderline low voltage, extremity leads Artifact in lead(s) V1,V2 Compared to ECG 10/03/2020 15:50:40 Atrial fibrillation no longer present Electronically Signed On 10-16-2020 12:52:18 CDT by Darnell Yadav [email or web address] <ELECTRONICALLY SIGNED> By: Darnell Yadav MD, [facility] 10/16/20 1252 [id number] 190 Darnell Yadav MD, [facility] /EPI
[2020-10-16 16:11] VITALS: BP 90/46
[2020-10-16 18:39] LABS: FOLIC ACID 11.4 ng/mL (8.6-58.9)
[2020-10-16 19:05] VITALS: BP 99/60
--- NOTE | 2020-10-16 21:05 | NUR ---
ASSESSMENT COMPLETED. PT ALREADY CHANGED AND READY FOR BED AT SHIFT CHANGE. CTA ORDER IN COMPUTER, TOLD PT AND SHE WAS OKAY TO GO DOWM. CALLED CT @79931, THEY WERE BUSY AND WOULD CALL ME BACK- STILL NOT READY UPTO NOW. PT ALREADY TIRED OF WAITING AND WANTS IT RE-SCHEDULED FOR TOMORROW. SHE IS TUCKED IN BED AND WANTS TO GO SLEEP. LEFT VM WITH ROSI GUERRA, AND ALSO CALLED CT.
--- NOTE | 2020-10-16 21:30 | NUR ---
ROSI RENTERIA WITH PATIENT HAVING CT IN THE MORNING LONG ITS BEFORE 0730. I RELAYED MSG TO CT.
[2020-10-17 04:35] VITALS: BP 135/73
[2020-10-17 05:49] LABS: HEMATOCRIT 27.4 % (37.0-47.0); HEMOGLOBIN 9.2 gm/dL (12.0-15.0); MCH 35.3 pg (26.0-34.0); MCHC 33.7 g/dL (28.0-37.0); MCV 104.6 fL (80.0-100.0); RBC 2.62 mil/uL (4.20-5.00); RDW 15.2 % (10.5-14.5); WBC 3.2 thou/uL (4.0-11.0)
[2020-10-17 06:05] LABS: CALCIUM 7.7 mg/dL (8.5-10.1); CREATININE 1.1 mg/dL (0.6-1.0); POTASSIUM 4.2 mmol/L (3.5-5.1)
--- NOTE | 2020-10-17 11:43 | NUR ---
ASSESSMENT: CM REVIEWED CHART AND MET WITH PATIENT AT THE BEDSIDE. PT WAS ADMITTED DUE TO ABDONIMAL PAIN AND PANCYTOPENIA. GI HAS BEEN CONSULTED WELL HEME/ONC. PT RPEORTS THAT SHE LIVES IN AN APT IN [facility]DEP[facility]ENT [facility]ING AT THE [facility]. PT REPORTS THAT SHE HAS NO STEPS TO ENTER HER APT AND REPORT GETTING AROUND WELL WITH HER ROLLATER WALKER. PT REPORTS THAT SHE HAS A GRAB BAR IN THE SHOWER AND IS INDEPENDENT WITH ADLS. PT REPORTS SHE HAS NOT PAST HX OF HH OR SNF. CM DISCUSSED ROLE. PHYSICAL THERAPY SAW PATIENT AND FEELS PATIENT IS SAFE FOR HOME AT DISCHARGE. PT DOES NOT FEEL SHE WILL NEED HOME HEALTH AT DISCHARGE. PT HAS A HX OF CHRONIC PAIN/DJD AND SEES DR. FLOYD OUTPATIENT FOR HER PAIN PUMP. PT IS TO HAVE AN ANGIOGRAM TODAY. CM WILL CONTINUE TO FOLLOW TO ASSIST NEEDED.
[2020-10-17] MEDS ORDERED: NARCAN4 MG NARES ×2 (11:51)
[2020-10-17 15:49] VITALS: BP 128/73
[2020-10-17 16:38] VITALS: BP 128/73
--- NOTE | 2020-10-17 16:44 | NUR ---
ASSUMED CARE AGAIN THIS MORNING AT 0700 THIS MORNING. ASSESSMENTS AND REPORT NO CHANGE SINCE REPORT LAST NIGHT, PT IS HAS CT THIS MORNING WITH CONTRAST. ASSESSMENTS CHARTED AND OTHERWISE UNREMARKABLE. SB ASST WHEN PT NEEDS TO GET UP. VSS, NO COMPLAINTS OF PAIN AND PT IS OTHERWISE FEELING MUCH BETTER. MEDS AND TX GIVEN NEEDED AND SCHEDULED. WILL MONITOR AND NOTE ANY CHANGES. PT HAS BEEN DISCHARGED BY HCP AND IS READY TO GO. PT SIGNED PAPERWORK AND EDUCATION MATERIAL GIVEN. PT WAS XFERRED TO FRONT BY W/C AND WENT HOME IN [facility].
== END 2020-10-17 17:55 | disposition home or self-care (01) ==
LOC: ER 18:58 → EROBS 23:13 → 4S 23:13
PROVIDERS: Hospitalist; Nurse Practitioner Family; Physician Assistant; ADMIT Family Medicine; ATTEND Family Medicine
DX: R10.31 Right lower quadrant pain (principal); Z20.822 Contact with and (suspected) exposure to COVID-19; M54.9 Dorsalgia, unspecified; F32.9 Major depressive disorder, single episode, unspecified; I48.91 Unspecified atrial fibrillation; J44.9 Chronic obstructive pulmonary disease, unspecified; I11.0 Hypertensive heart disease with heart failure; I50.9 Heart failure, unspecified; J96.11 Chronic respiratory failure with hypoxia; F41.9 Anxiety disorder, unspecified; D69.6 Thrombocytopenia, unspecified; K59.09 Other constipation; G89.4 Chronic pain syndrome; D61.818 Other pancytopenia; R16.0 Hepatomegaly, not elsewhere classified; Z79.01 Long term (current) use of anticoagulants; Z90.49 Acquired absence of other specified parts of digestive tract; Z87.891 Personal history of nicotine dependence; Z98.890 Other specified postprocedural states

== ENCOUNTER → 2020-11-03 | Outpatient (CLI) | payer OTHER, MEDICARE ==
[~2020-11-03] MED LIST changes: +NARCAN4 MG NARES
== END ==
LOC: SJCVC 15:36
PROVIDERS: ATTEND Internal Medicine Cardiovascular Disease
DX: I48.0 Paroxysmal atrial fibrillation (principal); E78.2 Mixed hyperlipidemia; D68.59 Other primary thrombophilia; I87.2 Venous insufficiency (chronic) (peripheral); I50.33 Acute on chronic diastolic (congestive) heart failure; I11.0 Hypertensive heart disease with heart failure; D61.818 Other pancytopenia; Z82.49 Family history of ischemic heart disease and other diseases of the circulatory system; Z79.899 Other long term (current) drug therapy; Z87.891 Personal history of nicotine dependence; Z72.89 Other problems related to lifestyle

== ENCOUNTER → 2021-01-23 | Outpatient (CLI) | payer OTHER, MEDICARE ==
[~2021-01-23] VITALS: Ht 152.4 cm; Wt 68.9 kg
[2021-01-23 12:40] VITALS: BP 129/50
--- NOTE | 2021-01-23 12:43 | NUR ---
Pain Clinic Assessment: 1. History of Osteoarthritis: GENERALIZED History of Rheumatoid Arthritis: Not Applicable 2. Height: 5 ft. 0 in. 152.4 cm. Weight: 152.0 lb. oz. 68.947 kg. Patient's BMI: 29.7 3. Vital Signs: BP: 129/50 Pulse: 73 Resp: 16 Temp: 02 Sat: 98 ECG Mon: 4. Pain Intensity: 8 5. Fall Risk: Dizziness: N Needs help standing or walking: N Fallen in the last 3 months: N Fall risk comments: FELL ONE MONTH AGO WHEN SHE LOST HER BALANCE. DENIES INJURY 6. Patient on Blood Thinner: xarelto 7. History of Hypertension: Y 8. Opioid Therapy greater than 6 weeks: Y Opiate Contract Signed: 03/29/16 9. Risk Assessment Tool Provided: LOW RISK 1 10. Functional Assessment Tool: 58/70 11. Recreational Drug Use: Never Drug Type: Tobacco Use: Former Smoker Tobacco Type: Amount or Packs/day: How Many Years: Alcohol Use: Yes Frequency: Quant:
== END | disposition home or self-care (01) ==
LOC: PAIN 10:35
PROVIDERS: ATTEND Anesthesiology Pain Medicine
DX: Z45.1 Encounter for adjustment and management of infusion pump (principal); G89.29 Other chronic pain; M54.16 Radiculopathy, lumbar region; I10 Essential (primary) hypertension; Z79.891 Long term (current) use of opiate analgesic; Z98.890 Other specified postprocedural states; Z79.899 Other long term (current) drug therapy; Z87.891 Personal history of nicotine dependence

== ENCOUNTER → 2021-03-29 | Outpatient (CLI) | payer OTHER, MEDICARE ==
[~2021-03-29] MED LIST changes: +PROTONIX40 M4 PO; +TENORMIN50 MG PO; +XARELTO15 MG PO
--- NOTE | 2021-03-31 13:08 | PATH ---
[facility] [address] [place] [address] PATHOLOGY RPT PROCEDURE Name: LESLEY CORDERO Room #: REG NIKKI Adan.#: [id number] Admission: 03/29/21 Date of : 35 Discharge: Report #: [id number] Path Case #: [id number] [facility] Accession Number: [id number] . 01 Material submitted: . gastrointestinal site - GASTRIC BIOPSY- R/O H. PYLORI . 01 Clinical history: . EGD DYSPHAGIA/RECTAL BLEEDING . 02 Diagnosis: Gastric, biopsy: - Gastric antral mucosa with features of mild reactive gastropathy. - An immunohistochemical stain for H. pylori-like organism is negative. (ANK/db; 03/31/2021) LBQ 03/31/2021 1030 Local . 02 Electronically signed: . Dona Sood MD, Pathologist NPI- [id number] . 01 Gross description: . The specimen is received in formalin, labeled "Cordero, Lesley, Gastric Bx-R/O H-pylori" and consists of 3 cunningham irregular tissues aggregating 0.8 x 0.4 x 0.2 cm which are submitted in toto in A1. (CHITIMACHA; 03/30/2021) DKA/DKA 03/31/2021 1028 Local . 02 Pathologist provided ICD-10: R13.10, K62.5 . 02 CPT . 228248, R10071 Specimen Comment: A courtesy copy of this report has been sent to [phone], [phone] Specimen Comment: [id number] Specimen Comment: Report sent to / DR DELGADO Performed at: [address], [place] [id number] MD William Pillai MD Phone: [phone] Performed at: [address] [id number] MD Dona Sood MD Phone: [phone]
--- NOTE | 2021-04-03 14:36 | P ---
[facility] [place] [address] PROCEDURE REPORT Name: LESLEY PANDYA Room #: REG NIKKI Bennett#: [id number] Admission: 03/29/21 Attend Phys: Emmett Ibarra Discharge: Date of : 35 Report #: [id number] THIS REPORT FOR: cc: Brandon Nascimento MD, Neal A. MD McElhinney, Christian C. MD ~ cc: Brandon Nascimento MD DATE OF SERVICE: 03/29/2021 PROCEDURE PERFORMED: Upper endoscopy with biopsies and esophageal dilation. HISTORY OF PRESENT ILLNESS: The patient is an 85-year-old female with a history of recurrent dysphagia. She has a known history of a Zenker's diverticulum, was evaluated by ENT and recommended not to proceed with surgery. She has had dilations in the past, which she benefited from. She also has complaints of abdominal pain. This can be mid epigastric and periumbilical as well as other areas, also has had recent bright red blood per rectum. Plan is for EGD and flexible sigmoidoscopy today. DESCRIPTION OF PROCEDURE: The risks and benefits of the procedure were explained to the patient, those risks including but not limited to bleeding, perforation and the risk of sedation. She understood these risks and gave informed consent. Sedation was given using propofol per Anesthesia. Next, using a standard Olympus upper endoscope, the scope was placed in the patient's mouth and advanced under direct vision through the esophagus, stomach and into the second portion of the duodenum. The larynx was normal in appearance. A small Zenker's diverticulum was noted. I was able to easily advance the scope through this area. The mid and distal esophagus were normal. The GE junction was normal. Upon entering the stomach, a small hiatal hernia was noted. Overall, the gastric mucosa was normal. Biopsies were obtained to rule out H. pylori. The pylorus was normal and patent. The duodenal bulb, first and second portion were all normal. The scope was then brought back up into the patient's stomach and a Savary guidewire was inserted through the scope, leaving the guidewire in place as the scope was then withdrawn. Next, a 48-Turkmen Savary dilation of the esophagus was then performed without difficulty. The wire and dilator were removed. The scope was reintroduced into the patient's stomach. No evidence of mucosal tear was noted after dilation. The scope was then withdrawn and the procedure terminated. The patient tolerated the procedure well. IMPRESSION: 1. Small Zenker's diverticulum. 2. Small hiatal hernia. 3. Otherwise, normal upper endoscopy. [address] [address] PROCEDURE REPORT Name: MIRIAN PANDYAY Room #: REG NIKKI Bennett#: [id number] Admission: 03/29/21 Attend Phys: Emmett Ibarra Discharge: Date of : 35 Report #: [id number] RECOMMENDATIONS: 1. Await biopsy results. 2. Observe the patient post-dilation. 3. We will proceed with flexible sigmoidoscopy next today. Thank you for allowing me to participate in her care. <ELECTRONICALLY SIGNED> By: Emmett Gant MD 04/03/21 1436 1104 1943 Emmett Gant MD /nt
--- NOTE | 2021-04-03 14:36 | P ---
[facility] [place] [address] PROCEDURE REPORT Name: LESLEY PANDYA Room #: REG NIKKI Bennett#: [id number] Admission: 03/29/21 Attend Phys: Emmett Ibarra Discharge: Date of : 35 Report #: [id number] THIS REPORT FOR: cc: Brandon Nascimento MD, Neal A. MD McElhinney, Christian C. MD ~ cc: Brandon Nascimento MD DATE OF SERVICE: 03/29/2021 PROCEDURE PERFORMED: Flexible sigmoidoscopy. HISTORY OF PRESENT ILLNESS: The patient is an 85-year-old female who was hospitalized in September of last year for abdominal pain. CT scan of the abdomen and pelvis was negative. Previous history of CT arteriogram was also negative other than diverticulosis, mildly dilated common bile duct; however, the patient has had a previous laparoscopic cholecystectomy. She has had recurrent dysphagia. I just performed upper endoscopy with dilation on the patient. She has a known Zenker's diverticulum. This was too small to be considered for surgical repair. She has had benefits with dilation in the past. Recently, she has had some bright red blood per rectum for 10 days, which has now resolved. She has a known history of diverticulosis. She also has a history of partial colon resection for diverticulitis in the past. At this time, she was complaining of mid epigastric periumbilical abdominal pain. She has tried dicyclomine. She is also on a pain pump. She also has a history of chronic constipation, on Linzess on a daily basis. Plan is for flexible sigmoidoscopy. DESCRIPTION OF PROCEDURE: The risks and benefits of the procedure were explained to the patient, those risks including but not limited to bleeding, perforation and the risk of sedation. She understood these risks and gave informed consent. Sedation was given using propofol per anesthesia. Next, a digital rectal exam was initially performed, which was normal. Next, using a standard Olympus colonoscope, the scope was placed in the patient's anus and advanced under direct vision to the ascending colon. The overall prep was good. The distal ascending, transverse and descending colon were normal. Multiple diverticula were noted in the sigmoid colon. No evidence of inflammation, otherwise normal. The rectal mucosa was normal. On retroflexion, small nonbleeding internal hemorrhoids were noted. The scope was then withdrawn and the procedure terminated. The patient tolerated the procedure well. IMPRESSION: 1. Sigmoid diverticulosis. 2. Internal hemorrhoids. 3. Otherwise, normal flexible sigmoidoscopy. There was no evidence of bleeding on exam today. [address] [address] PROCEDURE REPORT Name: LESLEY PANDYA Room #: REG NIKKI Bennett#: [id number] Admission: 03/29/21 Attend Phys: Emmett Ibarra Discharge: Date of : 35 Report #: [id number] RECOMMENDATION: Recent bright red blood per rectum may have been from a diverticular bleed or internal hemorrhoids. At this point, we would observe. Thank you for allowing me to participate in her care. <ELECTRONICALLY SIGNED> By: Emmett Gant MD 04/03/21 1436 1120 195 Emmett Gant MD /nt
== END ==
LOC: GI 09:33
PROVIDERS: ATTEND Specialist
DX: R10.13 Epigastric pain (principal); K57.30 Diverticulosis of large intestine without perforation or abscess without bleeding; K64.8 Other hemorrhoids; K22.5 Diverticulum of esophagus, acquired; K44.9 Diaphragmatic hernia without obstruction or gangrene; I50.9 Heart failure, unspecified; M54.59 Other low back pain; G89.29 Other chronic pain; Z98.890 Other specified postprocedural states; Z79.899 Other long term (current) drug therapy; Z20.822 Contact with and (suspected) exposure to COVID-19
CPT/HCPCS: 62110; 62900